=== PATIENT | female | born 1970 | race Caucasian/White ===

== ENCOUNTER 2018-04-28 18:24 | Inpatient (IN) | payer OTHER ==
[~2018-04-28] VITALS: Ht 152.4 cm; Wt 76.5 kg
[~2018-04-28 18:24] MED LIST: ABAC300; ALBU90I INH; ALBU90OI; ALBU90OI INH; AMOCLA875 PO; AZIT250 PO; AZIT500 PO; BENZ100A PO; BUDE200IP INH; BUPR100 PO; CEFD300 PO; CEPH500 PO; CODACE30 PO; CYCL10 PO; Cough Formula118 ML PO; DIPH50 PO; DOXY100 PO; DULERA 200 MCG/13 GM INH; FEXPSEER PO; FLONASE ALLERG9.9 ML INH; FLUSAL5005; FLUT110OIA IH; FLUT44OIA; GABA300 PO; HIZENTRA10 GM/50 M SC; HYDACE5 PO; HYDGUAL120 PO; HYDHOMSY PO; IBUP800; IBUP800 PO; LANS30EC; LEVFLO500 PO; LEVO750 PO; LOPE2C PO; LORA1 PO; MONT10T PO; NAPR500; OXYACE5T PO; Omeprazole20 M1 PO; PAXIL40 MG PO; PENVK500 PO; PRED1 PO; PRED10 PO; PRED20 PO; PRED5 PO; PROM25 PO; RANI150; RXHYDGUAS PO; TIOT18 IH; TRAZ50; TRAZ50 PO; VALS80 PO; Zithromax250 MG PO
[2018-04-28 19:14] LABS: BASOPHILS ABSOLUTE AUTO 0.09 K/mm3 (0.00-0.23); BASOPHILS PERCENT AUTO 0 % (0-2); EOSINOPHILS ABSOLUTE AUTO 0.06 K/mm3 (0.00-0.68); EOSINOPHILS PERCENT AUTO 0 % (0-6); Hematocrit 22.1 % (33.0-51.0); IMMATURE GRAN ABSOLUTE AUTO 0.48 K/mm3 (0.00-0.10); IMMATURE GRAN PERCENT AUTO 1 % (0-1); LYMPHOCYTES ABSOLUTE AUTO 1.71 K/mm3 (0.84-5.20); LYMPHOCYTES PERCENT AUTO 5 % (21-46); MONOCYTES ABSOLUTE AUTO 1.09 K/mm3 (0.16-1.47); MONOCYTES PERCENT AUTO 3 % (4-13); Mean Corpuscular HGB Conc 26.2 g/dL (31.5-36.5); Mean Corpuscular Volume 69 fL (80-100); Mean Platelet Volume 10.6 fL (9.1-12.4); NEUTROPHILS ABSOLUTE AUTO 30.04 K/mm3 (1.96-9.15); NEUTROPHILS PERCENT AUTO 90 % (41-73); NRBC ABSOLUTE 0.03 K/mm3 (0.00-0.02); NRBC Auto 0.1 /100 WBC (0.0-0.2); Platelet Count 278 K/mm3 (150-400); RDW Coefficient Variation 24.1 % (11.7-14.2); RDW Standard Deviation 57.6 fL (35.1-46.3); Red Blood Cell Count 3.22 M/mm3 (3.80-5.20); White Blood Cell Count 33.47 K/mm3 (4.00-11.30)
[2018-04-28 19:20] LABS: Hemoglobin 5.8 g/dL (11.5-16.0)
[2018-04-28 19:21] LABS: Alanine Aminotransfer (ALT/SGP 18 U/L (12-78); Albumin, Blood 3.2 g/dL (3.4-5.0); Alk Phos 119 U/L (50-136); Anion Gap 11 mmol/L (6-16); Aspartate Aminotrans (AST/SGOT 18 U/L (12-37); Bilirubin, Total 0.2 mg/dL (0.1-1.0); Blood Urea Nitrogen 8 mg/dL (8-24); Bun/Creatinine Ratio 10.8 (12.0-20.0); CO2, Blood 22 mmol/L (21-32); Calcium, Blood 8.1 mg/dL (8.5-10.1); Chloride, Blood 106 mmol/L (98-108); Creatinine, Blood 0.74 mg/dL (0.40-1.00); Globulin, Blood 3.3 g/dL (2.2-4.0); Glomerular Filtration Rate >60 (60-); Glucose, Blood 119 mg/dL (70-99); Potassium, Blood 3.7 mmol/L (3.5-5.5); Sodium, Blood 139 mmol/L (136-145); Total Protein, Blood 6.5 g/dL (6.4-8.2)
[2018-04-28] MEDS ORDERED: LOSA50 PO (23:16)
[2018-04-28] MEDS ORDERED: DIPH50 PO (23:20)
[2018-04-28] MEDS ORDERED: ACET325 PO (23:22)
[2018-04-28 23:46] LABS: Source, Urine Catheter
[2018-04-28 23:49] LABS: Bilirubin, Urine Neg (Neg); Blood, Urine Neg (Neg); Glucose Qualitative, Urine Neg (Neg); Ketones, Urine Neg (Neg); Leukocyte Esterase, Urine Neg (Neg); Nitrite, Urine Neg (Neg); Protein, Urine Neg (Neg); Specific Gravity, Urine 1.015 (1.003-1.022); Urobilinogen, Urine NORM (Normal)
[2018-04-28 23:53] LABS: Appearance, Urine Clear (Clear); Color, Urine Yellow (P-Yellow)
[2018-04-29 02:25] LABS: Adenovirus Not Detected (NOT DETECT); Bordetella pertussis Not Detected (NOT DETECT); Chlamydophila pneumoniae Not Detected (NOT DETECT); Coronavirus 229E Not Detected (NOT DETECT); Coronavirus HKU1 Not Detected (NOT DETECT); Coronavirus NL63 Not Detected (NOT DETECT); Coronavirus OC43 Not Detected (NOT DETECT); Human Metapneumovirus Not Detected (NOT DETECT); Human Rhinovirus/Enterovirus Not Detected (NOT DETECT); Influenza A/2009-H1 Not Detected (NOT DETECT); Influenza A/H1 Not Detected (NOT DETECT); Influenza A/H3 Not Detected (NOT DETECT); Influenza B Not Detected (NOT DETECT); Mycoplasma pneumoniae Not Detected (NOT DETECT); Parainfluenza Virus 1 Not Detected (NOT DETECT); Parainfluenza Virus 2 Not Detected (NOT DETECT); Parainfluenza Virus 3 Not Detected (NOT DETECT); Parainfluenza Virus 4 Not Detected (NOT DETECT); Respiratory Syncytial Virus Not Detected (NOT DETECT)
[2018-04-29 05:15] LABS: BASOPHILS ABSOLUTE AUTO 0.05 K/mm3 (0.00-0.23); BASOPHILS PERCENT AUTO 0 % (0-2); EOSINOPHILS ABSOLUTE AUTO 0.06 K/mm3 (0.00-0.68); EOSINOPHILS PERCENT AUTO 0 % (0-6); Hematocrit 19.4 % (33.0-51.0); IMMATURE GRAN ABSOLUTE AUTO 0.24 K/mm3 (0.00-0.10); IMMATURE GRAN PERCENT AUTO 1 % (0-1); LYMPHOCYTES ABSOLUTE AUTO 2.37 K/mm3 (0.84-5.20); LYMPHOCYTES PERCENT AUTO 9 % (21-46); MONOCYTES ABSOLUTE AUTO 1.14 K/mm3 (0.16-1.47); MONOCYTES PERCENT AUTO 4 % (4-13); Mean Corpuscular HGB 18.2 pg (26.0-34.0); Mean Corpuscular HGB Conc 25.8 g/dL (31.5-36.5); Mean Corpuscular Volume 71 fL (80-100); NEUTROPHILS ABSOLUTE AUTO 23.04 K/mm3 (1.96-9.15); NEUTROPHILS PERCENT AUTO 86 % (41-73); NRBC ABSOLUTE 0.03 K/mm3 (0.00-0.02); NRBC Auto 0.1 /100 WBC (0.0-0.2); Platelet Count 262 K/mm3 (150-400); RDW Coefficient Variation 24.6 % (11.7-14.2); RDW Standard Deviation 59.7 fL (35.1-46.3); Red Blood Cell Count 2.75 M/mm3 (3.80-5.20)
[2018-04-29 05:31] LABS: Anion Gap 9 mmol/L (6-16); Blood Urea Nitrogen 9 mg/dL (8-24); Bun/Creatinine Ratio 11.3 (12.0-20.0); CO2, Blood 21 mmol/L (21-32); Calcium, Blood 7.4 mg/dL (8.5-10.1); Chloride, Blood 113 mmol/L (98-108); Glomerular Filtration Rate >60 (60-); Glucose, Blood 105 mg/dL (70-99); Potassium, Blood 3.5 mmol/L (3.5-5.5); Sodium, Blood 143 mmol/L (136-145)
[2018-04-29 18:18] LABS: Influenza A Not Detected (NOT DETECT)
[2018-04-30 07:46] LABS: Hematocrit 19.3 % (33.0-51.0); Mean Corpuscular HGB 18.2 pg (26.0-34.0); Mean Corpuscular HGB Conc 26.4 g/dL (31.5-36.5); Mean Corpuscular Volume 69 fL (80-100); Mean Platelet Volume 10.7 fL (9.1-12.4); NRBC ABSOLUTE 0.09 K/mm3 (0.00-0.02); NRBC Auto 0.5 /100 WBC (0.0-0.2); Platelet Count 369 K/mm3 (150-400); RDW Standard Deviation 59.4 fL (35.1-46.3); White Blood Cell Count 19.88 K/mm3 (4.00-11.30)
[2018-04-30 07:53] LABS: Hemoglobin 5.1 g/dL (11.5-16.0)
[2018-04-30 08:06] LABS: Anion Gap 8 mmol/L (6-16); Blood Urea Nitrogen 6 mg/dL (8-24); Bun/Creatinine Ratio 8.8 (12.0-20.0); CO2, Blood 22 mmol/L (21-32); Calcium, Blood 7.8 mg/dL (8.5-10.1); Chloride, Blood 108 mmol/L (98-108); Creatinine, Blood 0.68 mg/dL (0.40-1.00); Glomerular Filtration Rate >60 (60-); Glucose, Blood 107 mg/dL (70-99); Sodium, Blood 138 mmol/L (136-145)
[2018-05-01 04:14] LABS: Hematocrit 19.7 % (33.0-51.0); Mean Corpuscular HGB 18.1 pg (26.0-34.0); Mean Corpuscular HGB Conc 25.4 g/dL (31.5-36.5); Mean Corpuscular Volume 71 fL (80-100); Mean Platelet Volume 10.9 fL (9.1-12.4); NRBC ABSOLUTE 0.09 K/mm3 (0.00-0.02); NRBC Auto 0.6 /100 WBC (0.0-0.2); Platelet Count 423 K/mm3 (150-400); RDW Coefficient Variation 25.4 % (11.7-14.2); RDW Standard Deviation 61.4 fL (35.1-46.3); Red Blood Cell Count 2.77 M/mm3 (3.80-5.20)
[2018-05-01 22:36] LABS: Stool Occult Blood Guaiac 1 Neg (Neg)
[2018-05-02 03:48] LABS: Hematocrit 21.8 % (33.0-51.0); Mean Corpuscular HGB 18.3 pg (26.0-34.0); Mean Corpuscular HGB Conc 25.7 g/dL (31.5-36.5); Mean Corpuscular Volume 71 fL (80-100); Mean Platelet Volume 9.9 fL (9.1-12.4); NRBC ABSOLUTE 0.16 K/mm3 (0.00-0.02); NRBC Auto 1.2 /100 WBC (0.0-0.2); Platelet Count 575 K/mm3 (150-400); RDW Standard Deviation 60.4 fL (35.1-46.3); Red Blood Cell Count 3.06 M/mm3 (3.80-5.20); White Blood Cell Count 13.25 K/mm3 (4.00-11.30)
[2018-05-02 03:49] LABS: Hemoglobin 5.6 g/dL (11.5-16.0)
[2018-05-03 04:38] LABS: Hematocrit 23.2 % (33.0-51.0); Hemoglobin 6.1 g/dL (11.5-16.0); Mean Corpuscular HGB 19.1 pg (26.0-34.0); Mean Corpuscular HGB Conc 26.3 g/dL (31.5-36.5); Mean Corpuscular Volume 73 fL (80-100); NRBC ABSOLUTE 0.22 K/mm3 (0.00-0.02); NRBC Auto 2.1 /100 WBC (0.0-0.2); Platelet Count 591 K/mm3 (150-400); RDW Coefficient Variation 27.2 % (11.7-14.2); RDW Standard Deviation 60.5 fL (35.1-46.3); White Blood Cell Count 10.68 K/mm3 (4.00-11.30)
[2018-05-03] MEDS ORDERED: GABA300 (14:44)
[2018-05-03] MEDS ORDERED: GUAI600T33 PO (14:45)
[2018-05-03] MEDS ORDERED: ASCO500 PO (14:46)
[2018-05-03] MEDS ORDERED: Ferrous Sulfat325 M2 PO (14:48)
[2018-05-03] MEDS ORDERED: LEVO750 PO (14:48)
== END 2018-05-03 15:45 | disposition home or self-care (01) | DRG 871 ==
LOC: ER 18:24 → PCU 18:25 → ICUW 22:13 → MEDS 05-02 13:55 → ENPENDDIS 05-03 15:00 → MEDS 05-03 15:45
PROVIDERS: Emergency Medicine; Internal Medicine; Nurse Practitioner Acute Care
DX: A41.9 Sepsis, unspecified organism (principal); J18.9 Pneumonia, unspecified organism; J96.01 Acute respiratory failure with hypoxia; J44.0 Chronic obstructive pulmonary disease with (acute) lower respiratory infection; R65.20 Severe sepsis without septic shock; D50.9 Iron deficiency anemia, unspecified; I10 Essential (primary) hypertension
CPT/HCPCS: 36415; 71046; 74150; 80048; 80053; 81003; 82272; 83605; 84145; 85025; 85027; 87040; 87070; 87205; 87449; 87486; 87581; 87633; 87798; 93005; 93010; 94640; 94760; 94761; 96361; 96365; 96375; 97162; 97530; 99285-25; G8978; G8979; G8980; J0696; J0885; J1956; J2405; J2543; J2916; J3010; J3370; J7030; J7050; Q0163

== ENCOUNTER → 2019-02-08 | Outpatient (CLI) | payer OTHER ==
[~2019-02-08] MED LIST changes: +ACET325 PO; +ASCO500 PO; +Ferrous Sulfat325 M2 PO; +GABA300; +GUAI600T33 PO; +LOSA50 PO
[2019-02-08 08:29] LABS: Source, Urine Clean Catch
[2019-02-08 12:18] LABS: Bilirubin, Urine Neg (Neg); Blood, Urine 1+ (Neg); Glucose Qualitative, Urine Neg (Neg); Ketones, Urine Neg (Neg); Leukocyte Esterase, Urine 3+ (Neg); Nitrite, Urine Neg (Neg); Protein, Urine Neg (Neg); Specific Gravity, Urine 1.015 (1.003-1.022); Urobilinogen, Urine NORM (Normal)
[2019-02-08 12:59] LABS: Appearance, Urine Hazy (Clear); Color, Urine Yellow (P-Yellow)
[2019-02-08 13:00] LABS: Squamous Epithelial Cells Many /hpf (Few); White Blood Cells, Urine 25-50 /hpf (0-5)
[2019-02-08 13:01] LABS: Bacteria Mod /hpf
== END ==
LOC: LAB SHORT 08:27 → LAB 08:27
PROVIDERS: Nurse Practitioner Family
DX: N39.0 Urinary tract infection, site not specified (principal)
CPT/HCPCS: 81001

== ENCOUNTER 2019-05-29 13:40 | Emergency (ER) | payer OTHER ==
[~2019-05-29] VITALS: Ht 152.4 cm; Wt 76.2 kg
[2019-05-29 14:21] LABS: BASOPHILS ABSOLUTE AUTO 0.08 K/mm3 (0.00-0.23); BASOPHILS PERCENT AUTO 0 % (0-2); EOSINOPHILS ABSOLUTE AUTO 0.32 K/mm3 (0.00-0.68); EOSINOPHILS PERCENT AUTO 2 % (0-6); Hematocrit 44.8 % (33.0-51.0); Hemoglobin 14.2 g/dL (11.5-16.0); IMMATURE GRAN ABSOLUTE AUTO 0.09 K/mm3 (0.00-0.10); IMMATURE GRAN PERCENT AUTO 1 % (0-1); LYMPHOCYTES ABSOLUTE AUTO 2.66 K/mm3 (0.84-5.20); LYMPHOCYTES PERCENT AUTO 14 % (21-46); MONOCYTES ABSOLUTE AUTO 1.07 K/mm3 (0.16-1.47); MONOCYTES PERCENT AUTO 6 % (4-13); Mean Corpuscular HGB 29.4 pg (26.0-34.0); Mean Corpuscular HGB Conc 31.7 g/dL (31.5-36.5); Mean Corpuscular Volume 93 fL (80-100); Mean Platelet Volume 9.1 fL (9.1-12.4); NEUTROPHILS ABSOLUTE AUTO 15.26 K/mm3 (1.96-9.15); NEUTROPHILS PERCENT AUTO 78 % (41-73); Platelet Count 472 K/mm3 (150-400); RDW Coefficient Variation 13.2 % (11.7-14.2); RDW Standard Deviation 44.9 fL (35.1-46.3); Red Blood Cell Count 4.83 M/mm3 (3.80-5.20); White Blood Cell Count 19.48 K/mm3 (4.00-11.30)
[2019-05-29 14:40] LABS: Alanine Aminotransfer (ALT/SGP 28 U/L (12-78); Albumin, Blood 3.5 g/dL (3.4-5.0); Alk Phos 143 U/L (50-136); Anion Gap 4 mmol/L (6-16); Aspartate Aminotrans (AST/SGOT 19 U/L (12-37); Bilirubin, Total 0.2 mg/dL (0.1-1.0); Blood Urea Nitrogen 9 mg/dL (8-24); Bun/Creatinine Ratio 13.3 (12.0-20.0); CO2, Blood 28 mmol/L (21-32); Calcium, Blood 8.6 mg/dL (8.5-10.1); Chloride, Blood 105 mmol/L (98-108); Creatinine, Blood 0.68 mg/dL (0.40-1.00); Globulin, Blood 3.4 g/dL (2.2-4.0); Glomerular Filtration Rate >60 (60-); Glucose, Blood 98 mg/dL (70-99); Potassium, Blood 4.6 mmol/L (3.5-5.5); Sodium, Blood 137 mmol/L (136-145); Total Protein, Blood 6.9 g/dL (6.4-8.2)
[2019-06-26] MEDS ORDERED: BUPROPION XL150 MG PO
== END 2019-05-29 17:25 | disposition home or self-care (01) ==
LOC: ER 13:40
PROVIDERS: Physician Assistant
DX: G43.909 Migraine, unspecified, not intractable, without status migrainosus (principal); Z87.891 Personal history of nicotine dependence; J44.9 Chronic obstructive pulmonary disease, unspecified; D64.9 Anemia, unspecified; Z88.2 Allergy status to sulfonamides; Z88.8 Allergy status to other drugs, medicaments and biological substances; Z79.899 Other long term (current) drug therapy
CPT/HCPCS: 36415; 70450; 80053; 85025; 96361; 96374; 96375; 99284-25; J0780; J1100; J1200; J1885; J7030

== ENCOUNTER 2019-06-26 23:35 | Inpatient (IN) | payer OTHER ==
[~2019-06-26] VITALS: Ht 152.4 cm; Wt 80.0 kg
[~2019-06-26 23:35] MED LIST changes: +BUPROPION XL150 MG PO
[2019-06-26] MEDS ORDERED: MONT10T PO (23:58)
[2019-06-26] MEDS ORDERED: PARO20 PO (23:58)
[2019-06-26] MEDS ORDERED: GABA300 PO (23:58)
[2019-06-26] MEDS ORDERED: Inderal 20 mg T20 MG PO (23:59)
[2019-06-26] MEDS ORDERED: Pyridium200 MG PO (23:59)
[2019-06-26] MEDS ORDERED: LOSA50 PO (23:59)
[2019-06-26] MEDS ORDERED: BENZ100A PO (23:59)
[2019-06-26] MEDS ORDERED: Ferosul325 MG PO (23:59)
[2019-06-27 00:01] LABS: BASOPHILS ABSOLUTE AUTO 0.09 K/mm3 (0.00-0.23); BASOPHILS PERCENT AUTO 0 % (0-2); EOSINOPHILS PERCENT AUTO 0 % (0-6); Hematocrit 43.4 % (33.0-51.0); Hemoglobin 14.2 g/dL (11.5-16.0); IMMATURE GRAN ABSOLUTE AUTO 0.15 K/mm3 (0.00-0.10); IMMATURE GRAN PERCENT AUTO 1 % (0-1); LYMPHOCYTES ABSOLUTE AUTO 0.94 K/mm3 (0.84-5.20); LYMPHOCYTES PERCENT AUTO 3 % (21-46); MONOCYTES ABSOLUTE AUTO 0.86 K/mm3 (0.16-1.47); MONOCYTES PERCENT AUTO 3 % (4-13); Mean Corpuscular HGB 29.4 pg (26.0-34.0); Mean Corpuscular HGB Conc 32.7 g/dL (31.5-36.5); Mean Corpuscular Volume 90 fL (80-100); Mean Platelet Volume 9.4 fL (9.1-12.4); NEUTROPHILS ABSOLUTE AUTO 25.31 K/mm3 (1.96-9.15); NEUTROPHILS PERCENT AUTO 92 % (41-73); Platelet Count 422 K/mm3 (150-400); RDW Coefficient Variation 13.3 % (11.7-14.2); RDW Standard Deviation 43.6 fL (35.1-46.3); Red Blood Cell Count 4.83 M/mm3 (3.80-5.20); White Blood Cell Count 27.45 K/mm3 (4.00-11.30)
[2019-06-27 00:18] LABS: Alanine Aminotransfer (ALT/SGP 17 U/L (12-78); Albumin, Blood 3.2 g/dL (3.4-5.0); Albumin/Globulin Ratio 0.9 (0.8-1.8); Alk Phos 123 U/L (50-136); Anion Gap 6 mmol/L (6-16); Aspartate Aminotrans (AST/SGOT 23 U/L (12-37); Bilirubin, Total 0.3 mg/dL (0.1-1.0); Blood Urea Nitrogen 7 mg/dL (8-24); Bun/Creatinine Ratio 8.5 (12.0-20.0); CO2, Blood 26 mmol/L (21-32); Calcium, Blood 8.4 mg/dL (8.5-10.1); Chloride, Blood 105 mmol/L (98-108); Creatinine, Blood 0.82 mg/dL (0.40-1.00); Globulin, Blood 3.5 g/dL (2.2-4.0); Glomerular Filtration Rate >60 (60-); Glucose, Blood 114 mg/dL (70-99); Potassium, Blood 3.6 mmol/L (3.5-5.5); Sodium, Blood 137 mmol/L (136-145); Total Protein, Blood 6.7 g/dL (6.4-8.2); Troponin I <0.015 ng/mL (0.000-0.040)
[2019-06-27 00:56] LABS: Influenza A Negative (NEGATIVE)
[2019-06-27 00:57] LABS: Influenza B Negative (NEGATIVE)
[2019-06-27 04:02] LABS: Source, Urine Clean Catch
[2019-06-27 04:04] LABS: Bilirubin, Urine Neg (Neg); Blood, Urine Neg (Neg); Glucose Qualitative, Urine Neg (Neg); Ketones, Urine Neg (Neg); Leukocyte Esterase, Urine Neg (Neg); Nitrite, Urine Neg (Neg); Protein, Urine Neg (Neg); Specific Gravity, Urine 1.015 (1.003-1.022); Urobilinogen, Urine NORM (Normal)
[2019-06-27 04:09] LABS: Appearance, Urine Clear (Clear); Color, Urine Yellow (P-Yellow)
--- NOTE | 2019-06-27 04:56 | NUR ---
Critical lactic acid called to dr but no answer awaiting call back, pt resting quietly, will continue to monitor and treat as appropriate
--- NOTE | 2019-06-27 05:14 | NUR ---
dr ordered bolus remainin fluids then continue with rate of 200, bolus started, will continue to monitor and treat
--- NOTE | 2019-06-27 06:34 | NUR ---
arrived from er via stretcher, states she was able to walk prior to coming to the hospital, good historian, but frequent non productive cough, at bedside, called dr with cv told to bolus remaining ns then to run the next lt of ns at 200, bolus done and 200 ml/h running currently with no s/sx of infection or infiltration, pt is snoring when asleep but a+o when wakened, will continue to monitor and treat as appropriate
[2019-06-27 13:27] LABS: BASOPHILS PERCENT AUTO 0 % (0-2); EOSINOPHILS ABSOLUTE AUTO 0.02 K/mm3 (0.00-0.68); EOSINOPHILS PERCENT AUTO 0 % (0-6); Hematocrit 39.5 % (33.0-51.0); Hemoglobin 12.5 g/dL (11.5-16.0); IMMATURE GRAN ABSOLUTE AUTO 0.26 K/mm3 (0.00-0.10); IMMATURE GRAN PERCENT AUTO 1 % (0-1); LYMPHOCYTES ABSOLUTE AUTO 2.26 K/mm3 (0.84-5.20); LYMPHOCYTES PERCENT AUTO 7 % (21-46); MONOCYTES ABSOLUTE AUTO 0.96 K/mm3 (0.16-1.47); MONOCYTES PERCENT AUTO 3 % (4-13); Mean Corpuscular HGB 29.3 pg (26.0-34.0); Mean Corpuscular HGB Conc 31.6 g/dL (31.5-36.5); Mean Platelet Volume 9.8 fL (9.1-12.4); NEUTROPHILS PERCENT AUTO 89 % (41-73); Platelet Count 330 K/mm3 (150-400); RDW Coefficient Variation 13.8 % (11.7-14.2); RDW Standard Deviation 46.6 fL (35.1-46.3); Red Blood Cell Count 4.26 M/mm3 (3.80-5.20)
[2019-06-27 13:45] LABS: Mean Corpuscular Volume 93 fL (80-100)
[2019-06-27 14:07] LABS: Anion Gap 3 mmol/L (6-16); Blood Urea Nitrogen 7 mg/dL (8-24); Bun/Creatinine Ratio 11.1 (12.0-20.0); CO2, Blood 26 mmol/L (21-32); Calcium, Blood 7.8 mg/dL (8.5-10.1); Chloride, Blood 113 mmol/L (98-108); Creatinine, Blood 0.63 mg/dL (0.40-1.00); Glomerular Filtration Rate >60 (60-); Glucose, Blood 108 mg/dL (70-99); Sodium, Blood 142 mmol/L (136-145)
--- NOTE | 2019-06-27 18:39 | NUR ---
SHIFT SUMMARY. NO ACUTE NEGATIVE CHANGES NOTED THIS SHIFT. PT'S VS HAVE BEEN STABLE. PT HAS BEEN ON 2.5L NC WITH O2 STATS >92%. PT HAS HAD HARSH HACKING NONPRODUCTIVE COUGH, PROVIDER AWARE. PT'S FAMILY AT THE BEDSIDE. PT HAS BEEN IND IN THE ROOM. CALL LIGHT IN REACH, BED IS LOCKED AND LOW WILL CONTINUE TO MONITOR UNTIL REPORT IS GIVEN TO ONCOMING RN.
--- NOTE | 2019-06-28 00:40 | NUR ---
PROVIDER CONTACTED PT REPORTING HEADACHE PAIN OF 10/10 THAT HAS HAD NO RELIEF WITH TYLENOL. PT REQUESTING ALTERNATE MEDICATION. STATES THAT SHE USES LIDOCAINE PATCH AT HOME FOR PAIN TO HEAD/NECK. JANES VELARDE CONTACTED AND ORDERS RECEIVED FOR NORCO 5/325 ONE TIME DOSE AND TO CONTACT PROVIDER LATER IF ALTERNATE ORDERS NEEDED. WILL INPUT AND ADMINISTER.
--- NOTE | 2019-06-28 04:33 | NUR ---
PROVIDER CONTACTED PT CONTINUES TO REPORT HEADACHE PAIN RATING 10/10 ACCOMPANIED WITH NAUSEA. ONE EPISODE OF UNMEASURED EMESIS APPROXIMATELY [address] CARCAMO CONTACTED AND ORDERS TO BE ENTERED BY PROVIDER FOR ZOGAIL AND GUSTABOT. WILL ADMINISTER UPON RECEIPT.
[2019-06-28 04:53] LABS: BASOPHILS ABSOLUTE AUTO 0.06 K/mm3 (0.00-0.23); BASOPHILS PERCENT AUTO 0 % (0-2); EOSINOPHILS ABSOLUTE AUTO 0.12 K/mm3 (0.00-0.68); EOSINOPHILS PERCENT AUTO 1 % (0-6); Hematocrit 40.8 % (33.0-51.0); Hemoglobin 12.3 g/dL (11.5-16.0); IMMATURE GRAN ABSOLUTE AUTO 0.11 K/mm3 (0.00-0.10); IMMATURE GRAN PERCENT AUTO 1 % (0-1); LYMPHOCYTES ABSOLUTE AUTO 1.18 K/mm3 (0.84-5.20); LYMPHOCYTES PERCENT AUTO 6 % (21-46); MONOCYTES ABSOLUTE AUTO 0.58 K/mm3 (0.16-1.47); MONOCYTES PERCENT AUTO 3 % (4-13); Mean Corpuscular HGB 28.5 pg (26.0-34.0); Mean Corpuscular HGB Conc 30.1 g/dL (31.5-36.5); Mean Corpuscular Volume 94 fL (80-100); Mean Platelet Volume 9.8 fL (9.1-12.4); NEUTROPHILS ABSOLUTE AUTO 18.54 K/mm3 (1.96-9.15); NEUTROPHILS PERCENT AUTO 90 % (41-73); Platelet Count 284 K/mm3 (150-400); RDW Coefficient Variation 13.6 % (11.7-14.2); RDW Standard Deviation 47.7 fL (35.1-46.3); Red Blood Cell Count 4.32 M/mm3 (3.80-5.20); White Blood Cell Count 20.59 K/mm3 (4.00-11.30)
[2019-06-28 05:06] LABS: Alanine Aminotransfer (ALT/SGP 16 U/L (12-78); Albumin, Blood 2.7 g/dL (3.4-5.0); Albumin/Globulin Ratio 0.7 (0.8-1.8); Alk Phos 110 U/L (50-136); Anion Gap 6 mmol/L (6-16); Aspartate Aminotrans (AST/SGOT 19 U/L (12-37); Bilirubin, Total 0.2 mg/dL (0.1-1.0); Blood Urea Nitrogen 6 mg/dL (8-24); Bun/Creatinine Ratio 9.8 (12.0-20.0); CO2, Blood 23 mmol/L (21-32); Calcium, Blood 8.2 mg/dL (8.5-10.1); Chloride, Blood 110 mmol/L (98-108); Creatinine, Blood 0.62 mg/dL (0.40-1.00); Globulin, Blood 3.7 g/dL (2.2-4.0); Glomerular Filtration Rate >60 (60-); Glucose, Blood 100 mg/dL (70-99); Potassium, Blood 4.2 mmol/L (3.5-5.5); Sodium, Blood 139 mmol/L (136-145); Total Protein, Blood 6.4 g/dL (6.4-8.2)
--- NOTE | 2019-06-28 07:45 | NUR ---
SHIFT SUMMARY PT HAS REMAINED AOX4 THROUGHOUT SHIFT. VSS. PLEASANT AND COOPERATIVE WITH CARE. PT CONTINUES TO AMBULATE WITH STANDBY ASSIST TO RESTROOM WITHOUT DIFFICULTY. PT APPEARS TO HAVE RESTED THROUGHOUT MUCH OF THE NIGHT, BUT DOES WAKE EASILY FOR CARE. O2 SATS HAVE REMAINED >90% ON 2.5L O2 VIA NASAL CANNULA. DENIES DYSPNEA. PT MEDICATED MULTIPLE TIMES FOR MIGRAINE PAIN THAT SHE REPORTS "DOES NOT DECREASE MUCH" WITH ORDERED MEDICATIONS. PT WITH ONE EPISODE OF UNMEASURED EMESIS THAT ACCOMPANIED MIGRAINE PAIN. REPORTED CONTINUED NAUSEA AFTERWARD THAT DISSIPATED WITH ORDERED MEDICATIONS. PT REPORTS THAT SHE HAS NOT HAD CAFFEINE IN SEVERAL DAYS AND THAT SHE BELIEVES THAT MAY BE A CONTRIBUTING FACTOR. NO OTHER CHANGES NOTED FROM INITIAL ASSESSMENT. WILL CONTINUE TO MONITOR AND REPORT TO ONCOMING SHIFT RN. BED IN LOW POSITION, CALL LIGHT IN REACH.
--- NOTE | 2019-06-28 08:05 | NUR ---
AM NOTE. ASSUMED CARE OF PT APROX 0700, PT IS A&Ox4 AND SBA IN THE ROOM. PT WAS ADMITTED FOR SEPSIS, PT IS ON 2-3 L NC WITH O2 SATS >90%. PT C/O OF 10/10 HEADACHE, R NECK, BACK AND SHOULDER PAIN. PT MEDICATED W/TYLENOL WITH LITTLE RESULTS. PT'S L/S COARSE, TIGHT AND DIM T/O. PT HAS TRACE EDEMA TO HER BLE. PT'S AND DAUGHTER AT THE BEDSIDE. WILL CONTINUE TO MONITOR
--- NOTE | 2019-06-28 17:21 | NUR ---
SHIFT SUMMARY. NO ACUTE NEGATIVE CHANGES NOTED THIS SHIFT. PT'S VS HAVE BEEN STABLE. PT HAS BEEN ON HER BASELINE O2 AT 2L NC WITH O2 SATS >93%. PT HAS BEEN C/O OF HEADACHES T/O SHIFT, PT HAS BEEN MEDICATED PER EMAR, PT STATED THAT SHE DRINKS COFFEE AND OTHER CAFINATED DRINKS ON A DAILY BASIS AT HOME, PT WAS GIVEN COFFEE AND THIS SEEMED TO HELP. PT HAS BEEN SBA TO THE BATHROOM AND HAS BEEN CONT OF BOWEL AND URINE. CALL LIGHT IN REACH, BED IS LOCKED AND LOW WILL CONTINUE TO MONITOR UNTIL REPORT IS GIVEN TO ONCOMING RN.
[2019-06-29 04:11] LABS: BASOPHILS ABSOLUTE AUTO 0.02 K/mm3 (0.00-0.23); BASOPHILS PERCENT AUTO 0 % (0-2); EOSINOPHILS PERCENT AUTO 0 % (0-6); Hematocrit 39.9 % (33.0-51.0); Hemoglobin 12.5 g/dL (11.5-16.0); IMMATURE GRAN ABSOLUTE AUTO 0.15 K/mm3 (0.00-0.10); IMMATURE GRAN PERCENT AUTO 1 % (0-1); LYMPHOCYTES ABSOLUTE AUTO 0.85 K/mm3 (0.84-5.20); LYMPHOCYTES PERCENT AUTO 6 % (21-46); MONOCYTES ABSOLUTE AUTO 0.13 K/mm3 (0.16-1.47); MONOCYTES PERCENT AUTO 1 % (4-13); Mean Corpuscular HGB 28.9 pg (26.0-34.0); Mean Corpuscular HGB Conc 31.3 g/dL (31.5-36.5); Mean Corpuscular Volume 92 fL (80-100); Mean Platelet Volume 9.8 fL (9.1-12.4); NEUTROPHILS ABSOLUTE AUTO 12.38 K/mm3 (1.96-9.15); NEUTROPHILS PERCENT AUTO 92 % (41-73); Platelet Count 375 K/mm3 (150-400); RDW Coefficient Variation 13.5 % (11.7-14.2); RDW Standard Deviation 46.1 fL (35.1-46.3); Red Blood Cell Count 4.33 M/mm3 (3.80-5.20); White Blood Cell Count 13.53 K/mm3 (4.00-11.30)
[2019-06-29 04:31] LABS: Anion Gap 5 mmol/L (6-16); Blood Urea Nitrogen 6 mg/dL (8-24); Bun/Creatinine Ratio 9.6 (12.0-20.0); CO2, Blood 27 mmol/L (21-32); Calcium, Blood 8.7 mg/dL (8.5-10.1); Chloride, Blood 106 mmol/L (98-108); Creatinine, Blood 0.63 mg/dL (0.40-1.00); Glomerular Filtration Rate >60 (60-); Glucose, Blood 139 mg/dL (70-99); Sodium, Blood 138 mmol/L (136-145)
--- NOTE | 2019-06-29 06:36 | NUR ---
villalba successfully treated with medication, quick response minimized discomfort and distress for pt, daughter down in family place, family in room, medicated and treated throughout night, saline locked, 3L via nc, will continue to monitor and treat until bsr provided to day shift and pt.
--- NOTE | 2019-06-29 07:38 | NUR ---
pt laying in bed, wakes easily, a/ox3, pleasant and cooperative with care, follows commands well, denies any complaints of pain, sob or dizziness, lungs are dim t/o, occ wheezing in bases, resp even and unlabored, no cough noted at this time, is on 3 liters 02 via n/c at this time, hrr, tele in place running sr to st per monitor, see strip, trace edema noted to b/l le, ppp+2, cap refill <3sec, vs stable, afebrile, iv site is clear and patent, btx4, hypoactive, voids without diff, skin c/w/d, maew, radhames, call light in reach.
--- NOTE | 2019-06-29 13:30 | NUR ---
PT SITTING UP IN CHAIR FOR LUNCH, DOING WELL, HAD A SHOWER, AND FEELS BETTER. CALL LIGHT IN REACH.
--- NOTE | 2019-06-29 18:36 | NUR ---
PT RESTING IN BED, SHE RECIEVED A ONE TIME DOSE OF LASIX. SHE HAS BEEN CHANGED TO MEDICAL STATUS. NO FURTHER NEEDS OR COMPLAINTS. CALL LIGHT IN REACH.
--- NOTE | 2019-06-30 06:48 | NUR ---
A+O, FAMILY IN ROOM, NONPRODUCTIVE COUGH, 3.5l VIA NC, DENIED PAIN, CALL LIGHT IN REACH, WILL CONTINUE TO MONITOR AND TREAT UNTIL BSR PROVIDED TO PT AND DAY SHIFT NURSE.
--- NOTE | 2019-06-30 08:00 | NUR ---
PT SITTING UP ON SIDE OF BED, SPOUCE IN ROOM. SHE STATES SHE IS DOING OK, SLEPT GOOD LAST NIGHT, NO COMPLAINTS, FEELS LIKE SHE HAS IMPROVED, A/OX3, PLEASANT AND COOPERATIVE WITH CARE, FOLLOWS COMMANDS WELL, LUNGS ARE CLEAR IN UPPER MEEK, DIM IN BASES, CAN AUSCULTATE WHEEZING WITH COUGH, COUGH NONPRODUCTIVE, SHE IS 98% ON 5 LITERS, TURNED HER DOWN TO 4, WILL MONITOR, HRR, TELE IN PLACE RUNNING SR TO ST PER MONITOR, SEE STRIP, NO EDEMA NOTED, PPP+2, CAP REFILL <3SEC, VS STABLE, AFEBRILE, IV SITE IS CLEAR AND PATENT, BTX4, AB FLAT SOFT NONTENDER, VOIDS WITHOUT DIFF, SKIN C/W/D, MAEW, BASHIR, CALL LIGHT IN REACH.
--- NOTE | 2019-06-30 13:30 | NUR ---
PT DOING WELL, SITTING UP ON THE SIDE OF THE BED VISITING. B/P IS HIGH, CALLED DR. LAYTON AND GOT AN EXTRA DOSE OF METOPROLOL THIS AFTERNOON. CALL LIGHT IN REACH.
[2019-06-30] MEDS ORDERED: AZIT500 PO (16:52)
--- NOTE | 2019-06-30 16:52 | NUR ---
DR. LAYTON IS DISCHARGING PT HOME, DICKSON WAS CALLED FOR A O2 TANK TO GET HER HOME. WAS ABLE TO WEAN HER DOWN TO 3 LITERS ON HER 02. DOING WELL. CALL [facility] IN REACH.
[2019-06-30] MEDS ORDERED: CEFU500T30 PO (16:53)
[2019-06-30] MEDS ORDERED: Q-Tussin100 MG/5 M PO (16:54)
[2019-06-30] MEDS ORDERED: METO25ER PO (16:54)
[2019-06-30] MEDS ORDERED: Prednisone20 MG PO (16:59)
--- NOTE | 2019-06-30 17:28 | NUR ---
PT LEFT FOR HOME VIA WHEELCHAIR. IV WAS REMOVED INTACT. ALREADY HAS A F/U APPT. FOR TOMORROW. NEW MEDICATIONS CALLED INTO [facility] IN [place]. HAS ALL HER INSTRUCTIONS OF MEDICATION CHANGES. REMOTE SENSING ANALYST TOOK HER TO CAR VIA WHEELCHAIR.
== END 2019-06-30 17:26 | disposition home or self-care (01) | DRG 871 ==
LOC: ER 23:35 → PCU 06-27 01:57
PROVIDERS: Emergency Medicine; Internal Medicine; ADMIT Hospitalist
DX: A41.9 Sepsis, unspecified organism (principal); J18.1 Lobar pneumonia, unspecified organism; J96.21 Acute and chronic respiratory failure with hypoxia; J96.22 Acute and chronic respiratory failure with hypercapnia; J44.0 Chronic obstructive pulmonary disease with (acute) lower respiratory infection; I10 Essential (primary) hypertension; D64.9 Anemia, unspecified; R65.20 Severe sepsis without septic shock; E66.9 Obesity, unspecified; G43.909 Migraine, unspecified, not intractable, without status migrainosus; G44.89 Other headache syndrome; F32.9 Major depressive disorder, single episode, unspecified; F41.9 Anxiety disorder, unspecified; E63.8 Other specified nutritional deficiencies; F17.210 Nicotine dependence, cigarettes, uncomplicated; Z68.34 Body mass index [BMI] 34.0-34.9, adult; Z99.81 Dependence on supplemental oxygen; Z88.2 Allergy status to sulfonamides; Z79.51 Long term (current) use of inhaled steroids; Z79.899 Other long term (current) drug therapy
CPT/HCPCS: 36415; 71045; 71046; 80048; 80053; 81003; 83605; 84145; 84484; 85025; 87040; 87804; 93005; 93010; 94640; 94667; 94760; 96365; 96367; 99285-25; A9270; A9270-GY; J0456; J0696; J1650; J1940; J2405; J2930; J7030; J7050

== ENCOUNTER 2019-09-18 19:07 | Inpatient (IN) | payer OTHER ==
[~2019-09-18] VITALS: Ht 152.4 cm; Wt 77.7 kg
[~2019-09-18 19:07] MED LIST changes: +CEFU500T30 PO; -FLONASE ALLERG9.9 ML INH; +Ferosul325 MG PO; +Flonase 0.05% N16 GM; +Inderal 20 mg T20 MG PO; +METO25ER PO; +Pexeva40 MG PO; +Prednisone20 MG PO; +Pyridium200 MG PO; +Q-Tussin100 MG/5 M PO
[2019-09-18] MEDS ORDERED: BENZ100A PO (19:25)
[2019-09-18] MEDS ORDERED: ALBU2.5V5 NEB (19:27)
[2019-09-18 20:00] LABS: BASOPHILS ABSOLUTE AUTO 0.05 K/mm3 (0.00-0.23); BASOPHILS PERCENT AUTO 0 % (0-2); EOSINOPHILS ABSOLUTE AUTO 0.06 K/mm3 (0.00-0.68); EOSINOPHILS PERCENT AUTO 0 % (0-6); Hematocrit 42.6 % (33.0-51.0); Hemoglobin 14.1 g/dL (11.5-16.0); IMMATURE GRAN PERCENT AUTO 1 % (0-1); LYMPHOCYTES ABSOLUTE AUTO 3.46 K/mm3 (0.84-5.20); LYMPHOCYTES PERCENT AUTO 17 % (21-46); MONOCYTES ABSOLUTE AUTO 1.34 K/mm3 (0.16-1.47); MONOCYTES PERCENT AUTO 7 % (4-13); Mean Corpuscular HGB 28.7 pg (26.0-34.0); Mean Corpuscular HGB Conc 33.1 g/dL (31.5-36.5); Mean Corpuscular Volume 87 fL (80-100); NEUTROPHILS ABSOLUTE AUTO 15.37 K/mm3 (1.96-9.15); NEUTROPHILS PERCENT AUTO 75 % (41-73); Platelet Count 366 K/mm3 (150-400); RDW Coefficient Variation 13.6 % (11.7-14.2); RDW Standard Deviation 43.8 fL (35.1-46.3); Red Blood Cell Count 4.91 M/mm3 (3.80-5.20); White Blood Cell Count 20.38 K/mm3 (4.00-11.30)
[2019-09-18 21:04] LABS: Anion Gap 6 mmol/L (6-16); Blood Urea Nitrogen 6 mg/dL (8-24); Bun/Creatinine Ratio 9.2 (12.0-20.0); CO2, Blood 27 mmol/L (21-32); Calcium, Blood 8.4 mg/dL (8.5-10.1); Chloride, Blood 101 mmol/L (98-108); Creatinine, Blood 0.66 mg/dL (0.40-1.00); Glomerular Filtration Rate >60 (60-); Glucose, Blood 99 mg/dL (70-99); Potassium, Blood 3.9 mmol/L (3.5-5.5); Sodium, Blood 134 mmol/L (136-145)
[2019-09-19 05:01] LABS: Hematocrit 40.4 % (33.0-51.0); Hemoglobin 13.2 g/dL (11.5-16.0); Mean Corpuscular HGB 28.7 pg (26.0-34.0); Mean Corpuscular HGB Conc 32.7 g/dL (31.5-36.5); Mean Corpuscular Volume 88 fL (80-100); Mean Platelet Volume 9.4 fL (9.1-12.4); Platelet Count 340 K/mm3 (150-400); RDW Coefficient Variation 13.6 % (11.7-14.2); RDW Standard Deviation 43.8 fL (35.1-46.3); White Blood Cell Count 16.31 K/mm3 (4.00-11.30)
[2019-09-19 05:21] LABS: Anion Gap 9 mmol/L (6-16); Blood Urea Nitrogen 9 mg/dL (8-24); Bun/Creatinine Ratio 13.5 (12.0-20.0); CO2, Blood 25 mmol/L (21-32); Calcium, Blood 8.7 mg/dL (8.5-10.1); Chloride, Blood 102 mmol/L (98-108); Creatinine, Blood 0.67 mg/dL (0.40-1.00); Glomerular Filtration Rate >60 (60-); Glucose, Blood 155 mg/dL (70-99); Potassium, Blood 3.6 mmol/L (3.5-5.5); Sodium, Blood 136 mmol/L (136-145)
--- NOTE | 2019-09-19 05:54 | NUR ---
SHIFT SUMMARY PT WAS A NEW ADMIT DURING THE NIGHT, ARRIVING AT 2230. SHE WAS ADMITTED FOR SEPSIS RELATED TO PNEUMONIA. SHE IS A&O X 4, AND A SBA IN THE ROOM. PT DENIED ANY COMPLAINTS OF ACUTE PAIN OR NAUSEA SINCE ADMISSION. PT DID REPORT DYSPNEA WITH EXERTION. SHE IS ON 4L OF O2 VIA NC. HER NORMAL HOME DOSE IS 3L VIA NC. PT DID RUN TACHY DURING THE NIGHT IN THE 100-110S. ALL OTHER VITALS STABLE. PT IS ON CONTINUOUS LR @ 125/HR. NO OTHER ACUTE CHANGES IN PT CONDITION NOTED SINCE ADMISSION. WILL CONTINUE TO MONITOR AND TREAT PER EMAR UNTIL HAND OFF TO DAY SHIFT RN.
--- NOTE | 2019-09-19 16:52 | NUR ---
ALERT. ORIENTED. STANDBY ASSIST WHEN OOB. TELE ON AND RUNNING ST AT 101 AT THIS TIME, BUT EARLIER 80'S. AT THIS TIME HAS MULTIPLE RELATIVES IN ROOM. IV PATENT AND RUNNING LR. MEDICATED FOR HEADACHE W/GOOD RESULTS. NO ACUTE CHANGES. WCTM
--- NOTE | 2019-09-20 00:34 | NUR ---
49 year Female with IGA deficency here since 09/18/19 being tx for sepsis and pneumonia. On IV antibiotics to treat resp infection. PT as home oxygen 3 l nc she uses PRN. Cough harsh hacking, sputum sample sent. Thin light vee. Called PLASTIC PROCESS TECHNICIAN Bernard to discuss home med rec and tachycardia up to 150 with coughing. Her pulse returned to 106 after coughing ceased. PLASTIC PROCESS TECHNICIAN to review home meds and reorder. Baseline PRN tessalon and robitussin for cough. Metoperol for tachycardia. PT is a smoker a few a day. Cessation encouraged. PT self administers IGA via abd weekly to tx IGA deficiency. Family present on room, some rooming in . Hoping to dc home soon. On IV steroids Q 8 hours and oxygen 3 l nc.
[2019-09-20 09:23] LABS: BASOPHILS ABSOLUTE AUTO 0.03 K/mm3 (0.00-0.23); BASOPHILS PERCENT AUTO 0 % (0-2); EOSINOPHILS PERCENT AUTO 0 % (0-6); Hematocrit 40.4 % (33.0-51.0); IMMATURE GRAN ABSOLUTE AUTO 0.21 K/mm3 (0.00-0.10); IMMATURE GRAN PERCENT AUTO 1 % (0-1); LYMPHOCYTES ABSOLUTE AUTO 1.52 K/mm3 (0.84-5.20); LYMPHOCYTES PERCENT AUTO 7 % (21-46); MONOCYTES ABSOLUTE AUTO 0.61 K/mm3 (0.16-1.47); MONOCYTES PERCENT AUTO 3 % (4-13); Mean Corpuscular HGB 28.8 pg (26.0-34.0); Mean Corpuscular HGB Conc 32.2 g/dL (31.5-36.5); Mean Corpuscular Volume 89 fL (80-100); Mean Platelet Volume 9.7 fL (9.1-12.4); NEUTROPHILS PERCENT AUTO 89 % (41-73); Platelet Count 421 K/mm3 (150-400); RDW Coefficient Variation 13.8 % (11.7-14.2); RDW Standard Deviation 45.5 fL (35.1-46.3); Red Blood Cell Count 4.52 M/mm3 (3.80-5.20); White Blood Cell Count 20.77 K/mm3 (4.00-11.30)
[2019-09-20 09:54] LABS: Anion Gap 7 mmol/L (6-16); Blood Urea Nitrogen 13 mg/dL (8-24); Bun/Creatinine Ratio 20.6 (12.0-20.0); CO2, Blood 26 mmol/L (21-32); Chloride, Blood 108 mmol/L (98-108); Creatinine, Blood 0.63 mg/dL (0.40-1.00); Glomerular Filtration Rate >60 (60-); Glucose, Blood 120 mg/dL (70-99); Potassium, Blood 4.2 mmol/L (3.5-5.5); Sodium, Blood 141 mmol/L (136-145)
--- NOTE | 2019-09-20 16:45 | NUR ---
ALERT. ORIENTED. AWARE POSSIBLE D'C TOMORROW MD WANTS TO MAKE SURE CULTURES ARE NEGATIVE. MEDICATED FOR COUGH WITH GOOD RESULTS. UNLABORED RESPIRATIONS ON 3 LPM WHICH IS BASELINE. TELE ON. WCTM.
--- NOTE | 2019-09-20 21:21 | NUR ---
PT had OD in bathroom and revived with narcan around 191. He has been alert denies loc changes. Insists on going outside to smoke. Left room at 2106 in WC. Full assessment done 2099.
--- NOTE | 2019-09-21 05:43 | NUR ---
PT continues at baseline oxygen 3 l prn. Cough well controlled on prn tessalon or robitussin. Continues on zosyn q 6 hours to tx resp infection. PT hoping to dc home today if released because she self administers SQ tx for IGA deficiency. Pleasant and cooperative. Family in and supportive. PT has 5 Children 10 Grandchildren.
[2019-09-21 08:34] LABS: BASOPHILS ABSOLUTE AUTO 0.06 K/mm3 (0.00-0.23); BASOPHILS PERCENT AUTO 0 % (0-2); EOSINOPHILS ABSOLUTE AUTO 0.01 K/mm3 (0.00-0.68); EOSINOPHILS PERCENT AUTO 0 % (0-6); Hematocrit 43.6 % (33.0-51.0); Hemoglobin 13.5 g/dL (11.5-16.0); IMMATURE GRAN ABSOLUTE AUTO 0.41 K/mm3 (0.00-0.10); IMMATURE GRAN PERCENT AUTO 2 % (0-1); LYMPHOCYTES ABSOLUTE AUTO 3.14 K/mm3 (0.84-5.20); LYMPHOCYTES PERCENT AUTO 16 % (21-46); MONOCYTES PERCENT AUTO 7 % (4-13); Mean Corpuscular HGB 28.4 pg (26.0-34.0); Mean Platelet Volume 9.5 fL (9.1-12.4); NEUTROPHILS ABSOLUTE AUTO 14.42 K/mm3 (1.96-9.15); NEUTROPHILS PERCENT AUTO 74 % (41-73); Platelet Count 512 K/mm3 (150-400); RDW Coefficient Variation 13.9 % (11.7-14.2); RDW Standard Deviation 47.4 fL (35.1-46.3); Red Blood Cell Count 4.75 M/mm3 (3.80-5.20); White Blood Cell Count 19.44 K/mm3 (4.00-11.30)
[2019-09-21 08:39] LABS: Mean Corpuscular Volume 92 fL (80-100)
[2019-09-21 08:59] LABS: Anion Gap 5 mmol/L (6-16); Blood Urea Nitrogen 16 mg/dL (8-24); CO2, Blood 28 mmol/L (21-32); Calcium, Blood 8.8 mg/dL (8.5-10.1); Chloride, Blood 110 mmol/L (98-108); Creatinine, Blood 0.89 mg/dL (0.40-1.00); Glomerular Filtration Rate >60 (60-); Glucose, Blood 81 mg/dL (70-99); Potassium, Blood 3.8 mmol/L (3.5-5.5); Sodium, Blood 143 mmol/L (136-145)
[2019-09-21] MEDS ORDERED: LEVO750 PO (14:08)
[2019-09-21] MEDS ORDERED: Prednisone10 MG PO (14:09)
--- NOTE | 2019-09-21 15:19 | NUR ---
SUMMARY PT DISCHARGED TO HOME, PT VERBALIZED UNDERSTANDING OF DISCHARGE ORDERS REGARDING FOLLOW UP AND MEDICATIONS, PT TAKEN OUT SAFELY VIA WHEELCHAIR
== END 2019-09-21 14:28 | disposition home or self-care (01) | DRG 193 ==
LOC: ER 19:07 → MEDS 21:22
PROVIDERS: Emergency Medicine; Family Medicine; ADMIT Internal Medicine
DX: J18.9 Pneumonia, unspecified organism (principal); J96.01 Acute respiratory failure with hypoxia; D80.2 Selective deficiency of immunoglobulin A [IgA]; J44.1 Chronic obstructive pulmonary disease with (acute) exacerbation; J44.0 Chronic obstructive pulmonary disease with (acute) lower respiratory infection; Z99.81 Dependence on supplemental oxygen; F41.8 Other specified anxiety disorders; E66.9 Obesity, unspecified; G43.709 Chronic migraine without aura, not intractable, without status migrainosus; F17.210 Nicotine dependence, cigarettes, uncomplicated; I10 Essential (primary) hypertension; Z68.33 Body mass index [BMI] 33.0-33.9, adult
CPT/HCPCS: 36415; 71045; 71250; 80048; 83605; 85025; 85027; 87040; 87070; 87205; 90686; 94640; 94644; 94760; 96365; 96372-59; 96375; 99285-25; A9270; C9113; J1170; J1650; J2405; J2543; J2930; J7050; J7120; J7512

== ENCOUNTER 2019-12-10 13:23 | Inpatient (IN) | payer OTHER ==
[~2019-12-10] VITALS: Ht 152.4 cm; Wt 56.7 kg
[~2019-12-10 13:23] MED LIST changes: +ALBU2.5V5 NEB; -BUPROPION XL150 MG PO; -Flonase 0.05% N16 GM; -Pexeva40 MG PO
[2019-12-10 14:35] LABS: BASOPHILS ABSOLUTE AUTO 0.05 K/mm3 (0.00-0.23); BASOPHILS PERCENT AUTO 0 % (0-2); EOSINOPHILS ABSOLUTE AUTO 0.08 K/mm3 (0.00-0.68); EOSINOPHILS PERCENT AUTO 0 % (0-6); Hematocrit 40.8 % (33.0-51.0); IMMATURE GRAN PERCENT AUTO 1 % (0-1); LYMPHOCYTES ABSOLUTE AUTO 1.15 K/mm3 (0.84-5.20); LYMPHOCYTES PERCENT AUTO 6 % (21-46); MONOCYTES PERCENT AUTO 4 % (4-13); Mean Corpuscular HGB 27.1 pg (26.0-34.0); Mean Corpuscular HGB Conc 31.9 g/dL (31.5-36.5); Mean Corpuscular Volume 85 fL (80-100); Mean Platelet Volume 9.7 fL (9.1-12.4); NEUTROPHILS ABSOLUTE AUTO 16.45 K/mm3 (1.96-9.15); NEUTROPHILS PERCENT AUTO 89 % (41-73); Platelet Count 397 K/mm3 (150-400); RDW Coefficient Variation 13.5 % (11.7-14.2); RDW Standard Deviation 42.4 fL (35.1-46.3); Red Blood Cell Count 4.79 M/mm3 (3.80-5.20); White Blood Cell Count 18.53 K/mm3 (4.00-11.30)
[2019-12-10 15:20] LABS: Alanine Aminotransfer (ALT/SGP 25 U/L (12-78); Albumin, Blood 3.3 g/dL (3.4-5.0); Albumin/Globulin Ratio 0.9 (0.8-1.8); Alk Phos 129 U/L (50-136); Anion Gap 6 mmol/L (6-16); Aspartate Aminotrans (AST/SGOT 28 U/L (12-37); Bilirubin, Total 0.2 mg/dL (0.1-1.0); Blood Urea Nitrogen 9 mg/dL (8-24); CO2, Blood 24 mmol/L (21-32); Calcium, Blood 8.5 mg/dL (8.5-10.1); Chloride, Blood 101 mmol/L (98-108); Creatinine, Blood 0.75 mg/dL (0.40-1.00); Globulin, Blood 3.7 g/dL (2.2-4.0); Glomerular Filtration Rate >60 (60-); Glucose, Blood 89 mg/dL (70-99); Sodium, Blood 131 mmol/L (136-145)
[2019-12-10] MEDS ORDERED: SPIRIVA RESPIMAT4 GM INH (15:24)
[2019-12-10] MEDS ORDERED: Paxil40 MG PO (15:25)
[2019-12-10] MEDS ORDERED: BUPROPION XL150 MG PO (15:26)
[2019-12-10] MEDS ORDERED: OMEP20ER PO (15:27)
[2019-12-10] MEDS ORDERED: METO25ER PO (15:29)
[2019-12-10] MEDS ORDERED: Prednisone2.5 MG PO (15:30)
[2019-12-10] MEDS ORDERED: FLUT1DIS5 INH (15:31)
[2019-12-10] MEDS ORDERED: GABA300 PO (15:31)
[2019-12-10] MEDS ORDERED: ALBU90OI INH (15:32)
[2019-12-10] MEDS ORDERED: Flonase 0.05% N16 GM (15:32)
[2019-12-10 15:42] LABS: PCO2 Arterial 42.5 mmHg (35-45); pH Blood Arterial 7.37 (7.35-7.45)
[2019-12-10 17:26] LABS: Adenovirus Not Detected (NOT DETECT); Bordetella pertussis Not Detected (NOT DETECT); Chlamydophila pneumoniae Not Detected (NOT DETECT); Coronavirus 229E Detected (NOT DETECT); Coronavirus HKU1 Not Detected (NOT DETECT); Coronavirus NL63 Not Detected (NOT DETECT); Coronavirus OC43 Not Detected (NOT DETECT); Human Metapneumovirus Not Detected (NOT DETECT); Human Rhinovirus/Enterovirus Not Detected (NOT DETECT); Influenza A/2009-H1 Not Detected (NOT DETECT); Influenza A/H1 Not Detected (NOT DETECT); Influenza A/H3 Not Detected (NOT DETECT); Influenza B Not Detected (NOT DETECT); Mycoplasma pneumoniae Not Detected (NOT DETECT); Parainfluenza Virus 1 Not Detected (NOT DETECT); Parainfluenza Virus 2 Not Detected (NOT DETECT); Parainfluenza Virus 3 Not Detected (NOT DETECT); Parainfluenza Virus 4 Not Detected (NOT DETECT); Respiratory Syncytial Virus Not Detected (NOT DETECT)
--- NOTE | 2019-12-10 18:40 | NUR ---
ADMITTED TO RM 363 FROM ER. RESP. PANEL DONE. 2ND SWAB OBTAINED FOR COVID SEND OUT TEST. DOOR CLOSED. ENHANCED DROPLET ISOLATION IN PLACE. SHE IS A&O AND AMBULATORY. SHE DOES NOT USE ANY CANE OR WALKER AT HOME. WHEN ASKED IF SHE HAS HAD ANY FALLS IN THE PAST FEW MONTHS, SHE SAID I DON'T KNOW. SHE SAYS SHE WOKE UP WITH A BRUISE ON HER FACE ONCE A MONTH AGO AND JUST FIGURED SHE FELL IN HER SLEEP AND DIDN'T KNOW IT. SHE HAS A H/A THAT IS GETTING BETTER AND MILD SOB. O2 ON 3L.
--- NOTE | 2019-12-10 21:17 | NUR ---
Primary Care At 1940, this BEDSPREAD SEAMER rounded on 363. I removed a dinner tray from her room and asked if she was comfortable and she had responsed with "Yes". At this time the patient seemed in no distress and was attempting to sleep. During this shift the nurse is primary care.
--- NOTE | 2019-12-11 04:32 | NUR ---
SHIFT SUMMARY: 51 Y/O OBESE FEMALE RESTED COMFORTABLY ALL SHIFT; DENIES PAIN OR NAUSEA; LUNG SOUNDS ARE DIMINISHED THROUGHOUT WHILE WEARING O2 AT 3L/M PER NASAL CANNULA; UP VOID PER SELF; BED LOW POSITION WITH CALL LIGHT AT SIDE; DROPLET ISOLATION MAINTAINED.
[2019-12-11 04:38] LABS: BASOPHILS ABSOLUTE AUTO 0.04 K/mm3 (0.00-0.23); BASOPHILS PERCENT AUTO 0 % (0-2); EOSINOPHILS PERCENT AUTO 0 % (0-6); Hemoglobin 12.7 g/dL (11.5-16.0); IMMATURE GRAN ABSOLUTE AUTO 0.08 K/mm3 (0.00-0.10); IMMATURE GRAN PERCENT AUTO 1 % (0-1); LYMPHOCYTES ABSOLUTE AUTO 0.87 K/mm3 (0.84-5.20); LYMPHOCYTES PERCENT AUTO 5 % (21-46); MONOCYTES ABSOLUTE AUTO 0.12 K/mm3 (0.16-1.47); MONOCYTES PERCENT AUTO 1 % (4-13); Mean Corpuscular HGB 26.9 pg (26.0-34.0); Mean Corpuscular Volume 87 fL (80-100); NEUTROPHILS ABSOLUTE AUTO 15.71 K/mm3 (1.96-9.15); NEUTROPHILS PERCENT AUTO 93 % (41-73); Platelet Count 360 K/mm3 (150-400); RDW Coefficient Variation 13.7 % (11.7-14.2); RDW Standard Deviation 44.3 fL (35.1-46.3); Red Blood Cell Count 4.72 M/mm3 (3.80-5.20); White Blood Cell Count 16.82 K/mm3 (4.00-11.30)
[2019-12-11 05:00] LABS: Alanine Aminotransfer (ALT/SGP 22 U/L (12-78); Albumin, Blood 3.1 g/dL (3.4-5.0); Albumin/Globulin Ratio 0.8 (0.8-1.8); Alk Phos 113 U/L (50-136); Anion Gap 8 mmol/L (6-16); Aspartate Aminotrans (AST/SGOT 21 U/L (12-37); Bilirubin, Total 0.1 mg/dL (0.1-1.0); Blood Urea Nitrogen 11 mg/dL (8-24); Bun/Creatinine Ratio 13.7 (12.0-20.0); CO2, Blood 24 mmol/L (21-32); Calcium, Blood 8.9 mg/dL (8.5-10.1); Chloride, Blood 107 mmol/L (98-108); Glomerular Filtration Rate >60 (60-); Glucose, Blood 125 mg/dL (70-99); Potassium, Blood 4.1 mmol/L (3.5-5.5); Sodium, Blood 139 mmol/L (136-145); Total Protein, Blood 7.1 g/dL (6.4-8.2)
--- NOTE | 2019-12-11 12:40 | NUR ---
PT STATE IMPROVED BREATHING THIS AM. 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 LUNGS DECREASED T/O w CRACKLES LLL. CHRONIC COPD, O2 DEPENDANT @ HOME. SHE IS ON O2 @ 2L, BIOX 95%. SHE IS PLEASANT/COOPERATIVE, STATE PLEURITIC PAIN R/T COUGH, TYLENOL GIVEN FOR RELIEF. SHE TOOK SHOWER TODAY INDEPENDANTLY W/O SOB. DR MARION IN TO SEE HER STATE SHE MAY GO HOME IF FEELING READY, INSTRUCT ON PRECAUTIONS R/T COVID19 WHILE TEST PENDING. PT VERBALIZE UNDERSTANDING, STATE FEELS READY FOR D/C HOME. PLEASANT/APPRECIATIVE AFFECT.
--- NOTE | 2019-12-11 13:01 | NUR ---
ASSUMED CARE OF PATIENT FROM JASVIR HANSON RN AT 1300. PATIENT FOR DISCHARGE PER DR. MATSON, AWAITING ORDERS.
[2019-12-11] MEDS ORDERED: AZIT500 PO (14:45)
[2019-12-11] MEDS ORDERED: CEFD300 PO (14:46)
--- NOTE | 2019-12-11 15:23 | NUR ---
Patient was given doses of iv abx prior to discharge per Dr. Valdez's request. Discharge instructions reviewed with patient including the importance of isolation due to pending covid19 results, follow up with pcp, and picker box operator rx from pharmacy. rx faxed to pharmacy. all personal belongings reconciled and accounted for per patient. Patient escorted to personal vehicle for discharge.
== END 2019-12-11 15:49 | disposition home or self-care (01) | DRG 193 ==
LOC: ER 13:23 → MEDS 17:09
PROVIDERS: Nurse Practitioner; Physician Assistant; ADMIT Internal Medicine
DX: J13 Pneumonia due to Streptococcus pneumoniae (principal); J96.21 Acute and chronic respiratory failure with hypoxia; J44.0 Chronic obstructive pulmonary disease with (acute) lower respiratory infection; J44.1 Chronic obstructive pulmonary disease with (acute) exacerbation; D84.8 Other specified immunodeficiencies; Z99.81 Dependence on supplemental oxygen; I10 Essential (primary) hypertension; E66.9 Obesity, unspecified
CPT/HCPCS: 0099U; 36415; 36600; 80053; 82803; 83605; 85025; 93005; 93010; 94640; 94760; 94762; 96361; 96365; 96375; 99285-25; A9270; J0456; J0696; J1650; J2920; J7030; J7050

== ENCOUNTER → 2020-04-17 | Outpatient (CLI) | payer OTHER ==
[~2020-04-17] MED LIST changes: +BUPROPION XL150 MG PO; +FLUT1DIS5 INH; +Flonase 0.05% N16 GM; +OMEP20ER PO; +Paxil40 MG PO; +Prednisone2.5 MG PO; +SPIRIVA RESPIMAT4 GM INH
[2020-04-17 11:54] LABS: BASOPHILS ABSOLUTE AUTO 0.05 K/mm3 (0.00-0.23); BASOPHILS PERCENT AUTO 1 % (0-2); EOSINOPHILS ABSOLUTE AUTO 0.17 K/mm3 (0.00-0.68); EOSINOPHILS PERCENT AUTO 2 % (0-6); Hematocrit 38.6 % (33.0-51.0); Hemoglobin 12.3 g/dL (11.5-16.0); IMMATURE GRAN ABSOLUTE AUTO 0.03 K/mm3 (0.00-0.10); IMMATURE GRAN PERCENT AUTO 0 % (0-1); LYMPHOCYTES ABSOLUTE AUTO 2.38 K/mm3 (0.84-5.20); LYMPHOCYTES PERCENT AUTO 29 % (21-46); MONOCYTES ABSOLUTE AUTO 0.53 K/mm3 (0.16-1.47); MONOCYTES PERCENT AUTO 7 % (4-13); Mean Corpuscular HGB 27.3 pg (26.0-34.0); Mean Corpuscular HGB Conc 31.9 g/dL (31.5-36.5); Mean Corpuscular Volume 86 fL (80-100); Mean Platelet Volume 9.4 fL (9.1-12.4); NEUTROPHILS ABSOLUTE AUTO 4.95 K/mm3 (1.96-9.15); NEUTROPHILS PERCENT AUTO 61 % (41-73); Platelet Count 367 K/mm3 (150-400); RDW Coefficient Variation 14.6 % (11.7-14.2); RDW Standard Deviation 45.2 fL (35.1-46.3); White Blood Cell Count 8.11 K/mm3 (4.00-11.30)
[2020-04-17 12:04] LABS: Alanine Aminotransfer (ALT/SGP 35 U/L (12-78); Albumin, Blood 3.4 g/dL (3.4-5.0); Alk Phos 153 U/L (40-126); Anion Gap 9 mmol/L (6-16); Aspartate Aminotrans (AST/SGOT 27 U/L (12-37); Bilirubin, Total 0.2 mg/dL (0.1-1.0); Blood Urea Nitrogen 7 mg/dL (8-24); Bun/Creatinine Ratio 8.5 (12.0-20.0); CO2, Blood 29 mmol/L (21-32); Calcium, Blood 8.3 mg/dL (8.5-10.1); Chloride, Blood 102 mmol/L (98-108); Creatinine, Blood 0.82 mg/dL (0.40-1.00); Globulin, Blood 3.4 g/dL (2.2-4.0); Glomerular Filtration Rate >60 (60-); Glucose, Blood 115 mg/dL (70-99); Potassium, Blood 3.6 mmol/L (3.5-5.5); Sodium, Blood 140 mmol/L (136-145); Total Protein, Blood 6.8 g/dL (6.4-8.2)
== END | disposition home or self-care (01) ==
LOC: LAB SHORT 11:50 → LAB EV 11:50
PROVIDERS: Physician Assistant Medical
DX: R60.0 Localized edema (principal)
CPT/HCPCS: 80053; 83880; 85025

== ENCOUNTER 2023-04-20 15:23 | Emergency (ER) | payer OTHER ==
[~2023-04-20] VITALS: Ht 152.4 cm; Wt 78.9 kg
[2023-04-20 15:38] VITALS: BP 99/68
[2023-04-20] MEDS ORDERED: Vibramycin100 MG PO (16:07)
[2023-04-20] MEDS ORDERED: AMOCLA875 PO (16:07)
[2023-04-20] MEDS ORDERED: AMIT50 PO (16:13)
[2023-04-20] MEDS ORDERED: OXYB5 PO (16:14)
== END 2023-04-20 16:10 | disposition home or self-care (01) ==
LOC: ER 15:23
DX: J06.9 Acute upper respiratory infection, unspecified (principal); J44.9 Chronic obstructive pulmonary disease, unspecified; F17.200 Nicotine dependence, unspecified, uncomplicated; Z99.81 Dependence on supplemental oxygen; Z88.2 Allergy status to sulfonamides; Z88.8 Allergy status to other drugs, medicaments and biological substances
CPT/HCPCS: 99283

== ENCOUNTER 2023-05-16 12:11 | Emergency (ER) | payer OTHER ==
[~2023-05-16] VITALS: Ht 152.4 cm; Wt 79.4 kg
[~2023-05-16 12:11] MED LIST changes: +AMIT50 PO; +OXYB5 PO; +Vibramycin100 MG PO
[2023-05-16 12:44] LABS: BASOPHILS ABSOLUTE AUTO 0.15 K/mm3 (0.00-0.23); BASOPHILS PERCENT AUTO 1 % (0-2); EOSINOPHILS ABSOLUTE AUTO 0.43 K/mm3 (0.00-0.68); EOSINOPHILS PERCENT AUTO 2 % (0-6); Hemoglobin 12.8 g/dL (11.5-16.0); IMMATURE GRAN ABSOLUTE AUTO 0.85 K/mm3 (0.00-0.10); IMMATURE GRAN PERCENT AUTO 3 % (0-1); LYMPHOCYTES PERCENT AUTO 10 % (21-46); MONOCYTES ABSOLUTE AUTO 1.49 K/mm3 (0.16-1.47); MONOCYTES PERCENT AUTO 5 % (4-13); Mean Corpuscular HGB 26.8 pg (26.0-34.0); Mean Corpuscular HGB Conc 33.7 g/dL (31.5-36.5); Mean Corpuscular Volume 80 fL (80-100); Mean Platelet Volume 9.3 fL (9.1-12.4); NEUTROPHILS ABSOLUTE AUTO 23.35 K/mm3 (1.96-9.15); NEUTROPHILS PERCENT AUTO 80 % (41-73); NRBC ABSOLUTE 0.04 K/mm3 (0.00-0.02); NRBC Auto 0.1 /100 WBC (0.0-0.2); Platelet Count 499 K/mm3 (150-400); RDW Coefficient Variation 14.6 % (11.7-14.2); RDW Standard Deviation 42.2 fL (35.1-46.3); Red Blood Cell Count 4.77 M/mm3 (3.80-5.20); White Blood Cell Count 29.17 K/mm3 (4.00-11.30)
[2023-05-16 13:02] LABS: Albumin, Blood 2.7 g/dL (3.4-5.0); Albumin/Globulin Ratio 0.7 (0.8-1.8); Bilirubin, Total 0.3 mg/dL (0.1-1.0); Bun/Creatinine Ratio 5.8 (12.0-20.0); Calcium, Blood 9.3 mg/dL (8.5-10.1); Creatinine, Blood 0.69 mg/dL (0.40-1.00); Potassium, Blood 3.2 mmol/L (3.5-5.5); Total Protein, Blood 6.7 g/dL (6.4-8.2)
[2023-05-16 13:12] LABS: Influenza A, PCR NEGATIVE (NEGATIVE); Influenza B, PCR NEGATIVE (NEGATIVE); Resp Syncytial Virus, PCR NEGATIVE (NEGATIVE); SARS-Cov-2 (COVID-19) PCR, MMC NEGATIVE (NEGATIVE)
[2023-05-16 16:50] VITALS: BP 127/67
[2023-05-16] MEDS ORDERED: Prednisone20 MG PO (16:54)
[2023-05-16] MEDS ORDERED: Mucinex600 MG PO (16:54)
[2023-05-16] MEDS ORDERED: Amoxicillin875 MG PO (16:54)
== END 2023-05-16 19:03 | disposition home or self-care (01) ==
LOC: ER 12:11
PROVIDERS: Physician Assistant
DX: J44.1 Chronic obstructive pulmonary disease with (acute) exacerbation (principal); F17.200 Nicotine dependence, unspecified, uncomplicated; Z20.822 Contact with and (suspected) exposure to COVID-19; Z88.2 Allergy status to sulfonamides; Z88.7 Allergy status to serum and vaccine; Z79.899 Other long term (current) drug therapy
CPT/HCPCS: 0241U; 71046; 80053; 83605; 83880; 84484; 85025; 87070; 87205; 93005; 93010; 94640; 94664; 96360; 96361; 99285-25; A9270; J7030; J7512

== ENCOUNTER 2023-10-30 10:15 | Emergency (ER) | payer OTHER ==
[~2023-10-30] VITALS: Ht 152.4 cm; Wt 77.1 kg
[~2023-10-30 10:15] MED LIST changes: +Amoxicillin875 MG PO; +Mucinex600 MG PO
[2023-10-30] MEDS ORDERED: Ketorolac Tromethamine 30mg Vial IV ONE (11:00)
[2023-10-30] MEDS ORDERED: LORazepam 2 MG/ML 1ML Injection IV ONE (11:00)
[2023-10-30 11:25] LABS: BASOPHILS ABSOLUTE AUTO 0.09 K/mm3 (0.00-0.23); BASOPHILS PERCENT AUTO 1 % (0-2); EOSINOPHILS ABSOLUTE AUTO 0.16 K/mm3 (0.00-0.68); EOSINOPHILS PERCENT AUTO 1 % (0-6); Hemoglobin 13.1 g/dL (11.5-16.0); IMMATURE GRAN ABSOLUTE AUTO 0.08 K/mm3 (0.00-0.10); IMMATURE GRAN PERCENT AUTO 0 % (0-1); LYMPHOCYTES ABSOLUTE AUTO 3.45 K/mm3 (0.84-5.20); LYMPHOCYTES PERCENT AUTO 19 % (21-46); MONOCYTES ABSOLUTE AUTO 1.15 K/mm3 (0.16-1.47); MONOCYTES PERCENT AUTO 6 % (4-13); Mean Corpuscular HGB 25.6 pg (26.0-34.0); Mean Corpuscular HGB Conc 31.2 g/dL (31.5-36.5); Mean Corpuscular Volume 82 fL (80-100); Mean Platelet Volume 8.4 fL (9.1-12.4); NEUTROPHILS ABSOLUTE AUTO 12.93 K/mm3 (1.96-9.15); NEUTROPHILS PERCENT AUTO 73 % (41-73); Platelet Count 484 K/mm3 (150-400); RDW Coefficient Variation 14.1 % (11.7-14.2); RDW Standard Deviation 42.2 fL (35.1-46.3); Red Blood Cell Count 5.12 M/mm3 (3.80-5.20); White Blood Cell Count 17.86 K/mm3 (4.00-11.30)
[2023-10-30] MEDS ORDERED: IMITREX50 M2 PO (11:34)
[2023-10-30] MEDS ORDERED: NEURONTIN300 MG PO (11:35)
[2023-10-30 11:36] LABS: Influenza A, PCR NEGATIVE (NEGATIVE); Influenza B, PCR NEGATIVE (NEGATIVE); Resp Syncytial Virus, PCR NEGATIVE (NEGATIVE); SARS-Cov-2 (COVID-19) PCR, MMC NEGATIVE (NEGATIVE)
[2023-10-30] MEDS ORDERED: BACLOFEN10 M4 PO (11:36)
[2023-10-30] MEDS ORDERED: BACL10 PO (11:36)
[2023-10-30 11:44] LABS: Albumin, Blood 3.1 g/dL (3.4-5.0); Albumin/Globulin Ratio 0.8 (0.8-1.8); Bilirubin, Total 0.4 mg/dL (0.1-1.0); Bun/Creatinine Ratio 12.4 (12.0-20.0); Calcium, Blood 9.8 mg/dL (8.5-10.1); Creatinine, Blood 0.57 mg/dL (0.40-1.00); Globulin, Blood 3.8 g/dL (2.2-4.0); Potassium, Blood 4.3 mmol/L (3.5-5.5); Total Protein, Blood 6.9 g/dL (6.4-8.2)
[2023-10-30 13:56] VITALS: BP 121/80
== END 2023-10-30 14:50 | disposition home or self-care (01) ==
LOC: ER 10:15
PROVIDERS: Physician Assistant
DX: J44.0 Chronic obstructive pulmonary disease with (acute) lower respiratory infection (principal); J18.9 Pneumonia, unspecified organism; J44.1 Chronic obstructive pulmonary disease with (acute) exacerbation; Z88.8 Allergy status to other drugs, medicaments and biological substances; Z88.2 Allergy status to sulfonamides; Z79.899 Other long term (current) drug therapy; Z79.52 Long term (current) use of systemic steroids; F17.200 Nicotine dependence, unspecified, uncomplicated
CPT/HCPCS: 0241U; 71046; 80053; 83880; 84484; 85025; 93005; 93010; 96374; 96375; 99285-25; J1885; J2060

== ENCOUNTER → 2024-06-15 | Outpatient (CLI) | payer OTHER ==
[~2024-06-15] MED LIST changes: +BACL10 PO; +BACLOFEN10 M4 PO; +CEPACOL MT; +DELTASONE20 MG PO; +DULERA 100 MCG/13 GM INH; +IMITREX50 M2 PO; +IPRAT-ALBUT 0.5-3 ML INH; +Imitrex25 MG PO; +MICONAZOLE NITR85 GM TOP; +MIRALAX17 GM PO; +NEURONTIN300 MG PO; +NYSTATIN100000 U10 MT; +Neurontin 300300 MG PO; +Prednisone10 MG PO; +SPIRIVA RESPIMAT4 G3 INH; +TRELEGY ELLIPT1 EAC1 INH; +Tessalon200 MG PO
[2024-06-15 17:26] LABS: BASOPHILS ABSOLUTE AUTO 0.09 K/mm3 (0.00-0.23); BASOPHILS PERCENT AUTO 1 % (0-2); EOSINOPHILS ABSOLUTE AUTO 0.37 K/mm3 (0.00-0.68); EOSINOPHILS PERCENT AUTO 2 % (0-6); Hemoglobin 12.2 g/dL (11.5-16.0); IMMATURE GRAN ABSOLUTE AUTO 0.08 K/mm3 (0.00-0.10); IMMATURE GRAN PERCENT AUTO 1 % (0-1); LYMPHOCYTES ABSOLUTE AUTO 2.99 K/mm3 (0.84-5.20); LYMPHOCYTES PERCENT AUTO 19 % (21-46); MONOCYTES ABSOLUTE AUTO 0.83 K/mm3 (0.16-1.47); MONOCYTES PERCENT AUTO 5 % (4-13); Mean Corpuscular HGB 23.2 pg (26.0-34.0); Mean Corpuscular HGB Conc 30.5 g/dL (31.5-36.5); Mean Corpuscular Volume 76 fL (80-100); Mean Platelet Volume 8.9 fL (9.1-12.4); NEUTROPHILS ABSOLUTE AUTO 11.21 K/mm3 (1.96-9.15); NEUTROPHILS PERCENT AUTO 72 % (41-73); Platelet Count 502 K/mm3 (150-400); RDW Coefficient Variation 19.6 % (11.7-14.2); RDW Standard Deviation 53.1 fL (35.1-46.3); Red Blood Cell Count 5.25 M/mm3 (3.80-5.20); White Blood Cell Count 15.57 K/mm3 (4.00-11.30)
== END | disposition home or self-care (01) ==
LOC: LAB SHORT 14:25 → LAB 14:25
PROVIDERS: Internal Medicine Hematology & Oncology
DX: E61.1 Iron deficiency (principal)
CPT/HCPCS: 82728; 83540; 83550; 85025

== ENCOUNTER 2024-07-28 11:22 | Emergency (ER) | payer OTHER ==
[~2024-07-28] VITALS: Ht 152.4 cm; Wt 81.7 kg
[2024-07-28 12:24] LABS: BASOPHILS ABSOLUTE AUTO 0.09 K/mm3 (0.00-0.23); BASOPHILS PERCENT AUTO 1 % (0-2); EOSINOPHILS ABSOLUTE AUTO 0.34 K/mm3 (0.00-0.68); EOSINOPHILS PERCENT AUTO 3 % (0-6); Hematocrit 39.9 % (33.0-51.0); Hemoglobin 12.7 g/dL (11.5-16.0); IMMATURE GRAN ABSOLUTE AUTO 0.12 K/mm3 (0.00-0.10); IMMATURE GRAN PERCENT AUTO 1 % (0-1); LYMPHOCYTES ABSOLUTE AUTO 2.03 K/mm3 (0.84-5.20); LYMPHOCYTES PERCENT AUTO 19 % (21-46); MONOCYTES ABSOLUTE AUTO 0.74 K/mm3 (0.16-1.47); MONOCYTES PERCENT AUTO 7 % (4-13); Mean Corpuscular HGB 24.4 pg (26.0-34.0); Mean Corpuscular HGB Conc 31.8 g/dL (31.5-36.5); Mean Corpuscular Volume 77 fL (80-100); Mean Platelet Volume 8.7 fL (9.1-12.4); NEUTROPHILS ABSOLUTE AUTO 7.46 K/mm3 (1.96-9.15); NEUTROPHILS PERCENT AUTO 69 % (41-73); Platelet Count 577 K/mm3 (150-400); RDW Coefficient Variation 16.8 % (11.7-14.2); RDW Standard Deviation 46.7 fL (35.1-46.3); White Blood Cell Count 10.78 K/mm3 (4.00-11.30)
[2024-07-28 13:01] LABS: Albumin, Blood 2.6 g/dL (3.4-5.0); Albumin/Globulin Ratio 0.7 (0.8-1.8); Bilirubin, Total 0.4 mg/dL (0.1-1.0); Bun/Creatinine Ratio 10.5 (12.0-20.0); Creatinine, Blood 0.57 mg/dL (0.40-1.00); Globulin, Blood 3.9 g/dL (2.2-4.0); Potassium, Blood 3.8 mmol/L (3.5-5.5); Total Protein, Blood 6.5 g/dL (6.4-8.2)
[2024-07-28 15:15] VITALS: BP 156/103
[2024-07-28] MEDS ORDERED: BREZTRI AEROS10.7 GM (15:23)
[2024-07-28] MEDS ORDERED: BACL10 PO (15:24)
[2024-07-28] MEDS ORDERED: Tessalon200 MG PO (15:24)
[2024-07-28] MEDS ORDERED: TOPIRAMATE ER25 M1 PO (15:24)
[2024-07-28] MEDS ORDERED: BUTALB-ACETAMI1 EAC7 PO (15:25)
[2024-07-28] MEDS ORDERED: BENADRYL25 MG PO (15:25)
[2024-07-28] MEDS ORDERED: LOPE2C PO (15:25)
[2024-07-28] MEDS ORDERED: ZYRTEC10 M2 PO (15:25)
[2024-07-28] MEDS ORDERED: PYRIDIUM200 MG PO (15:26)
[2024-07-28 17:47] LABS: Influenza A, PCR NEGATIVE (NEGATIVE); Influenza B, PCR NEGATIVE (NEGATIVE); Resp Syncytial Virus, PCR NEGATIVE (NEGATIVE); SARS-Cov-2 (COVID-19) PCR, MMC NEGATIVE (NEGATIVE)
== END 2024-07-28 18:45 | disposition home or self-care (01) ==
LOC: ER 11:22
PROVIDERS: Physician Assistant; Student in an Organized Health Care Education/Training Program
DX: J44.1 Chronic obstructive pulmonary disease with (acute) exacerbation (principal); F17.200 Nicotine dependence, unspecified, uncomplicated; Z99.81 Dependence on supplemental oxygen; Z79.899 Other long term (current) drug therapy; Z79.51 Long term (current) use of inhaled steroids; Z88.8 Allergy status to other drugs, medicaments and biological substances; Z88.2 Allergy status to sulfonamides
CPT/HCPCS: 0241U; 71260; 80053; 83605; 83880; 84484; 85025; 93005; 93010; 99285-25; Q9967

== ENCOUNTER 2024-08-18 15:38 | Inpatient (IN) | payer OTHER ==
[~2024-08-18] VITALS: Ht 152.4 cm; Wt 64.5 kg
[~2024-08-18 15:38] MED LIST changes: +BENADRYL25 MG PO; +BREZTRI AEROS10.7 GM; +BUTALB-ACETAMI1 EAC7 PO; -Flonase 0.05% N16 GM; -IMITREX50 M2 PO; -IPRAT-ALBUT 0.5-3 ML INH; +IPRAT-ALBUT 0.5-3 ML NEB; +PYRIDIUM200 MG PO; +TOPI25 PO; +ZYRTEC10 M2 PO
[2024-08-18 16:10] LABS: BASOPHILS ABSOLUTE AUTO 0.09 K/mm3 (0.00-0.23); BASOPHILS PERCENT AUTO 0 % (0-2); EOSINOPHILS ABSOLUTE AUTO 0.03 K/mm3 (0.00-0.68); EOSINOPHILS PERCENT AUTO 0 % (0-6); Hematocrit 38.2 % (33.0-51.0); Hemoglobin 12.2 g/dL (11.5-16.0); IMMATURE GRAN ABSOLUTE AUTO 0.26 K/mm3 (0.00-0.10); IMMATURE GRAN PERCENT AUTO 1 % (0-1); LYMPHOCYTES ABSOLUTE AUTO 2.72 K/mm3 (0.84-5.20); LYMPHOCYTES PERCENT AUTO 9 % (21-46); MONOCYTES ABSOLUTE AUTO 1.72 K/mm3 (0.16-1.47); MONOCYTES PERCENT AUTO 6 % (4-13); Mean Corpuscular HGB 24.6 pg (26.0-34.0); Mean Corpuscular HGB Conc 31.9 g/dL (31.5-36.5); Mean Corpuscular Volume 77 fL (80-100); Mean Platelet Volume 8.8 fL (9.1-12.4); NEUTROPHILS ABSOLUTE AUTO 25.12 K/mm3 (1.96-9.15); NEUTROPHILS PERCENT AUTO 84 % (41-73); Platelet Count 457 K/mm3 (150-400); RDW Coefficient Variation 15.9 % (11.7-14.2); RDW Standard Deviation 44.9 fL (35.1-46.3); Red Blood Cell Count 4.96 M/mm3 (3.80-5.20); White Blood Cell Count 29.94 K/mm3 (4.00-11.30)
[2024-08-18] MEDS ORDERED: Ondansetron HCl 2 MG / ML 2ML Vial IV ONE (16:30)
[2024-08-18 16:41] LABS: Albumin, Blood 2.4 g/dL (3.4-5.0); Albumin/Globulin Ratio 0.7 (0.8-1.8); Bilirubin, Total 0.5 mg/dL (0.1-1.0); Bun/Creatinine Ratio 13.6 (12.0-20.0); Calcium, Blood 9.2 mg/dL (8.5-10.1); Creatinine, Blood 0.66 mg/dL (0.40-1.00); Globulin, Blood 3.6 g/dL (2.2-4.0); Potassium, Blood 4.3 mmol/L (3.5-5.5)
[2024-08-18] MEDS ORDERED: NS 1,000 ML IV ONE ×2 (16:42→22:40)
[2024-08-18] MEDS ORDERED: Morphine Sulfate 4 MG/1 ML Injection IV ONE ×2 (17:15→21:40)
[2024-08-18] MEDS ORDERED: NS 1,000 ML IV SCH (17:40)
[2024-08-18 18:08] LABS: Influenza A, PCR NEGATIVE (NEGATIVE); Influenza B, PCR NEGATIVE (NEGATIVE); Resp Syncytial Virus, PCR NEGATIVE (NEGATIVE); SARS-Cov-2 (COVID-19) PCR, MMC NEGATIVE (NEGATIVE)
[2024-08-18] MEDS ORDERED: Piperacillin/Tazobactam Sod 3.375 GM in NS 100 ML IV ONE (18:30)
[2024-08-18 19:21] LABS: Source, Urine Clean Catch
[2024-08-18 19:28] LABS: Appearance, Urine Clear (Clear); Bilirubin, Urine Neg (Neg); Blood, Urine Neg (Neg); Color, Urine Yellow (P-Yellow); Glucose Qualitative, Urine Neg (Neg); Ketones, Urine 2+ (Neg); Leukocyte Esterase, Urine 1+ (Neg); Nitrite, Urine Neg (Neg); Protein, Urine Neg (Neg); Specific Gravity, Urine 1.015 (1.003-1.022); Urobilinogen, Urine NORM (Normal)
[2024-08-18 19:40] LABS: Bacteria Few /hpf; Red Blood Cells, Urine Not Seen /hpf (0-2); Squamous Epithelial Cells Rare /hpf (Few)
[2024-08-18] MEDS ORDERED: Ondansetron HCl 2 MG / ML 2ML Vial IV PRN (22:40)
[2024-08-18] MEDS ORDERED: FentaNYL Citrate 50 MCG/ML 2 ML Injection IV PRN (22:45)
[2024-08-18] MEDS ORDERED: FLU VACC TS2024-25(6MOS UP)/PF 45 MCG/0.5 ML SYRINGE IM ONE (22:45)
[2024-08-18] MEDS ORDERED: Acetaminophen 325 MG TABLET PO PRN (22:45)
[2024-08-19 00:10] LABS: International Normalized Ratio 2.45; Prothrombin Time Results 24.5 Sec (9.7-11.5)
[2024-08-19 00:36] VITALS: BP 110/76
[2024-08-19] MEDS ORDERED: Vancomycin HCL 1,500 MG in NS 250 ML IV ONE (01:15)
[2024-08-19] MEDS ORDERED: Piperacillin/Tazobactam Sod 4.5 GM in NS 100 ML IV SCH (01:28)
[2024-08-19] MEDS ORDERED: Loperamide HCl 2 MG Cap PO PRN (03:35)
[2024-08-19 05:01] VITALS: BP 107/65
[2024-08-19 05:34] LABS: BASOPHILS ABSOLUTE AUTO 0.09 K/mm3 (0.00-0.23); BASOPHILS PERCENT AUTO 0 % (0-2); EOSINOPHILS ABSOLUTE AUTO 0.03 K/mm3 (0.00-0.68); EOSINOPHILS PERCENT AUTO 0 % (0-6); Hematocrit 33.6 % (33.0-51.0); Hemoglobin 10.7 g/dL (11.5-16.0); IMMATURE GRAN ABSOLUTE AUTO 0.24 K/mm3 (0.00-0.10); IMMATURE GRAN PERCENT AUTO 1 % (0-1); LYMPHOCYTES ABSOLUTE AUTO 2.56 K/mm3 (0.84-5.20); LYMPHOCYTES PERCENT AUTO 11 % (21-46); MONOCYTES PERCENT AUTO 8 % (4-13); Mean Corpuscular HGB 24.7 pg (26.0-34.0); Mean Corpuscular HGB Conc 31.8 g/dL (31.5-36.5); Mean Corpuscular Volume 77 fL (80-100); Mean Platelet Volume 8.7 fL (9.1-12.4); NEUTROPHILS ABSOLUTE AUTO 17.91 K/mm3 (1.96-9.15); NEUTROPHILS PERCENT AUTO 80 % (41-73); Platelet Count 414 K/mm3 (150-400); RDW Coefficient Variation 15.8 % (11.7-14.2); RDW Standard Deviation 45.1 fL (35.1-46.3); Red Blood Cell Count 4.34 M/mm3 (3.80-5.20); White Blood Cell Count 22.53 K/mm3 (4.00-11.30)
[2024-08-19 05:48] LABS: International Normalized Ratio 1.23
[2024-08-19 05:57] LABS: Albumin, Blood 2.1 g/dL (3.4-5.0); Albumin/Globulin Ratio 0.7 (0.8-1.8); Bilirubin, Total 0.4 mg/dL (0.1-1.0); Bun/Creatinine Ratio 11.5 (12.0-20.0); Calcium, Blood 8.5 mg/dL (8.5-10.1); Creatinine, Blood 0.7 mg/dL (0.40-1.00); Potassium, Blood 3.5 mmol/L (3.5-5.5); Total Protein, Blood 5.1 g/dL (6.4-8.2)
[2024-08-19] MEDS ORDERED: Ipratropium/Albuterol SulF 2.5-0.5MG/3 ML Amp INH PRN (06:50)
--- NOTE | 2024-08-19 06:54 | NUR ---
NOC SUMMARY- PT ARRIVED TO ROOM IN NO DISTRESS. PT IS VOIDING WELL. PT IS AWARE A STOOL SAMPLE IS NEEDED. PT DENIES N/V. PT DID HAVE SOME R SIDE GROIN PAIN AND WAS TX PER NOV. PT REMAINS ON 1 LPM O2. PT DENIES SOB. PT AMBULATES W/ HER CANE AND SBA. PT REMAINED NPO SINCE MN. CALL LIGHT IN REACH.
[2024-08-19] MEDS ORDERED: Albuterol HFA200 ACT/6.7 GM INH INH PRN (07:10)
[2024-08-19] MEDS ORDERED: [UNRECOGNIZED DRUG - OTHER] INH SCH (07:10)
[2024-08-19] MEDS ORDERED: FORMOTEROL INH SCH (07:10)
[2024-08-19 07:15] VITALS: BP 102/76
[2024-08-19] MEDS ORDERED: Omeprazole 20 MG CapCR PO SCH (07:30)
[2024-08-19] MEDS ORDERED: Mometasone/Formoterol MDI 200/5 mcg 13 GM INH SCH (08:05)
[2024-08-19] MEDS ORDERED: PARoxetine HCl 20 MG Tab PO SCH (09:00)
[2024-08-19] MEDS ORDERED: Gabapentin 300 MG Cap PO SCH (09:00)
[2024-08-19] MEDS ORDERED: Topiramate 25 MG Tab PO SCH (09:00)
[2024-08-19] MEDS ORDERED: oxyBUTYnin chloride 5 MG TAB PO SCH (09:00)
[2024-08-19] MEDS ORDERED: Flonase 0.05% N16 GM (14:47)
[2024-08-19] MEDS ORDERED: IMITREX50 M2 PO (14:57)
[2024-08-19] MEDS ORDERED: Vancomycin HCL 750 MG in NS 250 ML IV SCH (15:00)
[2024-08-19] MEDS ORDERED: Vancomycin HCL 1,000 MG in NS 250 ML IV SCH (15:00)
[2024-08-19 15:18] VITALS: BP 115/66
--- NOTE | 2024-08-19 18:04 | NUR ---
SHIFT SUMMARY: PT A/O X4. PLEASANT AND COOPERATIVE WITH CARE. FAXED FACESHEET THIS AM TO INTERVENTIONAL RADIOLOGY FOR R. HIP ABSCESS. IR CALLED AND STATED ABSCESS WAS TOO SMALL TO DRAIN. DR. OLEARY IN ROOM THIS SHIFT FOR CONSULT WELL. NO SCHEDULED SURGERY AT THIS TIME. MULTIPLE IV ABX INFUSED W/O COMPLICATIONS. SBA c CANE WITH ALL TRANSFERS. MEDICATED PER EMAR 3 TIMES FOR 10/10 R. HIP PAIN. CALL LIGHT IN REACH. BED IN LOWEST POSITION.
[2024-08-19 19:28] VITALS: BP 94/39
[2024-08-19] MEDS ORDERED: NS 250 ML IV PRN (20:05)
[2024-08-19] MEDS ORDERED: Lactobacil 2-S.Thermo-Bifido 1 1 Cap PO SCH (21:00)
[2024-08-19 21:37] VITALS: BP 100/58
[2024-08-20 02:05] VITALS: BP 101/53
[2024-08-20 02:13] LABS: BASOPHILS ABSOLUTE AUTO 0.09 K/mm3 (0.00-0.23); BASOPHILS PERCENT AUTO 0 % (0-2); EOSINOPHILS ABSOLUTE AUTO 0.05 K/mm3 (0.00-0.68); EOSINOPHILS PERCENT AUTO 0 % (0-6); Hematocrit 32.5 % (33.0-51.0); Hemoglobin 10.2 g/dL (11.5-16.0); IMMATURE GRAN ABSOLUTE AUTO 0.27 K/mm3 (0.00-0.10); IMMATURE GRAN PERCENT AUTO 1 % (0-1); LYMPHOCYTES PERCENT AUTO 11 % (21-46); MONOCYTES ABSOLUTE AUTO 1.44 K/mm3 (0.16-1.47); MONOCYTES PERCENT AUTO 7 % (4-13); Mean Corpuscular HGB 25.1 pg (26.0-34.0); Mean Corpuscular HGB Conc 31.4 g/dL (31.5-36.5); Mean Corpuscular Volume 80 fL (80-100); Mean Platelet Volume 8.9 fL (9.1-12.4); NEUTROPHILS ABSOLUTE AUTO 17.61 K/mm3 (1.96-9.15); NEUTROPHILS PERCENT AUTO 81 % (41-73); Platelet Count 417 K/mm3 (150-400); RDW Coefficient Variation 15.8 % (11.7-14.2); RDW Standard Deviation 45.9 fL (35.1-46.3); Red Blood Cell Count 4.07 M/mm3 (3.80-5.20); White Blood Cell Count 21.86 K/mm3 (4.00-11.30)
[2024-08-20 02:21] LABS: International Normalized Ratio 1.25; Prothrombin Time Results 13.2 Sec (9.7-11.5)
[2024-08-20 02:24] LABS: Anion Gap 11 mmol/L (3-11); Blood Urea Nitrogen 6 mg/dL (8-24); Bun/Creatinine Ratio 7.9 (12.0-20.0); CO2, Blood 24 mmol/L (21-32); Calcium, Blood 8.2 mg/dL (8.5-10.1); Chloride, Blood 103 mmol/L (98-108); Creatinine, Blood 0.76 mg/dL (0.40-1.00); Glomerular Filtration Rate 92 (60-); Glucose, Blood 127 mg/dL (70-99); Potassium, Blood 3.6 mmol/L (3.5-5.5); Sodium, Blood 134 mmol/L (136-145); Vancomycin, Trough 14.6 ug/mL (5.0-10.0)
--- NOTE | 2024-08-20 03:48 | NUR ---
SHIFT SUMMARY ADMITTED FOR ILIOPSOAS ABSCESS OF R. HIP. FULL CODE. IV ANTIB RX ARE SCHEDULED. TELEMETRY: TACHY @ 108 BPM. STANDBY ASSIST W/CANE. 1 LPM O2 VIA NC IS BASELINE. IR AND SURGICAL CONSULTS HAVE BEEN ORDERED. REGULAR DIET. A&O X4. CONTINENT. TODAY IS HER BIRTHDAY. SHE DENIES PAIN THIS SHIFT. NO NEW CONCERNS.
[2024-08-20 07:37] VITALS: BP 99/73
--- NOTE | 2024-08-20 10:14 | NUR ---
NOTE PT REPORTED DR. OLEARY STOPPING BY TO SEE HER THIS AM DURING BREAKFAST. PER PT, DR. OLEARY REPORTED SHE SHOULD BE NPO FOR PROCEDURE, BUT SINCE SHE ALREADY ATE THIS AM, SHE COULD CONTINUE AND THEY WOULD FIGURE OUT PLAN. THIS RN DID NOT RECEIVE NURSE NOTIFICATION ABOUT PT TO BE NPO FOR PROCEDURE. NO ORDER IN PLACE FOR PATIENT TO BE NPO. PATIENT HAS BEEN DRINKING ALL NIGHT. PER PT WAS NOT NOTIFIED TO BE NPO WELL BY DOCTORS. CALLED DR. OLEARY FOR A PLAN UPDATE, DR. OLEARY REPORTED PT NEEDS INTERVENTIONAL RADIOLOGY TO PUT IN ABSCESS DRAIN, AND THAT PT SHOULD BE NPO UNTIL DRAIN IS PLACED. PT WILL BE PLACED ON NPO NOW.
[2024-08-20 15:57] VITALS: BP 97/62
[2024-08-20 17:20] VITALS: BP 105/71
--- NOTE | 2024-08-20 18:14 | NUR ---
SHIFT SUMMARY PT A&OX4. PT ADMITTED DUE TO ILIOPSOAS ABSCESS ON R HIP. PT WENT TO IMAGING THIS EVENING FOR A ULTRASOUND. PT IS A SBA WITH CANE. PT ON 1L OF O2 VIA N/C AND IS ON 1L OF O2 AT BASELINE. SATS ARE 99%. PT ON TELE. PT REPORTS PAIN AT R HIP, MEDICATED PER EMAR. NOT ABLE TO GET STOOL SAMPLE DURING SHIFT FOR C-DIFF ROLL OUT, PT ON CONTACT PERCAUTIONS. CALLED DR. COLLINS FOR UPDATE, DR. COLLINS NOTIFIED TO KEEP PT NPO AT MIDNIGHT AND PT WILL GO FOR PROCEDURE TOMORROW.
[2024-08-20 20:10] VITALS: BP 103/80
[2024-08-21 03:41] VITALS: BP 103/62
--- NOTE | 2024-08-21 05:02 | NUR ---
SHIFT SUMMARY ADMITTED FOR ILIOPSOAS ABSCESS OF RT. HIP. FULL CODE. IV ANTIB ARE SCHEDULED. PLAN IS FOR IR TO DRAIN THE ABSCESS TODAY. SURGICAL CONSULT IS DR. OLEARY. TELEMETRY: NSR @ 98 BPM. REGULAR DIET. A&O X4. 1 ASSIST W/CANE - BRP. NO NEW CONCERNS THIS SHIFT.
[2024-08-21 05:06] LABS: BASOPHILS ABSOLUTE AUTO 0.06 K/mm3 (0.00-0.23); BASOPHILS PERCENT AUTO 0 % (0-2); EOSINOPHILS ABSOLUTE AUTO 0.06 K/mm3 (0.00-0.68); EOSINOPHILS PERCENT AUTO 0 % (0-6); Hematocrit 30.3 % (33.0-51.0); Hemoglobin 9.4 g/dL (11.5-16.0); IMMATURE GRAN PERCENT AUTO 1 % (0-1); LYMPHOCYTES ABSOLUTE AUTO 2.04 K/mm3 (0.84-5.20); LYMPHOCYTES PERCENT AUTO 15 % (21-46); MONOCYTES ABSOLUTE AUTO 0.82 K/mm3 (0.16-1.47); MONOCYTES PERCENT AUTO 6 % (4-13); Mean Corpuscular HGB 24.5 pg (26.0-34.0); Mean Corpuscular Volume 79 fL (80-100); Mean Platelet Volume 9.2 fL (9.1-12.4); NEUTROPHILS PERCENT AUTO 78 % (41-73); Platelet Count 418 K/mm3 (150-400); RDW Standard Deviation 45.9 fL (35.1-46.3); Red Blood Cell Count 3.84 M/mm3 (3.80-5.20); White Blood Cell Count 13.68 K/mm3 (4.00-11.30)
[2024-08-21 05:22] LABS: International Normalized Ratio 1.05; Prothrombin Time Results 11.2 Sec (9.7-11.5)
[2024-08-21 05:35] LABS: Bun/Creatinine Ratio 7.5 (12.0-20.0); Calcium, Blood 8.5 mg/dL (8.5-10.1); Creatinine, Blood 0.93 mg/dL (0.40-1.00); Potassium, Blood 3.2 mmol/L (3.5-5.5)
[2024-08-21 07:38] VITALS: BP 110/66
[2024-08-21] MEDS ORDERED: Potassium Chloride 20 MEQ TabCR PO ONE (08:55)
[2024-08-21 12:14] LABS: Campylobacter Sp Not Detected (NOT DETECT)
[2024-08-21 12:15] LABS: Adenovirus F 40/41 Not Detected (NOT DETECT); Astrovirus Not Detected (NOT DETECT); Cryptosporidium Not Detected (NOT DETECT); Cyclospora Cayetanensis Not Detected (NOT DETECT); E. Coli O157 Not Detected (NOT DETECT); Entamoeba Histolytica Not Detected (NOT DETECT); Enteroaggregative E. coli-EAEC Not Detected (NOT DETECT); Enteropathogenic E. coli-EPEC Not Detected (NOT DETECT); Enterotoxigenic E. coli-ETEC Not Detected (NOT DETECT); Giardia Lamblia Detected (NOT DETECT); Norovirus GI/GII Not Detected (NOT DETECT); Plesiomonas Shigelloides Not Detected (NOT DETECT); Rotavirus A Not Detected (NOT DETECT); Salmonella Sp Not Detected (NOT DETECT); Sapovirus Not Detected (NOT DETECT); Shiga Toxin-prod E. coli-STEC Not Detected (NOT DETECT); Shigella/Enteroin E. coli-EIEC Not Detected (NOT DETECT); Vibrio Cholerae Not Detected (NOT DETECT); Vibrio Sp Not Detected (NOT DETECT); Yersinia Enterocolitica Not Detected (NOT DETECT)
[2024-08-21 14:56] VITALS: BP 111/72
[2024-08-21] MEDS ORDERED: Enoxaparin 40 MG/0.4 ML SYR SC SCH (15:00)
--- NOTE | 2024-08-21 18:01 | NUR ---
SHIFT SUMMARY: PT AOX4 VERY PLEASANT MOOD AND AFFECT. WAS NPO AT BEGINING OF SHIFT TOLD THAT WE WERE WAITING FOR A PROCEDURE. AFTER DIGGING AND INVESTIGATING FOUND OUT THE PROCEDURE WAS PERFORMED THE EVENING PRIOR AND NOT DOCUMENTED PROPERLY. PATIENT PUT ON HEART HEALTHY DIET AND HAS BEEN HAVING GOOD PO INTAKE. TOLERATING DIET WELL. COMPLAINTS OF DIARRHEA, SEE GI PANEL. AWAITING ORDERS FOR NEW FOUND INFECTION. PT VERY PLEASANT AND PATIENT. RESTING IN BED, BED IN LOWEST POSITION, CALL LIGHT IN REACH. CONTINUING CARE.
--- NOTE | 2024-08-21 18:06 | NUR ---
THIS DIVISION TOLL WIRE CHIEF HAS REVIEWED AND AGREES WITH ALL NOTES AND ASSESSMENTS BY DURGA SHEPHERD.
[2024-08-21 19:39] VITALS: BP 98/59
[2024-08-21] MEDS ORDERED: MetroNIDAZOLE 500 MG Tab PO SCH (21:00)
[2024-08-22 02:31] LABS: Anion Gap 9 mmol/L (3-11); Blood Urea Nitrogen 6 mg/dL (8-24); CO2, Blood 26 mmol/L (21-32); Calcium, Blood 8.4 mg/dL (8.5-10.1); Chloride, Blood 111 mmol/L (98-108); Creatinine, Blood 0.85 mg/dL (0.40-1.00); Glomerular Filtration Rate 81 (60-); Glucose, Blood 101 mg/dL (70-99); Sodium, Blood 142 mmol/L (136-145); Vancomycin, Trough 24.7 ug/mL (5.0-10.0)
[2024-08-22 04:21] VITALS: BP 107/66
[2024-08-22 05:24] LABS: BASOPHILS ABSOLUTE AUTO 0.07 K/mm3 (0.00-0.23); BASOPHILS PERCENT AUTO 1 % (0-2); EOSINOPHILS ABSOLUTE AUTO 0.14 K/mm3 (0.00-0.68); EOSINOPHILS PERCENT AUTO 2 % (0-6); Hematocrit 30.3 % (33.0-51.0); Hemoglobin 9.1 g/dL (11.5-16.0); IMMATURE GRAN ABSOLUTE AUTO 0.06 K/mm3 (0.00-0.10); IMMATURE GRAN PERCENT AUTO 1 % (0-1); LYMPHOCYTES ABSOLUTE AUTO 2.07 K/mm3 (0.84-5.20); LYMPHOCYTES PERCENT AUTO 24 % (21-46); MONOCYTES ABSOLUTE AUTO 0.48 K/mm3 (0.16-1.47); MONOCYTES PERCENT AUTO 6 % (4-13); Mean Corpuscular HGB 24.5 pg (26.0-34.0); Mean Corpuscular Volume 82 fL (80-100); Mean Platelet Volume 9.2 fL (9.1-12.4); NEUTROPHILS ABSOLUTE AUTO 5.97 K/mm3 (1.96-9.15); NEUTROPHILS PERCENT AUTO 68 % (41-73); Platelet Count 394 K/mm3 (150-400); RDW Standard Deviation 47.8 fL (35.1-46.3); Red Blood Cell Count 3.71 M/mm3 (3.80-5.20); White Blood Cell Count 8.79 K/mm3 (4.00-11.30)
--- NOTE | 2024-08-22 06:39 | NUR ---
SHIFT SUMMARY AT START OF SHIFT, PT SITTING IN HER BED WATCHING TV. PT IS PLEASANT AND COOPERATIVE WITH CARE. MEDICATED FOR 10/10 PAIN IN RIGHT HIP/LEG APPROX 0015. PT LYING IN BED SLEEPING COMFORTABLY. VANCO TROUGH 24.7 CRITICAL LAB 0230. ORDER FROM PHARMACY TO HOLD 0300 VANCO DOSE. PT SLEPT PEACFULLY FOR DURATION OF SHIFT.
[2024-08-22 08:02] VITALS: BP 125/73
[2024-08-22 14:36] LABS: Vancomycin, Random 16.1 ug/mL
[2024-08-22 16:03] VITALS: BP 119/72
--- NOTE | 2024-08-22 18:26 | NUR ---
SHIFT SUMMARY PT A&OX4, VSS, AMB IND, TOLERATING PO, VOIDING, AND PAIN MANAGED PER EMAR. PT C/O DIARRHEA AND NAUSEA/VOMITING X1 THAT WAS MEDICATED PER EMAR. ABSCESS CULTURE PENDING. NO OTHER ACUTE CHANGES. CALL LIGHT WITHIN REACH AND PT ABLE TO MAKE NEEDS KNOWN.
[2024-08-22 20:24] VITALS: BP 121/72
[2024-08-23 02:47] VITALS: BP 105/64
--- NOTE | 2024-08-23 06:38 | NUR ---
SHIFT SUMMARY ASSUMED CARE OF PT AT APPROX 1900. PT A&O4, COOPERATIVE IN CARE AND ABLE TO MAKE NEEDS KNOWN. VSS AND PT REMAINED ON BASELINE 1L NC OVERNIGHT. NO ACUTE EVENTS TO REPORT OVERNIGHT. PT DENIES CP/PRESSURE AND SOB. BED IN LOWEST POSITION AND CALL LIGHT WITHIN REACH.
[2024-08-23 07:23] VITALS: BP 129/79
[2024-08-23] MEDS ORDERED: OxyCODONE HCL 5 MG TAB PO PRN (12:25)
[2024-08-23] MEDS ORDERED: AMOCLA875 PO (14:41)
[2024-08-23] MEDS ORDERED: VISBIOME 112.51 EACH PO (14:41)
[2024-08-23] MEDS ORDERED: OXAYDO5 M1 PO (14:42)
[2024-08-23] MEDS ORDERED: ONDA4ODT MM (14:42)
--- NOTE | 2024-08-23 15:50 | NUR ---
DISCHARGE NOTE PT DISCHARGED HOME AT 1550. PT PROVIDED W/ VERBAL AND WRITTEN INSTRUCTIONS AND REPORTED UNDERSTANDING. PT A&OX4, VSS, AMB IND, TOLERATING PO, VOIDING, AND PAIN MANAGED PER EMAR. BELONGINGS WERE RETURNED AND PT ESCOURTED OUT VIA W/C BY TRANSPORT.
== END 2024-08-23 15:55 | disposition home or self-care (01) | DRG 871 ==
LOC: ER 15:38 → ERHOLD 22:25 → MEDS 22:25 → ENPENDDIS 08-23 13:48 → MEDS 08-23 15:55
PROVIDERS: Emergency Medicine; Family Medicine; Student in an Organized Health Care Education/Training Program; ADMIT Internal Medicine
PROC: 3E03329 Introduction of Other Anti-infective into Peripheral Vein, Percutaneous Approach (ICD-10-PCS; 2024-08-19)
PROC: 0K9N30Z Drainage of Right Hip Muscle with Drainage Device, Percutaneous Approach (ICD-10-PCS; principal; 2024-08-20)
DX: A41.9 Sepsis, unspecified organism (principal); J18.9 Pneumonia, unspecified organism; K68.12 Psoas muscle abscess; D68.9 Coagulation defect, unspecified; E87.1 Hypo-osmolality and hyponatremia; D80.2 Selective deficiency of immunoglobulin A [IgA]; J96.11 Chronic respiratory failure with hypoxia; J44.0 Chronic obstructive pulmonary disease with (acute) lower respiratory infection; Z99.81 Dependence on supplemental oxygen; D64.89 Other specified anemias; F32.A Depression, unspecified; K52.9 Noninfective gastroenteritis and colitis, unspecified; D63.8 Anemia in other chronic diseases classified elsewhere; Z87.01 Personal history of pneumonia (recurrent); Z90.49 Acquired absence of other specified parts of digestive tract; Z85.038 Personal history of other malignant neoplasm of large intestine; Z79.899 Other long term (current) drug therapy; Z88.2 Allergy status to sulfonamides; Z88.8 Allergy status to other drugs, medicaments and biological substances
CPT/HCPCS: 0241U; 10030; 36415; 71045; 74177; 80048; 80053; 80202; 81001; 83605; 83690; 83880; 85025; 85610; 85730; 87040; 87070; 87075; 87076; 87086; 87205; 87507; 94640; 94664; 94760; 96361; 96365; 96375; 96376; 99285-25; A9270; J1650; J2270; J2405; J2543; J3010; J3370; J7030; J7050; Q9967

== ENCOUNTER 2024-09-16 10:47 | Inpatient (IN) | payer OTHER ==
[~2024-09-16] VITALS: Ht 152.4 cm; Wt 65.8 kg
[~2024-09-16 10:47] MED LIST changes: +Flonase 0.05% N16 GM; +IMITREX50 M2 PO; +ONDA4ODT MM; +OXAYDO5 M1 PO; +VISBIOME 112.51 EACH PO
[2024-09-16] MEDS ORDERED: Ondansetron HCl 2 MG / ML 2ML Vial IV ONE (11:05)
[2024-09-16 11:08] LABS: BASOPHILS ABSOLUTE AUTO 0.08 K/mm3 (0.00-0.23); BASOPHILS PERCENT AUTO 1 % (0-2); EOSINOPHILS ABSOLUTE AUTO 0.16 K/mm3 (0.00-0.68); EOSINOPHILS PERCENT AUTO 1 % (0-6); Hematocrit 36.9 % (33.0-51.0); Hemoglobin 11.7 g/dL (11.5-16.0); IMMATURE GRAN ABSOLUTE AUTO 0.11 K/mm3 (0.00-0.10); IMMATURE GRAN PERCENT AUTO 1 % (0-1); LYMPHOCYTES ABSOLUTE AUTO 2.55 K/mm3 (0.84-5.20); LYMPHOCYTES PERCENT AUTO 15 % (21-46); MONOCYTES ABSOLUTE AUTO 0.78 K/mm3 (0.16-1.47); MONOCYTES PERCENT AUTO 5 % (4-13); Mean Corpuscular HGB 24.6 pg (26.0-34.0); Mean Corpuscular HGB Conc 31.7 g/dL (31.5-36.5); Mean Corpuscular Volume 78 fL (80-100); Mean Platelet Volume 8.7 fL (9.1-12.4); NEUTROPHILS ABSOLUTE AUTO 12.85 K/mm3 (1.96-9.15); NEUTROPHILS PERCENT AUTO 78 % (41-73); Platelet Count 505 K/mm3 (150-400); RDW Coefficient Variation 15.2 % (11.7-14.2); RDW Standard Deviation 43.1 fL (35.1-46.3); Red Blood Cell Count 4.76 M/mm3 (3.80-5.20); White Blood Cell Count 16.53 K/mm3 (4.00-11.30)
[2024-09-16 11:34] LABS: Albumin, Blood 2.7 g/dL (3.4-5.0); Albumin/Globulin Ratio 0.8 (0.8-1.8); Bilirubin, Total 0.3 mg/dL (0.1-1.0); Bun/Creatinine Ratio 7.7 (12.0-20.0); Calcium, Blood 9.4 mg/dL (8.5-10.1); Creatinine, Blood 0.65 mg/dL (0.40-1.00); Globulin, Blood 3.4 g/dL (2.2-4.0); Potassium, Blood 3.5 mmol/L (3.5-5.5); Total Protein, Blood 6.1 g/dL (6.4-8.2)
[2024-09-16 12:17] LABS: Source, Urine Voided
[2024-09-16 12:21] LABS: Appearance, Urine Clear (Clear); Bilirubin, Urine Neg (Neg); Blood, Urine Neg (Neg); Color, Urine Yellow (P-Yellow); Glucose Qualitative, Urine Neg (Neg); Ketones, Urine 2+ (Neg); Leukocyte Esterase, Urine Neg (Neg); Nitrite, Urine Neg (Neg); Protein, Urine Neg (Neg); Urobilinogen, Urine NORM (Normal)
[2024-09-16 13:02] LABS: CORONAVIRUS COVID-19 AG Negative (NEGATIVE); INFLUENZA A AG Negative (NEGATIVE); INFLUENZA B AG Negative (NEGATIVE)
[2024-09-16] MEDS ORDERED: Metoclopramide HCl 5MG / ML 2ML Vial IV ONE (18:45)
[2024-09-17 00:27] LABS: Adenovirus F 40/41 Not Detected (NOT DETECT); Astrovirus Not Detected (NOT DETECT); Campylobacter Sp Not Detected (NOT DETECT); Cryptosporidium Not Detected (NOT DETECT); Cyclospora Cayetanensis Not Detected (NOT DETECT); E. Coli O157 Not Detected (NOT DETECT); Entamoeba Histolytica Not Detected (NOT DETECT); Enteroaggregative E. coli-EAEC Not Detected (NOT DETECT); Enteropathogenic E. coli-EPEC Not Detected (NOT DETECT); Enterotoxigenic E. coli-ETEC Not Detected (NOT DETECT); Giardia Lamblia Not Detected (NOT DETECT); Norovirus GI/GII Not Detected (NOT DETECT); Plesiomonas Shigelloides Not Detected (NOT DETECT); Rotavirus A Not Detected (NOT DETECT); Salmonella Sp Not Detected (NOT DETECT); Sapovirus Not Detected (NOT DETECT); Shiga Toxin-prod E. coli-STEC Not Detected (NOT DETECT); Shigella/Enteroin E. coli-EIEC Not Detected (NOT DETECT); Vibrio Cholerae Not Detected (NOT DETECT); Vibrio Sp Not Detected (NOT DETECT); Yersinia Enterocolitica Not Detected (NOT DETECT)
[2024-09-17] MEDS ORDERED: NS 1,000 ML IV SCH ×2 (02:00→11:10)
[2024-09-17] MEDS ORDERED: FLU VACC TS2024-25(6MOS UP)/PF 45 MCG/0.5 ML SYRINGE IM ONE (02:00)
[2024-09-17 03:44] VITALS: BP 115/66
[2024-09-17] MEDS ORDERED: SUMAtriptan succinate 50 MG Tab PO SCH (03:50)
[2024-09-17] MEDS ORDERED: Ondansetron 4 MG SoluTab MM PRN (03:50)
[2024-09-17] MEDS ORDERED: DiphenhydrAMINE HCl 50 MG Cap PO PRN (03:50)
[2024-09-17] MEDS ORDERED: Ipratropium/Albuterol SulF 2.5-0.5MG/3 ML Amp INH PRN (03:55)
[2024-09-17] MEDS ORDERED: OxyCODONE HCL 5 MG TAB PO PRN (03:55)
[2024-09-17] MEDS ORDERED: Loratadine 10 MG Tab PO PRN (04:30)
[2024-09-17] MEDS ORDERED: Albuterol HFA200 ACT/6.7 GM INH INH PRN (04:30)
--- NOTE | 2024-09-17 04:36 | NUR ---
LENNIE IS A NEW ADMIT FROM THE ED. AXO X 4 AND SBA FROM [facility] TO BED. ON 1L O2 NC AND HOME DOSE. DENIES CHEST PAIN, SOB, AND N/V. TELEMETRY PLACED NSR 80'S. REPORTED ABDOMEN DISCOMFORT. PIV INTACT. NS STARTED @ 125 mL/HR. LOOSE BM X ONE ON ADMIT. ORIENTED TO ROOM AND CALL LIGHT SYSTEM. WANTING TO SLEEP AFTER ASSESSMENT. WCTM.
[2024-09-17] MEDS ORDERED: Vancomycin HCl 125 MG Cap PO SCH ×2 (06:00)
[2024-09-17 07:28] VITALS: BP 105/57
[2024-09-17] MEDS ORDERED: Omeprazole 20 MG CapCR PO SCH (07:30)
--- NOTE | 2024-09-17 07:35 | NUR ---
ASSUMED CARE OF PATIENT. AWAKE, LYING ON BACK WITH HOB ELEVATED. PT MENTATION SEEMINGLY ALTERED; DID NOT ANSWER WHEN THIS RN INTRODUCED SELF NOR DID SHE RESPOND WHEN ASKED IF SHE NEEDED ANYTHING.
[2024-09-17] MEDS ORDERED: oxyBUTYnin chloride 5 MG TAB PO SCH (09:00)
[2024-09-17] MEDS ORDERED: Fluticasone 0.05% Nasal Spray SCH (09:00)
[2024-09-17] MEDS ORDERED: PARoxetine HCl 20 MG Tab PO SCH (09:00)
[2024-09-17] MEDS ORDERED: Gabapentin 300 MG Cap PO SCH (09:00)
[2024-09-17] MEDS ORDERED: Lactobacil 2-S.Thermo-Bifido 1 1 Cap PO SCH (09:00)
[2024-09-17] MEDS ORDERED: Enoxaparin 40 MG/0.4 ML SYR SC SCH (09:00)
[2024-09-17] MEDS ORDERED: Baclofen 10 MG Tab PO SCH (09:00)
[2024-09-17] MEDS ORDERED: Ondansetron HCl 2 MG / ML 2ML Vial IV PRN (10:55)
--- NOTE | 2024-09-17 11:02 | NUR ---
SPOKE WITH PATIENT'S MOTHER, EDGAR, WITH WHOM PATIENT LIVES: STATES EDGAR HAS BEEN STRUGGLING WITH RECURRENT PNEUMONIA. SHE REPORTS [employer] LEADS A VERY SEDENTARY LIFESTYLE AND RARELY LEAVE HER BED, OTHER THAN TO USE THE BATHROOM, WHEN SHE IS HOME. REPORTEDLY IN A CYCLE OF "LET'S HERSELF GET REALLY SICK, THEN GOES TO THE HOSPITAL, GETS REALLY SICK, GOES TO THE HOSPITAL, ETC." CONCERNED SHE WON'T BE ABLE TO ALLOW HER TO LIVE THERE AND CARE FOR HER MUCH LONGER.
[2024-09-17] MEDS ORDERED: Mometasone/Formoterol MDI 200/5 mcg 13 GM INH SCH (11:15)
[2024-09-17 15:25] VITALS: BP 108/63
--- NOTE | 2024-09-17 17:51 | NUR ---
END OF SHIFT SUMMARY: A&Ox4. PLEASANT AND COOPERATIVE WITH CARE. CALLS APPROPRIATELY AND IS ABLE TO ADVOCATE NEEDS EFFECTIVELY. CONTINENT OF BOWEL AND BLADDER. SBA c FWW TO BSC. CONTINUES c WATERY STOOL. NOTED TO HAVE DEEP, BARKING, PERSISTENT COUGH. RT PROVIDING NEBULIZER AND INHALER TREATMENTS. MEDICATED PRN ABD PAIN AND NAUSEA. TELE SINUS IN 60s. MAINTAINING SPO2 >88% ON 1LPM/NC; 1-2LPM/NC @ BASELINE. BED IN LOWEST POSITION, CALL LIGHT WITHIN REACH, ALL NEEDS MET. REPORT TO ONCOMING NURSE.
[2024-09-17 20:28] VITALS: BP 119/71
--- NOTE | 2024-09-18 04:06 | NUR ---
SHIFT SUMMARY PATIENT HAD NO ACUTE CHANGES. AXOX 4 AND ONE ASSIST TO BSC. PIV INTACT. NS INFUSING @ 100 mL/HR. DENIES CHEST PAIN, SOB, AND N/V. ON 1L O2 NC. VSS/AFEBRILE. SLEPT ON/OFF WITH DEEP COUGH AT TIMES. RT IN FOR BREATHING TX. TELE MONITOR NSR 82. CALL LIGHT IN REACH. BED IN LOWEST POSITION. WILL CONTINUE TO MONITOR UNTIL DAY SHIFT NURSE ASSUMES CARE.
[2024-09-18 04:53] VITALS: BP 107/67
[2024-09-18 06:24] LABS: BASOPHILS ABSOLUTE AUTO 0.05 K/mm3 (0.00-0.23); BASOPHILS PERCENT AUTO 1 % (0-2); EOSINOPHILS ABSOLUTE AUTO 0.14 K/mm3 (0.00-0.68); EOSINOPHILS PERCENT AUTO 1 % (0-6); Hematocrit 33.2 % (33.0-51.0); Hemoglobin 10.3 g/dL (11.5-16.0); IMMATURE GRAN ABSOLUTE AUTO 0.08 K/mm3 (0.00-0.10); IMMATURE GRAN PERCENT AUTO 1 % (0-1); LYMPHOCYTES ABSOLUTE AUTO 2.59 K/mm3 (0.84-5.20); LYMPHOCYTES PERCENT AUTO 26 % (21-46); MONOCYTES ABSOLUTE AUTO 0.71 K/mm3 (0.16-1.47); MONOCYTES PERCENT AUTO 7 % (4-13); Mean Corpuscular HGB 24.6 pg (26.0-34.0); Mean Corpuscular Volume 79 fL (80-100); Mean Platelet Volume 8.8 fL (9.1-12.4); NEUTROPHILS ABSOLUTE AUTO 6.23 K/mm3 (1.96-9.15); NEUTROPHILS PERCENT AUTO 64 % (41-73); Platelet Count 432 K/mm3 (150-400); RDW Coefficient Variation 15.6 % (11.7-14.2); RDW Standard Deviation 44.8 fL (35.1-46.3); Red Blood Cell Count 4.18 M/mm3 (3.80-5.20)
[2024-09-18 06:44] LABS: Albumin, Blood 2.3 g/dL (3.4-5.0); Albumin/Globulin Ratio 0.8 (0.8-1.8); Bilirubin, Total 0.2 mg/dL (0.1-1.0); Bun/Creatinine Ratio 7.4 (12.0-20.0); C-REACTIVE PROTEIN, EXT RANGE 8.05 mg/dL (0.000-0.300); Calcium, Blood 8.8 mg/dL (8.5-10.1); Creatinine, Blood 0.68 mg/dL (0.40-1.00); Magnesium, Blood 2.1 mg/dL (1.6-2.4); Phosphorus, Blood 4.4 mg/dL (2.5-4.9); Potassium, Blood 3.3 mmol/L (3.5-5.5); Total Protein, Blood 5.3 g/dL (6.4-8.2)
[2024-09-18 07:24] VITALS: BP 105/82
[2024-09-18] MEDS ORDERED: Potassium Chloride 10 Meq Tablet SA PO SCH (11:05)
[2024-09-18 16:56] VITALS: BP 120/67
--- NOTE | 2024-09-18 17:01 | NUR ---
PT PLEASANT TODAY. DR DID D/C IVF AND TELE TODAY. DR OKAYED NO IV ORDER AT THIS TIME. PT LUNGS WERE CLEAR THIS AM AFTER A GOOD COUGH. CONTINUES TO COUGH ON OCCATION TODAY. IMPROVED FROM YESTERDAY. NO NEW CONCERNS NOTED TODAY. VSS. BED IN LOW POSITION, CALL LITE IN REACH, CALLS APPROP
[2024-09-18 19:36] VITALS: BP 116/78
--- NOTE | 2024-09-19 04:27 | NUR ---
SHIFT SUMMARY PATIENT HAD NO ACUTE CHANGES. AXOX 4 AND ONE ASSIST TO BSC. ON 1L O2 NC BASELINE. NO IV ACCESS. DENIES CHEST PAIN, SOB, AND N/V. VSS/AFEBRILE. CALL LIGHT IN REACH. BED IN LOWEST POSITION. WILL CONTINUE TO MONITOR UNTIL DAY SHIFT NURSE ASSUMES CARE.
[2024-09-19 05:15] LABS: BASOPHILS ABSOLUTE AUTO 0.07 K/mm3 (0.00-0.23); BASOPHILS PERCENT AUTO 1 % (0-2); EOSINOPHILS ABSOLUTE AUTO 0.18 K/mm3 (0.00-0.68); EOSINOPHILS PERCENT AUTO 2 % (0-6); Hematocrit 34.7 % (33.0-51.0); Hemoglobin 10.6 g/dL (11.5-16.0); IMMATURE GRAN ABSOLUTE AUTO 0.07 K/mm3 (0.00-0.10); IMMATURE GRAN PERCENT AUTO 1 % (0-1); LYMPHOCYTES PERCENT AUTO 28 % (21-46); MONOCYTES ABSOLUTE AUTO 0.67 K/mm3 (0.16-1.47); MONOCYTES PERCENT AUTO 7 % (4-13); Mean Corpuscular HGB 24.2 pg (26.0-34.0); Mean Corpuscular HGB Conc 30.5 g/dL (31.5-36.5); Mean Corpuscular Volume 79 fL (80-100); Mean Platelet Volume 8.6 fL (9.1-12.4); NEUTROPHILS ABSOLUTE AUTO 5.79 K/mm3 (1.96-9.15); NEUTROPHILS PERCENT AUTO 62 % (41-73); Platelet Count 454 K/mm3 (150-400); RDW Coefficient Variation 15.5 % (11.7-14.2); RDW Standard Deviation 44.9 fL (35.1-46.3); Red Blood Cell Count 4.38 M/mm3 (3.80-5.20); White Blood Cell Count 9.38 K/mm3 (4.00-11.30)
[2024-09-19 05:33] LABS: Albumin, Blood 2.5 g/dL (3.4-5.0); Albumin/Globulin Ratio 0.8 (0.8-1.8); Bilirubin, Total 0.2 mg/dL (0.1-1.0); Bun/Creatinine Ratio 7.5 (12.0-20.0); Calcium, Blood 9.2 mg/dL (8.5-10.1); Creatinine, Blood 0.67 mg/dL (0.40-1.00); Globulin, Blood 3.2 g/dL (2.2-4.0); Potassium, Blood 3.8 mmol/L (3.5-5.5); Total Protein, Blood 5.7 g/dL (6.4-8.2)
[2024-09-19 05:54] VITALS: BP 110/75
[2024-09-19 07:54] VITALS: BP 122/67
[2024-09-19 14:43] VITALS: BP 112/64
--- NOTE | 2024-09-19 18:43 | NUR ---
SHIFT SUMMARY PT CONT LEVEL OF CARE WITH NO ACUTE CHANGES NOTED. PT REMAINS A&OX4 AND IS ASSIST X1 TO BSC. PT CONT TO HAVE SEVERAL LOOSE STOOLS THIS SHIFT. PT HAS VOICED C/O PAIN TO ABD AND L ARM THIS SHIFT AND MEDICATED PER EMAR WITH EFFECTIVENESS. PLAN IS FOR PT TO POSSIBLE DC TOMORROW IF STOOL HAVE SLOWN DOWN AND STARTED TO FORM UP.
[2024-09-19 19:57] VITALS: BP 116/86
[2024-09-20 04:43] VITALS: BP 121/69
[2024-09-20 04:54] LABS: BASOPHILS ABSOLUTE AUTO 0.08 K/mm3 (0.00-0.23); BASOPHILS PERCENT AUTO 1 % (0-2); EOSINOPHILS ABSOLUTE AUTO 0.29 K/mm3 (0.00-0.68); EOSINOPHILS PERCENT AUTO 3 % (0-6); Hematocrit 36.2 % (33.0-51.0); IMMATURE GRAN ABSOLUTE AUTO 0.12 K/mm3 (0.00-0.10); IMMATURE GRAN PERCENT AUTO 1 % (0-1); LYMPHOCYTES ABSOLUTE AUTO 2.85 K/mm3 (0.84-5.20); LYMPHOCYTES PERCENT AUTO 27 % (21-46); MONOCYTES ABSOLUTE AUTO 0.65 K/mm3 (0.16-1.47); MONOCYTES PERCENT AUTO 6 % (4-13); Mean Corpuscular HGB 24.1 pg (26.0-34.0); Mean Corpuscular HGB Conc 30.4 g/dL (31.5-36.5); Mean Corpuscular Volume 79 fL (80-100); Mean Platelet Volume 8.6 fL (9.1-12.4); NEUTROPHILS ABSOLUTE AUTO 6.71 K/mm3 (1.96-9.15); NEUTROPHILS PERCENT AUTO 63 % (41-73); Platelet Count 401 K/mm3 (150-400); RDW Coefficient Variation 15.6 % (11.7-14.2); RDW Standard Deviation 44.6 fL (35.1-46.3); Red Blood Cell Count 4.56 M/mm3 (3.80-5.20)
--- NOTE | 2024-09-20 04:56 | NUR ---
SHIFT SUMMARY 54 YR F ADMITTED ON 09/17/24. FULL CODE. NO ACUTE CHANGES THIS SHIFT. PT HAS ONLY HAD 1 BM THIS SHIFT AND IT WAS FORMED, NOT RUNNY. SHE IS PLEASANT AND COOPERATIVE W/ CARE. MEDICATED TWICE THIS SHIFT FOR PAIN. SHE APPEARS TO HAVE RESTED COMFORTABLY THROUGHOUT THE NIGHT. SHE IS A&O X 4 AND ABLE TO MAKE HER NEEDS KNOWN. WILL CONTINUE TO MONITOR. BED IN LOW POSITION AND CALL LIGHT IN REACH.
[2024-09-20 05:34] LABS: Albumin, Blood 2.7 g/dL (3.4-5.0); Albumin/Globulin Ratio 0.8 (0.8-1.8); Bilirubin, Total 0.2 mg/dL (0.1-1.0); Bun/Creatinine Ratio 8.8 (12.0-20.0); Calcium, Blood 9.7 mg/dL (8.5-10.1); Creatinine, Blood 0.79 mg/dL (0.40-1.00); Globulin, Blood 3.4 g/dL (2.2-4.0); Potassium, Blood 4.6 mmol/L (3.5-5.5); Total Protein, Blood 6.1 g/dL (6.4-8.2)
[2024-09-20 07:21] VITALS: BP 125/74
[2024-09-20] MEDS ORDERED: VANCOCIN HCL125 MG PO (12:29)
--- NOTE | 2024-09-20 12:51 | NUR ---
DISCHARGE NOTE PT DISCHARGED HOME AT 1240. PT PROVIDED W/ VERBAL AND WRITTEN INSTRUCTIONS AND REPORTED UNDERSTANDING. PT A&OX4, VSS, ON 1L O2 NC, TOLERATING PO, VOIDING, AND PAIN MANAGED. HARD SCRIPT GIVEN AND BELONGINGS RETURNED. PT ESCOURTED TO ELEVATOR BY THIS RN.
== END 2024-09-20 12:55 | disposition home or self-care (01) | DRG 872 ==
LOC: ER 10:47 → ERHOLD 09-17 03:05 → MEDS 09-17 03:05
PROVIDERS: Emergency Medicine; Family Medicine; Hospitalist; ADMIT Internal Medicine
DX: A41.9 Sepsis, unspecified organism (principal); A04.72 Enterocolitis due to Clostridium difficile, not specified as recurrent; D80.2 Selective deficiency of immunoglobulin A [IgA]; J96.11 Chronic respiratory failure with hypoxia; J44.1 Chronic obstructive pulmonary disease with (acute) exacerbation; J21.9 Acute bronchiolitis, unspecified; J44.0 Chronic obstructive pulmonary disease with (acute) lower respiratory infection; F32.9 Major depressive disorder, single episode, unspecified; E66.9 Obesity, unspecified; D63.8 Anemia in other chronic diseases classified elsewhere; E87.6 Hypokalemia; F41.1 Generalized anxiety disorder; Z79.899 Other long term (current) drug therapy; Z79.2 Long term (current) use of antibiotics; Z79.51 Long term (current) use of inhaled steroids; Z79.891 Long term (current) use of opiate analgesic; Z88.2 Allergy status to sulfonamides; Z88.8 Allergy status to other drugs, medicaments and biological substances; Z99.81 Dependence on supplemental oxygen; Z87.19 Personal history of other diseases of the digestive system; Z98.890 Other specified postprocedural states; Z87.891 Personal history of nicotine dependence; Z85.038 Personal history of other malignant neoplasm of large intestine; Z68.28 Body mass index [BMI] 28.0-28.9, adult; Z87.01 Personal history of pneumonia (recurrent); Z28.21 Immunization not carried out because of patient refusal
CPT/HCPCS: 36415; 71045; 74177; 80053; 81003; 83690; 83735; 84100; 84145; 85025; 86140; 87324; 87428-QW; 87507; 93005; 93010; 94640; 94664; 94760; 94762; 96374-59; 96375; 99285-25; A9270; J1650; J2405; J2765; J7030; Q9967

== ENCOUNTER 2024-09-27 18:01 | Inpatient (IN) | payer OTHER ==
[~2024-09-27] VITALS: Ht 152.4 cm; Wt 63.1 kg
[~2024-09-27 18:01] MED LIST changes: +VANCOCIN HCL125 MG PO
[2024-09-27 18:43] LABS: CORONAVIRUS COVID-19 AG Negative (NEGATIVE); INFLUENZA A AG Negative (NEGATIVE); INFLUENZA B AG Negative (NEGATIVE)
[2024-09-27 18:49] LABS: Hematocrit 29.7 % (33.0-51.0); Mean Corpuscular HGB 25.1 pg (26.0-34.0); Mean Corpuscular HGB Conc 33.7 g/dL (31.5-36.5); Mean Corpuscular Volume 75 fL (80-100); Mean Platelet Volume 9.4 fL (9.1-12.4); Platelet Count 521 K/mm3 (150-400); RDW Coefficient Variation 14.9 % (11.7-14.2); RDW Standard Deviation 40.5 fL (35.1-46.3); Red Blood Cell Count 3.98 M/mm3 (3.80-5.20); White Blood Cell Count 46.71 K/mm3 (4.00-11.30)
[2024-09-27 19:08] LABS: BAND PERCENT MAN 4 % (0-8); BASOPHILS PERCENT MAN 0 % (0-2); EOSINOPHILS PERCENT MAN 0 % (0-6); TOTAL CELLS COUNTED 100
[2024-09-27 19:09] LABS: LYMPHOCYTES ABSOLUTE MAN 2.33 K/mm3 (0.84-5.20); LYMPHOCYTES PERCENT MAN 5 % (21-46); MONOCYTES ABSOLUTE MAN 1.86 K/mm3 (0.16-1.47); MONOCYTES PERCENT MAN 4 % (4-13); SEG NEUTROPHILS PERCENT MAN 87 % (41-73)
[2024-09-27 19:33] LABS: Albumin, Blood 2.1 g/dL (3.4-5.0); Albumin/Globulin Ratio 0.5 (0.8-1.8); Bilirubin, Total 0.4 mg/dL (0.1-1.0); Bun/Creatinine Ratio 37.4 (12.0-20.0); Calcium, Blood 9.5 mg/dL (8.5-10.1); Creatinine, Blood 0.78 mg/dL (0.40-1.00); Globulin, Blood 4.4 g/dL (2.2-4.0); Potassium, Blood 3.5 mmol/L (3.5-5.5); Total Protein, Blood 6.5 g/dL (6.4-8.2)
[2024-09-27] MEDS ORDERED: Vancomycin HCl 125 MG Cap PO ONE (20:00)
[2024-09-27] MEDS ORDERED: Ondansetron HCl 2 MG / ML 2ML Vial IV ONE (20:00)
[2024-09-27] MEDS ORDERED: Morphine Sulfate 4 MG/1 ML Injection IV ONE (20:00)
[2024-09-27] MEDS ORDERED: NS 1,000 ML IV SCH ×2 (20:00→21:35)
[2024-09-27] MEDS ORDERED: Cefepime HCl 2,000 MG in NS 100 ML IV ONE (20:30)
[2024-09-27] MEDS ORDERED: Vancomycin HCL 1,500 MG in NS 250 ML IV ONE (20:40)
[2024-09-27] MEDS ORDERED: Albuterol 2.5 MG/3 ML VIAL INH PRN (21:35)
[2024-09-27] MEDS ORDERED: FLU VACC TS2024-25(6MOS UP)/PF 45 MCG/0.5 ML SYRINGE IM ONE (21:35)
[2024-09-27 21:38] LABS: Source, Urine Clean Catch
[2024-09-27] MEDS ORDERED: OxyCODONE HCL 5 MG TAB PO PRN (21:40)
[2024-09-27] MEDS ORDERED: Ondansetron HCl 2 MG / ML 2ML Vial IV PRN (21:40)
[2024-09-27 21:44] LABS: Appearance, Urine Clear (Clear); Bilirubin, Urine Neg (Neg); Blood, Urine 1+ (Neg); Glucose Qualitative, Urine Neg (Neg); Ketones, Urine Neg (Neg); Leukocyte Esterase, Urine 2+ (Neg); Nitrite, Urine Neg (Neg); Protein, Urine 1+ (Neg); Urobilinogen, Urine NORM (Normal)
[2024-09-27] MEDS ORDERED: NS 1,000 ML IV ONE (22:00)
[2024-09-27 22:09] LABS: Color, Urine Pale Yellow (P-Yellow)
[2024-09-27 22:10] LABS: Bacteria Mod /hpf; Red Blood Cells, Urine 0-2 /hpf (0-2); Squamous Epithelial Cells Few /hpf (Few)
[2024-09-27] MEDS ORDERED: Azithromycin 500 MG in NS 250 ML IV SCH (22:37)
[2024-09-27] MEDS ORDERED: CefTRIAXone Sodium 1,000 MG in NS 100 ML IV SCH (22:38)
[2024-09-27 23:08] LABS: Bicarbonate Venous 22.3 mmol/L (24.0-30.0); PCO2 Venous 45.7 mmHg (38-42); pH Blood Venous 7.33 (7.34-7.37)
[2024-09-27 23:30] VITALS: BP 98/64
--- NOTE | 2024-09-27 23:52 | NUR ---
ADMIT NOTE HANDOFF RECEIVED FROM MANUFACTURING MILLWRIGHT JOE. PT ARRIVED TO FLOOR. PERSONAL POSSESSIONS WITH PATIENT. PATIENT ORIENTED TO UNIT. CALL BUTTON WITHIN REACH. SON AT BEDSIDE. IV ANTIB RX AND FLUIDS INFUSING
[2024-09-28] MEDS ORDERED: Vancomycin HCl 125 MG Cap PO SCH
--- NOTE | 2024-09-28 04:21 | NUR ---
SHIFT SUMMARY ADMITTED THIS SHIFT FOR RLL PNEUMONIA/SEPSIS. UTI+ WELL. FULL CODE. IV FLUID INFUSING. ANTIB ARE SCHEDULED. ISOLATION PRECAUTIONS FOR C. DIFF+. MRSA NASAL SWABS SENT TO LAB. 1 ASSIST W/BRP DUE TO LINES AND TUBES. ON 2 LPM O2 AT BASELINE. SHE IS A&O X4. HER SON IS AT BEDSIDE. REGULAR DIET.
[2024-09-28 04:43] VITALS: BP 93/57
[2024-09-28 04:48] LABS: BASOPHILS ABSOLUTE AUTO 0.07 K/mm3 (0.00-0.23); BASOPHILS PERCENT AUTO 0 % (0-2); EOSINOPHILS ABSOLUTE AUTO 0.02 K/mm3 (0.00-0.68); EOSINOPHILS PERCENT AUTO 0 % (0-6); Hematocrit 26.7 % (33.0-51.0); IMMATURE GRAN ABSOLUTE AUTO 0.82 K/mm3 (0.00-0.10); IMMATURE GRAN PERCENT AUTO 3 % (0-1); LYMPHOCYTES ABSOLUTE AUTO 1.41 K/mm3 (0.84-5.20); LYMPHOCYTES PERCENT AUTO 5 % (21-46); MONOCYTES ABSOLUTE AUTO 0.77 K/mm3 (0.16-1.47); MONOCYTES PERCENT AUTO 3 % (4-13); Mean Corpuscular HGB 24.9 pg (26.0-34.0); Mean Corpuscular HGB Conc 33.7 g/dL (31.5-36.5); Mean Corpuscular Volume 74 fL (80-100); NEUTROPHILS ABSOLUTE AUTO 28.26 K/mm3 (1.96-9.15); NEUTROPHILS PERCENT AUTO 90 % (41-73); Platelet Count 410 K/mm3 (150-400); RDW Coefficient Variation 15.2 % (11.7-14.2); RDW Standard Deviation 40.5 fL (35.1-46.3); Red Blood Cell Count 3.62 M/mm3 (3.80-5.20); White Blood Cell Count 31.35 K/mm3 (4.00-11.30)
[2024-09-28 05:03] LABS: Magnesium, Blood 2.1 mg/dL (1.6-2.4)
[2024-09-28 05:04] LABS: Albumin, Blood 1.8 g/dL (3.4-5.0); Albumin/Globulin Ratio 0.5 (0.8-1.8); Bilirubin, Total 0.3 mg/dL (0.1-1.0); Bun/Creatinine Ratio 28.1 (12.0-20.0); Calcium, Blood 8.7 mg/dL (8.5-10.1); Creatinine, Blood 0.64 mg/dL (0.40-1.00); Globulin, Blood 3.7 g/dL (2.2-4.0); Potassium, Blood 3.5 mmol/L (3.5-5.5); Total Protein, Blood 5.5 g/dL (6.4-8.2)
[2024-09-28 07:10] VITALS: BP 90/60
[2024-09-28] MEDS ORDERED: Heparin Sodium 5000 Units/ML 1ML MDV SC SCH (09:00)
[2024-09-28] MEDS ORDERED: oxyBUTYnin chloride 5 MG TAB PO SCH (09:00)
[2024-09-28] MEDS ORDERED: PARoxetine HCl 20 MG Tab PO SCH (09:00)
[2024-09-28] MEDS ORDERED: Gabapentin 300 MG Cap PO SCH (09:00)
[2024-09-28 16:16] LABS: Acinetobacter baumannii DNA Not Detected copy/mL (NOT DETECT); Enterobacter cloacae DNA Not Detected copy/mL (NOT DETECT); Escherichia coli DNA Not Detected copy/mL (NOT DETECT); Haemophilus influenzae DNA Not Detected copy/mL (NOT DETECT); Klebsiella aerogenes DNA Not Detected copy/mL (NOT DETECT)
[2024-09-28 16:17] LABS: Klebsiella oxytoca DNA Not Detected copy/mL (NOT DETECT); Klebsiella pneumoniae DNA Not Detected copy/mL (NOT DETECT); Moraxella catarrhalis DNA Not Detected copy/mL (NOT DETECT); Proteus sp DNA Not Detected copy/mL (NOT DETECT); Pseudomonas aeruginosa DNA Detected Bin >=10^7 copy/mL (NOT DETECT); Serratia marcescens DNA Not Detected copy/mL (NOT DETECT); Staphylococcus aureus DNA Not Detected copy/mL (NOT DETECT); Streptococcus agalactiae DNA Not Detected copy/mL (NOT DETECT); Streptococcus pneumoniae DNA Detected Bin >=10^7 copy/mL (NOT DETECT); Streptococcus pyogenes DNA Not Detected copy/mL (NOT DETECT)
[2024-09-28 16:18] LABS: Adenovirus DNA Not Detected (NOT DETECT); Chlamydia pneumonia Not Detected (NOT DETECT); Human Coronavirus RNA Not Detected (NOT DETECT); Human Metapneumovirus RNA Not Detected (NOT DETECT); Influenza virus A RNA Not Detected (NOT DETECT); Influenza virus B RNA Not Detected (NOT DETECT); Legionella pneumophila Not Detected (NOT DETECT); Mycoplasma pneumoniae Not Detected (NOT DETECT); Parainfluenza virus RNA Not Detected (NOT DETECT); Respiratory syncytial Vir RNA Not Detected (NOT DETECT); Rhinovirus+Enterovirus RNA Detected (NOT DETECT)
[2024-09-28] MEDS ORDERED: Vancomycin HCL 1,500 MG in NS 250 ML IV SCH (17:00)
[2024-09-28 19:37] VITALS: BP 102/63
--- NOTE | 2024-09-28 19:42 | NUR ---
SHIFT SUMMARY PATIENT ALERT AND ABLE TO MAKE NEEDS KNOWN. PATIENT ABLE TO AMBULATE IN ROOM WITH STAND BY ASSIST. PATIENT ABLE TO BE CONTINENT OF BOWEL. CONTINUES ON ORAL VANCO AND NOW ON IV VANCO FOR PNEUMONIA. CLARIFIED WITH PHARMACY ABOUT ORAL AND IV. SPUTUM SENT. PATIENT TENDS TO TAKE O2 OFF WHEN AMBULATING. PROVIDED EDUCATION ON THE IMPORTANCE OF WEARING O2 WITH ACTIVITY.
[2024-09-28] MEDS ORDERED: Lactobacil 2-S.Thermo-Bifido 1 1 Cap PO SCH (21:00)
[2024-09-29 02:07] VITALS: BP 106/70
--- NOTE | 2024-09-29 03:02 | NUR ---
KETTLE CLEANER SUMMARY VSS. ALERT AND ORIENTED. IVF AND ANTIBIOTICS INFUSING PER MD HOOD. PO VANCO FOR C-DIFF WELL. REMAINS ON CONTACT PRECAUTIONS FOR C-DIFF, BUT WAS INCREASED TO DRPOLET PRECAUTIONS WHEN POSITIVE RESULTS IN OTHER LABS NOTED. UP AD KULWANT WITH ASSIST. CONTINENT. HAS BEEN RESTING QUIETLY WITH OCCASIONAL INTERRUPTIONS. O2 AT 2L/MIN PER NC. ABLE TO REPOSITION SELF IN BED WITHOUT ASSIST. CALL LIGHT IN REACH, RAILS UP 2 AND BED IN LOW POSITION FOR SAFETY. WILL CONTINUE TO MONITOR
[2024-09-29 05:33] LABS: BASOPHILS ABSOLUTE AUTO 0.06 K/mm3 (0.00-0.23); BASOPHILS PERCENT AUTO 1 % (0-2); EOSINOPHILS ABSOLUTE AUTO 0.08 K/mm3 (0.00-0.68); EOSINOPHILS PERCENT AUTO 1 % (0-6); Hematocrit 28.3 % (33.0-51.0); Hemoglobin 8.8 g/dL (11.5-16.0); IMMATURE GRAN ABSOLUTE AUTO 0.11 K/mm3 (0.00-0.10); IMMATURE GRAN PERCENT AUTO 1 % (0-1); LYMPHOCYTES ABSOLUTE AUTO 1.58 K/mm3 (0.84-5.20); LYMPHOCYTES PERCENT AUTO 14 % (21-46); MONOCYTES PERCENT AUTO 4 % (4-13); Mean Corpuscular HGB 24.3 pg (26.0-34.0); Mean Corpuscular HGB Conc 31.1 g/dL (31.5-36.5); Mean Corpuscular Volume 78 fL (80-100); Mean Platelet Volume 9.1 fL (9.1-12.4); NEUTROPHILS ABSOLUTE AUTO 9.13 K/mm3 (1.96-9.15); NEUTROPHILS PERCENT AUTO 80 % (41-73); Platelet Count 442 K/mm3 (150-400); RDW Coefficient Variation 15.6 % (11.7-14.2); RDW Standard Deviation 44.8 fL (35.1-46.3); Red Blood Cell Count 3.62 M/mm3 (3.80-5.20); White Blood Cell Count 11.36 K/mm3 (4.00-11.30)
[2024-09-29] MEDS ORDERED: Vancomycin HCL 1,000 MG in NS 250 ML IV SCH (06:00)
[2024-09-29 06:03] LABS: Calcium, Blood 8.3 mg/dL (8.5-10.1); Creatinine, Blood 0.6 mg/dL (0.40-1.00); Potassium, Blood 3.3 mmol/L (3.5-5.5)
[2024-09-29 08:08] VITALS: BP 115/66
[2024-09-29] MEDS ORDERED: Potassium Chloride 20 MEQ TabCR PO ONE (10:00)
[2024-09-29] MEDS ORDERED: Piperacillin/Tazobactam Sod 3.375 GM in NS 100 ML IV SCH (11:00)
[2024-09-29 16:26] VITALS: BP 136/75
--- NOTE | 2024-09-29 17:52 | NUR ---
Shift summary A&O x4. Patient up indepently with cane to use bathroom. Complaints of abdominal pain. Received 2 doses of PRN Oxycodone. Patient reports more diarrhea today. Receiving oral Vanco to treat C-DIFF. Patient pleasant and cooeprative with care. Uses call light appropriately.
[2024-09-29] MEDS ORDERED: NS 250 ML IV PRN (20:30)
[2024-09-29 22:32] VITALS: BP 120/66
[2024-09-30] VITALS (12 sets, daily range): BP systolic 109–143; BP diastolic 65–124
--- NOTE | 2024-09-30 03:29 | NUR ---
SHIFT SUMMARY NO ACUTE EVENTS DURING THIS SHIFT. ABX'S ADMINISTERED ORDERED. PRN OXYCODONE ADMINISTERED FOR C/O 6/10 LLQ AND RLQ PAIN. O2 @2LITERS VIA NASAL CANNULA, SAT'S >95%. NO BM DURING THIS SHIFT PER PT REPORT. PT AMBULATES TO THE RESTROOM INDEPENDENTLY USING CANE (HER BASELINE). PT IS A/O X4, ABLE TO MAKE HER NEEDS KNOWN AND COOPERATIVE WITH CARE. BED AT THE LOWEST POSITION, CALL LIGHT W/I REACH.
[2024-09-30 04:57] LABS: BASOPHILS ABSOLUTE AUTO 0.07 K/mm3 (0.00-0.23); BASOPHILS PERCENT AUTO 1 % (0-2); EOSINOPHILS ABSOLUTE AUTO 0.12 K/mm3 (0.00-0.68); EOSINOPHILS PERCENT AUTO 1 % (0-6); Hematocrit 29.5 % (33.0-51.0); IMMATURE GRAN PERCENT AUTO 1 % (0-1); LYMPHOCYTES ABSOLUTE AUTO 1.49 K/mm3 (0.84-5.20); LYMPHOCYTES PERCENT AUTO 18 % (21-46); MONOCYTES ABSOLUTE AUTO 0.59 K/mm3 (0.16-1.47); MONOCYTES PERCENT AUTO 7 % (4-13); Mean Corpuscular HGB 23.9 pg (26.0-34.0); Mean Corpuscular HGB Conc 30.5 g/dL (31.5-36.5); Mean Corpuscular Volume 78 fL (80-100); Mean Platelet Volume 8.8 fL (9.1-12.4); NEUTROPHILS PERCENT AUTO 72 % (41-73); Platelet Count 435 K/mm3 (150-400); RDW Coefficient Variation 15.4 % (11.7-14.2); RDW Standard Deviation 43.8 fL (35.1-46.3); Red Blood Cell Count 3.77 M/mm3 (3.80-5.20); White Blood Cell Count 8.47 K/mm3 (4.00-11.30)
[2024-09-30 05:28] LABS: Bun/Creatinine Ratio 5.5 (12.0-20.0); Calcium, Blood 8.9 mg/dL (8.5-10.1); Creatinine, Blood 0.73 mg/dL (0.40-1.00); Potassium, Blood 3.4 mmol/L (3.5-5.5)
[2024-09-30] MEDS ORDERED: Potassium Chloride 20 MEQ TabCR PO ONE (09:40)
[2024-09-30] MEDS ORDERED: IMMUN GLOB G(IGG)/PRO/IGA 0-50 100 ML IV SCH (12:55)
[2024-09-30] MEDS ORDERED: DiphenhydrAMINE HCl 50 MG/ML 1ML Vial IV PRN ×2 (12:55→16:25)
[2024-09-30] MEDS ORDERED: Morphine Sulfate 4 MG/1 ML Injection IV ONE (16:00)
[2024-09-30] MEDS ORDERED: Morphine Sulfate 4 MG/1 ML Injection IV PRN (16:00)
[2024-09-30] MEDS ORDERED: Famotidine 10 MG/ML 2ML Vial IV ONE (16:00)
[2024-09-30] MEDS ORDERED: MethylPREDNISolone Sod Succ 125 MG Vial IV ONE (16:00)
--- NOTE | 2024-09-30 17:02 | NUR ---
RAPID RESPONSE PT HAD IVIG INFUSING, AFTER 1 HR, PT CALLED RN COMPLAINING OF CHEST PAIN 10/10, AND SOB. VITALS STABLE WITH RR 20-24, AND HR 110-120. MD NOTIFIED ORDERS PLACED FOR EKG, TROP, AND MORPHINE. PT YELLING OUT IN PAIN AND GRABBING CHEST. RN CALLED RAPID RESPONSE. ONCE PT STABLE, SHE WAS TRANSFERRED TO PCU.
--- NOTE | 2024-09-30 17:48 | NUR ---
TX SUMMARY THE PT ARRIVED TO PCU 15 POST RAPID RESPONSE. PT CAME VIA W/C AND ON 2LNC. SHE TRANSERED TO THE BED 1P ASSIST W/ FWW. PT DENIES INCREASED SOB FROM HER BASELINE, AND DENIES ANY ANGINA OR CHEST PRESSURE. ON TELE SHE IS ST 100'S-110'S, BP STABLE. SHE IS ON 2L/NC W/ SP02 >93%. PT TO PCU 15 FOR CLOSER MONITORING POST ALLERGIC REACTION. SEE NOTES FOR UDPATES.
[2024-09-30] MEDS ORDERED: Famotidine 10 MG/ML 2ML Vial IV SCH (21:00)
--- NOTE | 2024-09-30 23:28 | NUR ---
ASSUMPTION OF CARE ASSUMED PT'S CARE AT 1900,PT SITTING UP IN BED.ON 2L OXYGEN VIA NC,OXYGEN SATURATION 96%.REPORT COMPLETED AT BEDSIDE,PLAN OF CARE REVIEWED WITH PT.PT DENIES PAIN,DENIES CHEST PAIN,REPORTS OCCASIONAL NONPRODUCTIVE COUGH.MYLENE SET UP FOR PT'S USE.CALL LIGHT AND PT'S ITEMS WITHIN REACH.WILL CONTINUE TO MONITOR.
[2024-10-01 00:06] VITALS: BP 119/77
[2024-10-01 04:19] LABS: Hematocrit 27.9 % (33.0-51.0); Hemoglobin 8.7 g/dL (11.5-16.0); Mean Corpuscular HGB Conc 31.2 g/dL (31.5-36.5); Mean Corpuscular Volume 77 fL (80-100); Mean Platelet Volume 9.1 fL (9.1-12.4); Platelet Count 399 K/mm3 (150-400); RDW Coefficient Variation 15.1 % (11.7-14.2); RDW Standard Deviation 42.1 fL (35.1-46.3); Red Blood Cell Count 3.63 M/mm3 (3.80-5.20); White Blood Cell Count 6.46 K/mm3 (4.00-11.30)
[2024-10-01 04:37] LABS: Bun/Creatinine Ratio 11.2 (12.0-20.0); Calcium, Blood 8.8 mg/dL (8.5-10.1); Creatinine, Blood 0.45 mg/dL (0.40-1.00); Potassium, Blood 4.1 mmol/L (3.5-5.5)
[2024-10-01 04:55] LABS: BAND PERCENT MAN 3 % (0-8); BASOPHILS PERCENT MAN 0 % (0-2); EOSINOPHILS PERCENT MAN 0 % (0-6); LYMPHOCYTES ABSOLUTE MAN 1.16 K/mm3 (0.84-5.20); LYMPHOCYTES PERCENT MAN 18 % (21-46); METAMYELOCYTE ABSOLUTE MAN 0.06 K/mm3 (0.00-0.00); METAMYELOCYTE PERCENT MAN 1 % (0-0); MONOCYTES ABSOLUTE MAN 0.06 K/mm3 (0.16-1.47); MONOCYTES PERCENT MAN 1 % (4-13); MYELOCYTE ABSOLUTE MAN 0.19 K/mm3 (0.00-0.00); MYELOCYTE PERCENT MAN 3 % (0-0); NEUTROPHILS ABSOLUTE MAN 4.97 K/mm3 (1.96-9.15); SEG NEUTROPHILS PERCENT MAN 74 % (41-73); TOTAL CELLS COUNTED 100
--- NOTE | 2024-10-01 06:31 | NUR ---
SHIFT SUMMARY PT WAS AWAKE MOST OF THE NIGHT,FELL ASLEEP AFTER 0230.PT CALLS APPROPRIATELY TO GO TO THE BATHROOM.PT AMBULATES WITH CANE AND IS A SBA.NO CHEST PAIN REPORTED OVERNIGHT,STILL COUGHING BUT NO PHLEGM.PT DENIES PAIN,DENIES NEEDS THIS MORNING.WILL REPORT TO INCOMING NURSE.CALL LIGHT AND PT'S ITEMS WITHIN REACH.
[2024-10-01 08:33] VITALS: BP 126/73
[2024-10-01] MEDS ORDERED: VANCOCIN HCL125 MG PO (13:23)
[2024-10-01] MEDS ORDERED: LACT PO (13:24)
[2024-10-01] MEDS ORDERED: CIPR500 PO (13:25)
[2024-10-01] MEDS ORDERED: DOXYCYCLINE HYC50 M1 PO (13:27)
--- NOTE | 2024-10-01 13:37 | NUR ---
DISCHARGE NOTE: PT ESCORTED TO MAIN ENTERANCE TO MEET CAB RIDE HOME BY BRITT. PT STATED UNDERSTANDING OF DISCHARGE INSTRUCTIONS. RIDE SET UP TO TAKE HER TO PHARMACY ON HER WAY HOME. SHE IS WEARING HER PERSONAL O2 AT TIME OF DISCHARGE. ZULEIMA POWERGLIDE REMOVED BEFORE PT LEFT. ALL QUESTIONS ANSWERED AT TIME OF DISCHARGE
== END 2024-10-01 13:44 | disposition home or self-care (01) | DRG 871 ==
LOC: ER 18:01 → MEDS 18:02 → ERHOLD 18:02 → MEDS 23:19 → PCU 09-30 16:17
PROVIDERS: Family Medicine; Nurse Practitioner Acute Care; Student in an Organized Health Care Education/Training Program; ADMIT Student in an Organized Health Care Education/Training Program
PROC: 3E03329 Introduction of Other Anti-infective into Peripheral Vein, Percutaneous Approach (ICD-10-PCS; principal; 2024-09-27)
PROC: 30233S1 Transfusion of Nonautologous Globulin into Peripheral Vein, Percutaneous Approach (ICD-10-PCS; 2024-09-30)
DX: A40.9 Streptococcal sepsis, unspecified (principal); J15.4 Pneumonia due to other streptococci; D80.2 Selective deficiency of immunoglobulin A [IgA]; A04.72 Enterocolitis due to Clostridium difficile, not specified as recurrent; E87.1 Hypo-osmolality and hyponatremia; D80.3 Selective deficiency of immunoglobulin G [IgG] subclasses; J96.11 Chronic respiratory failure with hypoxia; Z28.21 Immunization not carried out because of patient refusal; J44.9 Chronic obstructive pulmonary disease, unspecified; Z99.81 Dependence on supplemental oxygen; F41.9 Anxiety disorder, unspecified; F32.A Depression, unspecified; B97.89 Other viral agents as the cause of diseases classified elsewhere; J06.9 Acute upper respiratory infection, unspecified; F17.210 Nicotine dependence, cigarettes, uncomplicated; D50.9 Iron deficiency anemia, unspecified; K21.9 Gastro-esophageal reflux disease without esophagitis; G62.9 Polyneuropathy, unspecified; Z85.038 Personal history of other malignant neoplasm of large intestine; Z79.899 Other long term (current) drug therapy; Z88.2 Allergy status to sulfonamides; Z79.51 Long term (current) use of inhaled steroids
CPT/HCPCS: 0528U; 36415; 71045; 74177; 80048; 80053; 81001; 82803; 83605; 83690; 83735; 84145; 84484; 85025; 87040; 87070; 87077; 87086; 87186; 87205; 87428-QW; 87449; 93005; 93010; 93306; 94640; 94664; 94760; 94762; 96361; 96374-59; 96375; 99285-25; A9270; C1751; J0456; J0696; J1200; J1459; J1644; J2270; J2405; J2543; J2919; J3370; J7030; J7050; Q9967

== ENCOUNTER 2024-12-30 11:36 | Day surgery (SDC) | payer OTHER ==
[~2024-12-30] VITALS: Ht 152.4 cm; Wt 56.5 kg
[~2024-12-30 11:36] MED LIST changes: +CIPR500 PO; +DOXYCYCLINE HYC50 M1 PO; +LACT PO; +Lactated Ringer's 1,000 ML IV ONE
[2024-12-30] MEDS ORDERED: BACL10 PO (12:39)
[2024-12-30] MEDS ORDERED: IMITREX50 M2 PO (12:40)
[2024-12-30] MEDS ORDERED: TOPI15C (12:41)
[2024-12-30] MEDS ORDERED: Lactated Ringer's 1,000 ML IV ONE (13:35)
[2024-12-30] MEDS ORDERED: propofoL 50 ML IV ONE ×3 (13:47→15:05)
[2024-12-30] MEDS ORDERED: Benzocaine Oral Spray 0.5ML UD ONE (13:47)
[2024-12-30 15:50] VITALS: BP 116/70
== END 2024-12-30 15:44 | disposition home or self-care (01) ==
LOC: ORSCSDS 11:36
PROVIDERS: Internal Medicine Gastroenterology
PROC: 0DBM8ZX Excision of Descending Colon, Via Natural or Artificial Opening Endoscopic, Diagnostic (ICD-10-PCS; principal; 2024-12-30 14:00)
PROC: 0DB58ZX Excision of Esophagus, Via Natural or Artificial Opening Endoscopic, Diagnostic (ICD-10-PCS; principal; 2024-12-30 14:00)
PROC: 0DBK8ZX Excision of Ascending Colon, Via Natural or Artificial Opening Endoscopic, Diagnostic (ICD-10-PCS; principal; 2024-12-30 14:00)
PROC: 0DB98ZX Excision of Duodenum, Via Natural or Artificial Opening Endoscopic, Diagnostic (ICD-10-PCS; principal; 2024-12-30 14:00)
PROC: 0DBL8ZX Excision of Transverse Colon, Via Natural or Artificial Opening Endoscopic, Diagnostic (ICD-10-PCS; principal; 2024-12-30 14:00)
PROC: 0DB78ZX Excision of Stomach, Pylorus, Via Natural or Artificial Opening Endoscopic, Diagnostic (ICD-10-PCS; principal; 2024-12-30 14:00)
DX: K21.9 Gastro-esophageal reflux disease without esophagitis (principal); Z12.11 Encounter for screening for malignant neoplasm of colon; Z86.0100 Personal history of colon polyps, unspecified; Z85.038 Personal history of other malignant neoplasm of large intestine; R23.4 Changes in skin texture; D12.3 Benign neoplasm of transverse colon; D12.2 Benign neoplasm of ascending colon; D12.4 Benign neoplasm of descending colon; B37.81 Candidal esophagitis; K44.9 Diaphragmatic hernia without obstruction or gangrene; K57.30 Diverticulosis of large intestine without perforation or abscess without bleeding; K64.4 Residual hemorrhoidal skin tags; I10 Essential (primary) hypertension; J44.89 Other specified chronic obstructive pulmonary disease; G47.33 Obstructive sleep apnea (adult) (pediatric); F17.210 Nicotine dependence, cigarettes, uncomplicated; F32.A Depression, unspecified; Z79.899 Other long term (current) drug therapy
CPT/HCPCS: 88305; 88342; A9270; J2704; J7120

== ENCOUNTER 2025-01-06 15:10 | Inpatient (IN) | payer OTHER ==
[2025-01-06] VITALS (24 sets, daily range): BP systolic 44–156; BP diastolic 14–121
[~2025-01-06] VITALS: Ht 157.5 cm; Wt 62.7 kg
[~2025-01-06 15:10] MED LIST changes: -Lactated Ringer's 1,000 ML IV ONE
[2025-01-06 16:09] LABS: PCO2 Arterial 32.6 mmHg (35-45); PO2 Arterial 75.7 mmHg (80-100)
[2025-01-06 16:11] LABS: pH Blood Arterial 7.29 (7.35-7.45)
[2025-01-06 16:16] LABS: Calcium, Ionized (POC) 1.08 mmol/L (1.10-1.46); Chloride (POC) 99 mmol/L (98-108); Creatinine (POC) 3.5 mg/dL (0.6-1.0); Glucose (ISTAT POC) 86 mg/dL (70-99); Hemoglobin (POC) 14.6 g/dL (12.0-16.0); Potassium (POC) 3.6 mmol/L (3.5-5.5); Sodium (POC) 132 mmol/L (135-148); Total CO2 (POC) 17 mmol/L (21-32)
[2025-01-06 16:19] LABS: Hematocrit 40.2 % (33.0-51.0); Hemoglobin 12.7 g/dL (11.5-16.0); Mean Corpuscular HGB 26.3 pg (26.0-34.0); Mean Corpuscular HGB Conc 31.6 g/dL (31.5-36.5); Mean Corpuscular Volume 83 fL (80-100); Mean Platelet Volume 9.1 fL (9.1-12.4); Platelet Count 546 K/mm3 (150-400); RDW Coefficient Variation 15.9 % (11.7-14.2); Red Blood Cell Count 4.82 M/mm3 (3.80-5.20)
[2025-01-06 16:27] LABS: White Blood Cell Count 54.54 K/mm3 (4.00-11.30)
[2025-01-06 16:39] LABS: BAND PERCENT MAN 27 % (0-8); BASOPHILS ABSOLUTE MAN 0.54 K/mm3 (0.00-0.23); BASOPHILS PERCENT MAN 1 % (0-2); EOSINOPHILS PERCENT MAN 0 % (0-6); LYMPHOCYTES ABSOLUTE MAN 1.63 K/mm3 (0.84-5.20); LYMPHOCYTES PERCENT MAN 3 % (21-46); METAMYELOCYTE ABSOLUTE MAN 7.09 K/mm3 (0.00-0.00); METAMYELOCYTE PERCENT MAN 13 % (0-0); MONOCYTES ABSOLUTE MAN 0.54 K/mm3 (0.16-1.47); MONOCYTES PERCENT MAN 1 % (4-13); MYELOCYTE ABSOLUTE MAN 0.54 K/mm3 (0.00-0.00); MYELOCYTE PERCENT MAN 1 % (0-0); NEUTROPHILS ABSOLUTE MAN 44.17 K/mm3 (1.96-9.15); SEG NEUTROPHILS PERCENT MAN 54 % (41-73); TOTAL CELLS COUNTED 100
[2025-01-06 16:50] LABS: Albumin, Blood 2.8 g/dL (3.4-5.0); Albumin/Globulin Ratio 0.9 (0.8-1.8); Bilirubin, Total 0.5 mg/dL (0.1-1.0); Bun/Creatinine Ratio 8.7 (12.0-20.0); Calcium, Blood 8.7 mg/dL (8.5-10.1); Globulin, Blood 3.2 g/dL (2.2-4.0); Potassium, Blood 3.5 mmol/L (3.5-5.5)
[2025-01-06] MEDS ORDERED: EPINEPhrine HCl 0.1 MG/ML 10ML SYR IV ONE (17:08)
[2025-01-06] MEDS ORDERED: Cefepime HCl 2,000 MG in NS 100 ML IV ONE (17:10)
[2025-01-06] MEDS ORDERED: NS 1,000 ML IV SCH ×3 (17:10→20:00)
[2025-01-06 17:20] LABS: Influenza A, PCR NEGATIVE (NEGATIVE); Influenza B, PCR NEGATIVE (NEGATIVE); Resp Syncytial Virus, PCR NEGATIVE (NEGATIVE); SARS-Cov-2 (COVID-19) PCR, MMC NEGATIVE (NEGATIVE)
[2025-01-06] MEDS ORDERED: Vasopressin 20 UNITS in NS 100 ML IV SCH (17:55)
[2025-01-06] MEDS ORDERED: Ketamine HCl 100 MG / ML 5ML Vial ONE (18:24)
[2025-01-06] MEDS ORDERED: Ketamine HCl 100 MG / ML 5ML Vial IV ONE ×2 (18:25→18:40)
[2025-01-06] MEDS ORDERED: Albuterol 2.5 MG/3 ML VIAL ONE (19:14)
[2025-01-06] MEDS ORDERED: Albuterol 2.5 MG/3 ML VIAL INH ONE (19:30)
[2025-01-06] MEDS ORDERED: NS 1,000 ML IV ONE ×2 (19:49→19:55)
[2025-01-06] MEDS ORDERED: Ondansetron HCl 2 MG / ML 2ML Vial IV PRN (19:50)
[2025-01-06] MEDS ORDERED: Hydrocortisone Sod Succinate 100 MG Vial IV ONE (19:55)
[2025-01-06] MEDS ORDERED: Cetylpyridinium Chloride 1 EA MISC MT SCH (20:00)
[2025-01-06] MEDS ORDERED: Enoxaparin 30 MG/0.3 ML SYR SC SCH (20:11)
[2025-01-06] MEDS ORDERED: Vancomycin HCL 1,000 MG in NS 250 ML IV ONE (20:15)
[2025-01-06 20:35] LABS: Source, Urine Foley catheter
[2025-01-06 20:39] LABS: Bilirubin, Urine Neg (Neg); Blood, Urine 5+ (Neg); Glucose Qualitative, Urine Neg (Neg); Ketones, Urine Neg (Neg); Leukocyte Esterase, Urine 1+ (Neg); Nitrite, Urine Neg (Neg); Protein, Urine 3+ (Neg); Urobilinogen, Urine NORM (Normal)
[2025-01-06] MEDS ORDERED: Rocuronium Bromide 10 MG/ML 5ML Injection IV ONE (20:42)
[2025-01-06 20:45] LABS: Appearance, Urine Hazy (Clear); Color, Urine Yellow (P-Yellow); Squamous Epithelial Cells Few /hpf (Few)
[2025-01-06 20:46] LABS: Amorphous Mod (0-Heavy); Bacteria Mod /hpf; Mucus Light (0-Heavy)
[2025-01-06 21:00] LABS: U Amphetamine Screen Not Detected; U Barbituate Screen Not Detected; U Benzodiazapine Screen Not Detected; U Buprenorphine Screen Not Detected; U Cannabinoids Screen Not Detected; U Cocaine Screen Not Detected; U Methadone Screen Not Detected; U Methamphetamine Screen Not Detected; U Opiates Screen Not Detected; U Oxycodone Screen Not Detected; U Phencyclidine Screen Not Detected
[2025-01-06 21:14] LABS: PCO2 Arterial 42.1 mmHg (35-45); PO2 Arterial 84.2 mmHg (80-100); pH Blood Arterial 7.12 (7.35-7.45)
[2025-01-06] MEDS ORDERED: Sodium Bicarb 8.4% Inj 150 MEQ in Dextrose 5% 1,000 ML IV SCH (21:45)
[2025-01-06] MEDS ORDERED: Sodium Bicarb 8.4% 1 MEQ/ML 50 ML Vial IV ONE (21:45)
--- NOTE | 2025-01-06 22:44 | NUR ---
COMMUNICATION WITH FAMILY KIRSTIN HAS SPOKE TO THE PATIENT'S MOTHER. I HAVE SPOKED TO THE . BOTH HAVE TALKED WITH THE PATIENT'S ADULT DAUGHTERS. HER CALLED AGAIN AND SAID THAT THEY WANTED TO KEEP THE PATIENT A FULL CODE AT THIS TIME. AND MOTHER SEEM TO UNDERSTAND HOW CRITICAL THE PATIENT IS. I ADVISED I WOULD CALL THEM IF ANYTHING CHANGES.
[2025-01-07] VITALS (99 sets, daily range): BP systolic 56–156; BP diastolic 20–126
[2025-01-07] MEDS ORDERED: Hydrogen Peroxide 1.5 % Solution MT SCH
[2025-01-07] MEDS ORDERED: Sodium Bicarb 8.4% 1 MEQ/ML 50 ML Vial IV ONE (00:50)
[2025-01-07] MEDS ORDERED: FentaNYL Citrate 50 MCG/ML 2 ML Injection IV PRN (01:00)
[2025-01-07] MEDS ORDERED: Sodium Bicarb 8.4% 50 mEq Syringe IV ONE (01:00)
[2025-01-07 04:44] LABS: PCO2 Arterial 41.1 mmHg (35-45)
[2025-01-07 04:45] LABS: PO2 Arterial 45.4 mmHg (80-100)
[2025-01-07] MEDS ORDERED: NS 500 ML IV ONE (04:55)
[2025-01-07 05:39] LABS: Hemoglobin 10.7 g/dL (11.5-16.0); Mean Corpuscular HGB Conc 32.4 g/dL (31.5-36.5); Mean Corpuscular Volume 80 fL (80-100); Mean Platelet Volume 9.3 fL (9.1-12.4); NRBC ABSOLUTE 0.02 K/mm3 (0.00-0.02); Platelet Count 419 K/mm3 (150-400); RDW Coefficient Variation 15.9 % (11.7-14.2); RDW Standard Deviation 46.5 fL (35.1-46.3); Red Blood Cell Count 4.11 M/mm3 (3.80-5.20); White Blood Cell Count 44.95 K/mm3 (4.00-11.30)
[2025-01-07] MEDS ORDERED: Cefepime HCl 1,000 MG in NS 100 ML IV SCH (06:00)
[2025-01-07 06:01] LABS: BAND PERCENT MAN 31 % (0-8); BASOPHILS PERCENT MAN 0 % (0-2); EOSINOPHILS PERCENT MAN 0 % (0-6); LYMPHOCYTES ABSOLUTE MAN 2.69 K/mm3 (0.84-5.20); LYMPHOCYTES PERCENT MAN 6 % (21-46); METAMYELOCYTE ABSOLUTE MAN 0.44 K/mm3 (0.00-0.00); METAMYELOCYTE PERCENT MAN 1 % (0-0); MONOCYTES ABSOLUTE MAN 1.79 K/mm3 (0.16-1.47); MONOCYTES PERCENT MAN 4 % (4-13); SEG NEUTROPHILS PERCENT MAN 58 % (41-73); TOTAL CELLS COUNTED 100
[2025-01-07 06:08] LABS: Albumin, Blood 1.9 g/dL (3.4-5.0); Albumin/Globulin Ratio 0.8 (0.8-1.8); Bilirubin, Total 0.5 mg/dL (0.1-1.0); Bun/Creatinine Ratio 14.3 (12.0-20.0); Calcium, Blood 6.6 mg/dL (8.5-10.1); Creatinine, Blood 2.31 mg/dL (0.40-1.00); Globulin, Blood 2.5 g/dL (2.2-4.0); Total Protein, Blood 4.4 g/dL (6.4-8.2)
--- NOTE | 2025-01-07 06:32 | NUR ---
SHIFT SUMMARY: PT ARRIVED FROM ED INTUBATED AND ON LEVO, EPI, AND VASOPRESSIN GTTS. SHE WAS NOT ON ANY SEDATION AND HAS NOT BEEN THROUGHOUT SHIFT. SHE HAS NOT EXHIBITED PURPOSEFUL MOVEMENT NOR RESPONSE TO ANY PHSYICAL STIMULI. PT HAS NOT HAD CORNEAL REFLEX, BUT DOES COUGH. LISA HERNANDEZ BREATHING NOTED THIS MORNING. HAS HAD HYPOTENSION ISSUES THROUGHOUT SHIFT AND IS CURRENTLY ON ALL 3 PRESSORS. PT HAS BEEN IN A SINUS RHYTHM WITH A RATE THAT HAS INCREASED FROM 120S TO 150S THIS AM. PROVIDER IS AWARE, INTERVENTIONS HAVE NOT SEEMED TO HAVE MUCH AFFECT ON HER HR. FAMILY HAS BEEN UPDATED ON HER CONDITION THIS MORNING.
[2025-01-07] MEDS ORDERED: Potassium Chloride 40 MEQ in NS 250 ML IV ONE (06:55)
--- NOTE | 2025-01-07 07:00 | NUR ---
ASSUME CARE: I have assumed care of this patient.
[2025-01-07] MEDS ORDERED: Hydrocortisone Sod Succinate 100 MG Vial IV SCH (08:00)
[2025-01-07] MEDS ORDERED: Phenylephrine HCl in 0.9% NaCl 250 ML IV SCH (08:15)
[2025-01-07] MEDS ORDERED: Albuterol 2.5 MG/3 ML VIAL INH PRN (09:45)
[2025-01-07] MEDS ORDERED: Ipratropium/Albuterol SulF 2.5-0.5MG/3 ML Amp INH SCH (09:45)
[2025-01-07] MEDS ORDERED: Lactated Ringer's 1,000 ML IV SCH ×2 (09:45→13:30)
[2025-01-07 12:44] LABS: PCO2 Arterial 29.5 mmHg (35-45); PO2 Arterial 49 mmHg (80-100); pH Blood Arterial 7.56 (7.35-7.45)
[2025-01-07 13:17] LABS: Hematocrit 35.8 % (33.0-51.0); Hemoglobin 11.4 g/dL (11.5-16.0); Mean Corpuscular HGB 26.5 pg (26.0-34.0); Mean Corpuscular HGB Conc 31.8 g/dL (31.5-36.5); Mean Corpuscular Volume 83 fL (80-100); Mean Platelet Volume 9.6 fL (9.1-12.4); NRBC ABSOLUTE 0.03 K/mm3 (0.00-0.02); NRBC Auto 0.1 /100 WBC (0.0-0.2); Platelet Count 339 K/mm3 (150-400); RDW Standard Deviation 48.8 fL (35.1-46.3); Red Blood Cell Count 4.31 M/mm3 (3.80-5.20); White Blood Cell Count 38.49 K/mm3 (4.00-11.30)
[2025-01-07 13:36] LABS: Magnesium, Blood 1.6 mg/dL (1.6-2.4)
[2025-01-07 13:37] LABS: Albumin, Blood 1.9 g/dL (3.4-5.0); Albumin/Globulin Ratio 0.7 (0.8-1.8); Bilirubin, Total 1.1 mg/dL (0.1-1.0); Bun/Creatinine Ratio 15.2 (12.0-20.0); Calcium, Blood 6.4 mg/dL (8.5-10.1); Creatinine, Blood 1.98 mg/dL (0.40-1.00); Globulin, Blood 2.9 g/dL (2.2-4.0); Phosphorus, Blood 2.6 mg/dL (2.5-4.9); Potassium, Blood 4.1 mmol/L (3.5-5.5); Total Protein, Blood 4.8 g/dL (6.4-8.2)
[2025-01-07 14:17] LABS: BAND PERCENT MAN 22 % (0-8); BASOPHILS PERCENT MAN 0 % (0-2); EOSINOPHILS PERCENT MAN 0 % (0-6); LYMPHOCYTES ABSOLUTE MAN 0.76 K/mm3 (0.84-5.20); LYMPHOCYTES PERCENT MAN 2 % (21-46); MONOCYTES ABSOLUTE MAN 0.76 K/mm3 (0.16-1.47); MONOCYTES PERCENT MAN 2 % (4-13); NEUTROPHILS ABSOLUTE MAN 36.95 K/mm3 (1.96-9.15); SEG NEUTROPHILS PERCENT MAN 74 % (41-73); TOTAL CELLS COUNTED 100
[2025-01-07] MEDS ORDERED: Calcium Chloride 10% 1,000 MG in NS 50 ML IV SCH (15:30)
[2025-01-07 18:07] LABS: Base Excess Venous 4.4 mmol/L; Bicarbonate Venous 28.5 mmol/L (24.0-30.0); PCO2 Venous 32.1 mmHg (38-42)
[2025-01-07 18:08] LABS: pH Blood Venous 7.53 (7.34-7.37)
[2025-01-07 18:31] LABS: Bun/Creatinine Ratio 18.6 (12.0-20.0); Calcium, Blood 7.7 mg/dL (8.5-10.1); Creatinine, Blood 1.88 mg/dL (0.40-1.00); Potassium, Blood 3.5 mmol/L (3.5-5.5)
--- NOTE | 2025-01-07 18:51 | NUR ---
PROVIDER PHONE CALL: Hospitalist called and notified of fever; tylenol requested. See new order.
[2025-01-07] MEDS ORDERED: Acetaminophen 650 MG Supp PR PRN (18:55)
--- NOTE | 2025-01-07 18:55 | NUR ---
PALLIATIVE CARE NOTE: THIS MORNING ADVANCE DIRECTIVE FOUND ON FILE. PT HAS NAMED HER MOTHER ANABELL MAS MIDDLE SCHOOL COACH. 2ND IS JESSICA RUCKER A FRIEND. PT IS JEHOVA WITNESS AND DOES NOT WANT BLOOD PRODUCTS. AD PLACED ON PATIENT CHART. DR. BARTHOLOMEW AND PRIMARY RN UPDATED WITH AD CHOICES. PT IS SEDATED AND ON VENTILATOR AT THIS TIME. UNABLE TO DISCUSS ANY GOALS OF CARE WITH PATIENT AT THIS TIME.
--- NOTE | 2025-01-07 18:59 | NUR ---
SHIFT SUMMARY: Pt continues on ventilator without sedation. Vent settings AC/VC 26/400/10/50%. Epinephrine titrated off and neosynephrine started. Liter bolus of LR administered. ECHO and head CT obtained today. Family at bedside throughout the day. Advanced directive obtained from palliative care. Electrolytes replaced per NOV. Pt with gag reflex at end of shift.
--- NOTE | 2025-01-07 20:44 | NUR ---
COMMUNICATION PTS CALLED, I UPDATED HIM ON HER CURRENT CONDITION
[2025-01-07] MEDS ORDERED: Vancomycin HCL 750 MG in NS 250 ML IV SCH (21:00)
[2025-01-07] MEDS ORDERED: Lactobacil 2-S.Thermo-Bifido 1 1 Cap PO SCH (21:00)
[2025-01-07] MEDS ORDERED: Vancomycin HCL 500 MG in NS 250 ML IV SCH (21:00)
[2025-01-08] VITALS (71 sets, daily range): BP systolic 103–155; BP diastolic 64–139
[2025-01-08 03:53] LABS: Hematocrit 28.5 % (33.0-51.0); Hemoglobin 9.5 g/dL (11.5-16.0); Mean Corpuscular HGB 26.1 pg (26.0-34.0); Mean Corpuscular HGB Conc 33.3 g/dL (31.5-36.5); Mean Platelet Volume 9.1 fL (9.1-12.4); Platelet Count 198 K/mm3 (150-400); RDW Standard Deviation 46.3 fL (35.1-46.3); Red Blood Cell Count 3.64 M/mm3 (3.80-5.20); White Blood Cell Count 26.51 K/mm3 (4.00-11.30)
[2025-01-08 03:57] LABS: Mean Corpuscular Volume 78 fL (80-100)
[2025-01-08 04:11] LABS: Magnesium, Blood 1.2 mg/dL (1.6-2.4)
[2025-01-08 04:12] LABS: Bun/Creatinine Ratio 22.8 (12.0-20.0); Calcium, Blood 7.3 mg/dL (8.5-10.1); Creatinine, Blood 1.67 mg/dL (0.40-1.00); Phosphorus, Blood 2.2 mg/dL (2.5-4.9); Potassium, Blood 3.4 mmol/L (3.5-5.5)
[2025-01-08 04:31] LABS: BAND PERCENT MAN 9 % (0-8); BASOPHILS PERCENT MAN 0 % (0-2); EOSINOPHILS PERCENT MAN 0 % (0-6); LYMPHOCYTES ABSOLUTE MAN 1.06 K/mm3 (0.84-5.20); LYMPHOCYTES PERCENT MAN 4 % (21-46); MONOCYTES ABSOLUTE MAN 0.26 K/mm3 (0.16-1.47); MONOCYTES PERCENT MAN 1 % (4-13); NEUTROPHILS ABSOLUTE MAN 25.18 K/mm3 (1.96-9.15); SEG NEUTROPHILS PERCENT MAN 86 % (41-73); TOTAL CELLS COUNTED 100
[2025-01-08 04:33] LABS: PCO2 Arterial 29.3 mmHg (35-45); PO2 Arterial 75.4 mmHg (80-100); pH Blood Arterial 7.58 (7.35-7.45)
[2025-01-08] MEDS ORDERED: MAGNESIUM SULFATE IV SCH (04:55)
--- NOTE | 2025-01-08 05:25 | NUR ---
SHIFT SUMMARY: PT HAS CONTINUED TO INCREASE HER MOVEMENTS AND REFLEXIVE RESPONSE. NO PURPOSEFUL MOVEMENT YET THOUGH. SHE HAS TOLERATED THE VENT BETTER AND RESPIRATIONS HAVE BEEN MORE REGULAR. BLOOD PRESSURE IMPROVED AND PT IS DOWN TO ONE PRESSOR. HR CAME DOWN TO THE 110S FOR A SHORT TIME BUT HAS RETURNED TO 140S-150S. SHE HAS BEEN FEBRILE. URINE OUTPUT HAS IMPROVED WITH GOOD OUTPUT THIS SHIFT. SHE HAS NOT REQUIRED SEDATION BUT HAS BEEN MEDICATED FOR PAIN.
[2025-01-08] MEDS ORDERED: Potassium Phosphate Dibasic 15 MM in Dextrose 5% 250 ML IV ONE (05:30)
[2025-01-08] MEDS ORDERED: Magnesium Sulf 2 GM/Water 50ML 50 ML IV ONE (05:30)
--- NOTE | 2025-01-08 08:42 | NUR ---
THIS RN ASSUMED CARE OF PT AT 0700. PT IS INTUABTED, NO SEDATION IS ON, PT IS NOT HAVING ANY PURPOSEFUL MOVEMENT, PT IS RESPONDING TO PAINFUL IN UPPER AND LOWER EXTREMITIES, PUPILS ARE REACTIVE. PT HEART RATE IN THE 140s, SINUS TACH, BLOOD PRESSURE STABLE AT 106/73 LEVO AT 7MCG, UNABLE TO ASSESS FOR CHEST PAIN DUE TO PT BEING INTUBATED. PT IS ON VENTILATOR 26/400/10/50%, SOUNDS RHONCHI/CLEAR/DIMINISHED. PT HAS CENTRAL LINE IN RIGHT SUBCLAVIAN THAT IS CLEAN/DRY/INTACT. PT HAS WARD DRAINING TO GRAVITY. TUBE FEEDS ARE RUNNING AT GOAL. NO NEW INTERVENTIONS AT THIS TIME. PLAN OF CARE CONTINUED.
[2025-01-08] MEDS ORDERED: Calcium Chloride 10% 2,000 MG in NS 100 ML IV ONE (10:15)
[2025-01-08 11:02] LABS: Vancomycin, Random 16.3 ug/mL
[2025-01-08] MEDS ORDERED: CefTRIAXone Sodium 2,000 MG in NS 100 ML IV SCH (11:30)
[2025-01-08] MEDS ORDERED: Vancomycin HCL 500 MG in NS 250 ML IV SCH (12:00)
--- NOTE | 2025-01-08 14:09 | NUR ---
PALLIATIVE CARE NOTE: PT CONTINUES TO BE ON VENTILATOR. PRIMARY RN REPORTS PT IS OFF SEDATION AND HAS NO MEANINGFUL RESPONSIVENESS. PER DR. BARTHOLOMEW PT IS NOT NEEDING PRESSORS AT THIS TIME AND IS IMPROVING HEMODYNAMICALLY. ATTEMPTED TO CONTACT MOTHER WHO IS DECISION MAKER ACCORDING TO ADVANCE DIRECTIVE. LEFT ANABELL A MESSAGE REQUESTING RETURN CALL AT [phone]. ALTERNATE # [phone] ON ADVANCE DIRECTIVE DOES NOT BELONG TO ANABELL
[2025-01-08] MEDS ORDERED: Cefepime HCl 1,000 MG in NS 100 ML IV SCH (16:00)
--- NOTE | 2025-01-08 17:59 | NUR ---
PT SUMMARY PT IS STILL INTUBATED, SEDATION HAS BEEN OFF ALL DAY TODAY AND YESTERDAY. WAS AT BEDSIDE, PT HEART RATE WAS IN THE 130s, SWITCHED PRESSORS FROM LEVO TO DAVID, DAVID WAS TITRATED OFF QUICKLY, STARTED IT AT 40MCG AND HAD IT OFF BY 1300, PT HEART RATE DROPPED DOWN TO THE 100s. CHANGED ANTIBIOTICS TO ROCHEPHIN. PT OXYGEN DEMAND HAS GONE DOWN, NOW ON 26/400/5/40%. PT ALSO HAD A BOWEL MOVEMENT THAT WAS BROWN AND FORMED. NO OTHER INTERVENTIONS AT THIS TIME. PLAN OF CARE CONTINUED.
--- NOTE | 2025-01-08 19:27 | NUR ---
ASSUMPTION OF CARE REPORT RECIEVED FROM DAY SHIFT NURSE. UPON INITIAL ASSESSMENT OF PT, THIS NURSE FINDS PT NOT FOLLOWING COMMANDS AT THIS TIME, AND ONLY MOVING LOWER EXTREMETIES AND HEAD. PT DOES MOVE HEAD WHEN THIS NURSE ATTEMPTS TO WIPE BUILDUP FROM PTS EYES, BUT OTHERWISE DOES NOT HAVE PURPOSEFUL MOVEMENT. WILL CONTINUE TO MONITOR AND ASSESS THROUGHOUT SHIFT.
[2025-01-09] VITALS (37 sets, daily range): BP systolic 95–148; BP diastolic 61–127
[2025-01-09 03:44] LABS: BASOPHILS ABSOLUTE AUTO 0.06 K/mm3 (0.00-0.23); BASOPHILS PERCENT AUTO 0 % (0-2); Hematocrit 26.2 % (33.0-51.0); Hemoglobin 8.7 g/dL (11.5-16.0); LYMPHOCYTES ABSOLUTE AUTO 0.34 K/mm3 (0.84-5.20); LYMPHOCYTES PERCENT AUTO 2 % (21-46); MONOCYTES ABSOLUTE AUTO 0.52 K/mm3 (0.16-1.47); MONOCYTES PERCENT AUTO 3 % (4-13); Mean Corpuscular HGB 26.6 pg (26.0-34.0); Mean Corpuscular HGB Conc 33.2 g/dL (31.5-36.5); Mean Corpuscular Volume 80 fL (80-100); Mean Platelet Volume 9.8 fL (9.1-12.4); NRBC ABSOLUTE 0.02 K/mm3 (0.00-0.02); NRBC Auto 0.1 /100 WBC (0.0-0.2); Platelet Count 96 K/mm3 (150-400); RDW Coefficient Variation 16.1 % (11.7-14.2); RDW Standard Deviation 46.7 fL (35.1-46.3); Red Blood Cell Count 3.27 M/mm3 (3.80-5.20); White Blood Cell Count 18.33 K/mm3 (4.00-11.30)
[2025-01-09 03:51] LABS: Base Excess Venous 6.3 mmol/L; Bicarbonate Venous 29.7 mmol/L (24.0-30.0); PCO2 Venous 39.4 mmHg (38-42); pH Blood Venous 7.49 (7.34-7.37)
[2025-01-09 03:53] LABS: EOSINOPHILS PERCENT AUTO 0 % (0-6); IMMATURE GRAN ABSOLUTE AUTO 0.14 K/mm3 (0.00-0.10); IMMATURE GRAN PERCENT AUTO 1 % (0-1); NEUTROPHILS ABSOLUTE AUTO 17.27 K/mm3 (1.96-9.15); NEUTROPHILS PERCENT AUTO 94 % (41-73)
[2025-01-09 04:04] LABS: Bun/Creatinine Ratio 25.5 (12.0-20.0); Calcium, Blood 7.5 mg/dL (8.5-10.1); Creatinine, Blood 1.41 mg/dL (0.40-1.00); Phosphorus, Blood 2.5 mg/dL (2.5-4.9); Potassium, Blood 2.8 mmol/L (3.5-5.5)
[2025-01-09 05:09] LABS: BAND PERCENT MAN 1 % (0-8); BASOPHILS PERCENT MAN 0 % (0-2); EOSINOPHILS PERCENT MAN 0 % (0-6); METAMYELOCYTE ABSOLUTE MAN 0.18 K/mm3 (0.00-0.00); METAMYELOCYTE PERCENT MAN 1 % (0-0); MONOCYTES ABSOLUTE MAN 0.36 K/mm3 (0.16-1.47); MONOCYTES PERCENT MAN 2 % (4-13); NEUTROPHILS ABSOLUTE MAN 17.78 K/mm3 (1.96-9.15); SEG NEUTROPHILS PERCENT MAN 96 % (41-73); TOTAL CELLS COUNTED 100
[2025-01-09] MEDS ORDERED: Potassium Chl 20MEQ/Water100ML 100 ML IV SCH (05:15)
--- NOTE | 2025-01-09 06:25 | NUR ---
SHIFT SUMMARY PT HAS TOLERATED SHIFT WELL WITH NO SIGNIFICANT CHANGES IN STATUS. PT REMAINED REFLEXIVE THROUGH NIGHT AND SEEMED TO WAKE UP THIS AM ABLE TO SQUEEZE THE BEDSIDE WITH HER HANDS A BED CLEAN WAS BEING ACCOMPLISHED. PT DOES HAVE DIFFICULTY TOLERATING ETT AND IS FREQUENTLY COUGHING WITH RESPERATIONS. PT SEEMS TO FOLLOW SOME COMMANDS FOR THIS NURSE WITH A FLICKER OF MUSCLE WHEN ASKED TO SQUEEZE HANDS OR WIGGLE TOES. WILL CONTINUE TO MONITOR AND PROGRESS WILL BE REPORTED TO DAY SHIFT TEAM.
--- NOTE | 2025-01-09 07:28 | NUR ---
THIS RN ASSUMED CARE OF PT AT 0700. PT IS INTUBATED, SEDATION HAS BEEN OFF SINCE THURSDAY, PT IS MORE RESPONSIVE TODAY THAN YESTERDAY BUT NOT HAVING PURPOSEFUL MOVEMENT. DR. DOVE WAS AT BEDSIDE THIS MORNING. PT HEART RATE SINUS TACH 100-115s, BLOOD PRESSURE STABLE AT 108/71 MAP OF 83, PRESSORS HAVE BEEN OFF SINCE YESTERDAY, UNABLE TO ASSESS FOR CHEST PAIN DUE TO INTUBATION. PT IS ON VENTILATOR 26/400/5/35%, SATTING >95%. PT HAS A CENTRAL LINE CLEAN/DRY/INTACT, PT HAS WARD DRAINING TO GRAVITY. NO OTHER INTERVENTIONS AT THIS TIME. PLAN OF CARE CONTINUED.
[2025-01-09] MEDS ORDERED: Thiamine HCl 100 MG Tab PT SCH (09:00)
[2025-01-09] MEDS ORDERED: Multivitamins-Minerals Liquid 15 ML Oral Syringe PT SCH (09:00)
[2025-01-09] MEDS ORDERED: Enoxaparin 40 MG/0.4 ML SYR SC SCH (09:00)
[2025-01-09] MEDS ORDERED: Calcium Chloride 10% 2,000 MG in NS 100 ML IV ONE (09:10)
[2025-01-09] MEDS ORDERED: propofoL 100 ML IV SCH (09:25)
[2025-01-09] MEDS ORDERED: Vancomycin HCL 1,000 MG in NS 250 ML IV SCH (13:00)
--- NOTE | 2025-01-09 18:00 | NUR ---
PT SUMMARY PT IS STILL INTUBATED, SEDATION HAS STILL BEEN OFF. PT HEART RATE IN THE 100s, BLOOD PRESSURES STABLE AT 112/76. PT VENTILATOR SETTINGS HAVE BEEN UNCHANGED, SATTING >95%. NO NEW CHANGED THROUGHOUT THE DAY, PT IS BECOMING MORE AWAKE BUT NOT PURPOSEFUL. HAS SEEN PT BEDSIDE, NO NEW CHANGED, THINKS PT NEEDS MORE TIME. PLAN OF CARE CONTINUED.
[2025-01-10] VITALS (70 sets, daily range): BP systolic 90–131; BP diastolic 61–95
[2025-01-10 03:36] LABS: Hematocrit 27.8 % (33.0-51.0); Mean Corpuscular HGB Conc 32.4 g/dL (31.5-36.5); Mean Corpuscular Volume 80 fL (80-100); Mean Platelet Volume 10.1 fL (9.1-12.4); Platelet Count 88 K/mm3 (150-400); RDW Coefficient Variation 16.3 % (11.7-14.2); RDW Standard Deviation 47.5 fL (35.1-46.3); Red Blood Cell Count 3.46 M/mm3 (3.80-5.20); White Blood Cell Count 10.45 K/mm3 (4.00-11.30)
[2025-01-10 03:50] LABS: Bun/Creatinine Ratio 35.7 (12.0-20.0); Calcium, Blood 8.7 mg/dL (8.5-10.1); Creatinine, Blood 1.26 mg/dL (0.40-1.00); Magnesium, Blood 2.1 mg/dL (1.6-2.4); Phosphorus, Blood 2.3 mg/dL (2.5-4.9); Potassium, Blood 3.3 mmol/L (3.5-5.5)
[2025-01-10] MEDS ORDERED: Potassium Phosphate Dibasic 15 MM in Dextrose 5% 250 ML IV ONE (04:00)
[2025-01-10 04:08] LABS: BAND PERCENT MAN 1 % (0-8); BASOPHILS PERCENT MAN 0 % (0-2); EOSINOPHILS PERCENT MAN 0 % (0-6); LYMPHOCYTES ABSOLUTE MAN 0.31 K/mm3 (0.84-5.20); LYMPHOCYTES PERCENT MAN 3 % (21-46); MONOCYTES ABSOLUTE MAN 0.62 K/mm3 (0.16-1.47); MONOCYTES PERCENT MAN 6 % (4-13); SEG NEUTROPHILS PERCENT MAN 90 % (41-73); TOTAL CELLS COUNTED 100
--- NOTE | 2025-01-10 06:13 | NUR ---
SHIFT SUMMARY PT HAS TOLERATED SHIFT WELL WITH NO SIGNIFICANT CHANGES IN STATUS. PT IS PURPOSEFUL WITH SOME MOVEMENTS. PT IS NOT ABLE TO SQUEEZE HANDS BUT IS ABLE TO WIGGLE TOES ON COMMAND AND ASSISTED WITH MOVEMENT WHEN BED BATH WAS ACCOMPLISHED. PT DOES NOT TOLERATE ETT TUBE WELL WITHOUT SEDATION, PROPOFOL WAS STARTED AROUND 0200 AND PT HAS TOLERATED IT WELL. WILL CONTINUE TO MONITOR UNTIL REPORT PASSED TO DAY SHIFT TEAM.
--- NOTE | 2025-01-10 09:22 | NUR ---
ASSUMED PT CARE AT 0700 PATIENT IS ON LIGHT SEDATION AND ABLE TO MAEW, PATIENT HAS TUBE FEEDING TO OG AND HAS ETT IN PLACE 7.5 WITH VENT SETTINGS 26/400/5/35%. VS STABLE CURRENTLY AFEBRILE AND MAP OF BP GREATER THAN 65. PATIENT HAS A WARD IN PLACE WITH YELLOW URINE OUT. CENTRAL LIINE SUBCLAVIAN TO RIGHT UPPER CHEST. PT NOT IN RESTRAINTS CURRENTLY AND IS ABLE TO LEFT BOTH ARMS UP TO CHEST LEVEL. PPPX4 EXTREM. EDEMA TO BILAT HANDS AND FEET 3+. WILL CONTINUE CARE DIRECTED.
[2025-01-10] MEDS ORDERED: dexmedeTOMIDine 100 ML IV SCH (09:50)
[2025-01-10] MEDS ORDERED: Banana Flakes/Tos 1 EA Powder Pack PT SCH (14:00)
[2025-01-10] MEDS ORDERED: Lidocaine 2% Viscous Soln 20 ML,Nystatin 100,000 Unit/ml Susp 20 ML,Mag Hydrox/Al Hydro... MT SCH (18:00)
--- NOTE | 2025-01-10 18:26 | NUR ---
WOUND NOTE: DR KIM WAS CALLED AND UPDATED ON PATIENTS CONDITION THIS EVENING. 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 PICTURES WERE TAKEN AND IS NOTIFIED AND UPDATED.
--- NOTE | 2025-01-10 18:29 | NUR ---
END OF SHIFT NOTE PATIENT HAS HAD AN EVENTFUL DAY. PT STARTED THE DAY RESTLESS ON THE VENTILATOR WITH ONLY 5MCG OF PROPOFOL GOING. SHE WAS AND IS HAVE LOOSE STOOLS. SHE GOT A RECTAL TUBE PLACED THIS MORNING. SHE HAS MOISTURE INJURY TO HER BOTTOM AND CREAM HAS BEEN APPLIED TO PROTECT THE SKIN. SHE ALSO HAS BEEN KEPT OFF HER BOTTOM MUCH POSSIBLE TODAY. COSME WAS EXTUBATED COME NOON. SHE WAS ABLE TO FOLLOW COMMANDS AND HAVE A GOOD COUGH. SHE IS STILL VERY DROWSY RASS -1 OR +3. SHE HAS BECOME INTERMITTENTLY AGGRESSIVE PULLING AT LINES AND GOWN AND SO PRECEDEX WAS STARTED ON HER GOING TO HER CENTRAL LINE TO RIGHT SUBCLAVIAN. PATIENT IS CURRENTLY NPO AND A SWALLOW EVAL IS SCHEDULED FOR TOMORROW. HER VITAL SIGNS REMAIN STABLE WITH TACHYCARDIA 110-120. AFEBRILE ALL DAY WELL. MOTHER WAS UPDATED THIS AM BY CHARGE NURSE JACEY. WILL GIVE REPORT TO NEXT SHIFT TO RESUME CARE.
[2025-01-11] VITALS (43 sets, daily range): BP systolic 91–158; BP diastolic 59–108
[2025-01-11 04:15] LABS: BASOPHILS ABSOLUTE AUTO 0.04 K/mm3 (0.00-0.23); BASOPHILS PERCENT AUTO 0 % (0-2); EOSINOPHILS ABSOLUTE AUTO 0.03 K/mm3 (0.00-0.68); EOSINOPHILS PERCENT AUTO 0 % (0-6); Hematocrit 27.9 % (33.0-51.0); Hemoglobin 8.8 g/dL (11.5-16.0); IMMATURE GRAN PERCENT AUTO 2 % (0-1); LYMPHOCYTES ABSOLUTE AUTO 0.35 K/mm3 (0.84-5.20); LYMPHOCYTES PERCENT AUTO 4 % (21-46); MONOCYTES ABSOLUTE AUTO 0.68 K/mm3 (0.16-1.47); MONOCYTES PERCENT AUTO 7 % (4-13); Mean Corpuscular HGB Conc 31.5 g/dL (31.5-36.5); Mean Corpuscular Volume 82 fL (80-100); Mean Platelet Volume 10.4 fL (9.1-12.4); NEUTROPHILS ABSOLUTE AUTO 8.72 K/mm3 (1.96-9.15); NEUTROPHILS PERCENT AUTO 87 % (41-73); Platelet Count 120 K/mm3 (150-400); RDW Coefficient Variation 16.5 % (11.7-14.2); RDW Standard Deviation 50.1 fL (35.1-46.3); Red Blood Cell Count 3.39 M/mm3 (3.80-5.20); White Blood Cell Count 10.02 K/mm3 (4.00-11.30)
[2025-01-11 04:28] LABS: Albumin, Blood 1.8 g/dL (3.4-5.0); Anion Gap 10 mmol/L (3-11); Blood Urea Nitrogen 43 mg/dL (8-24); Bun/Creatinine Ratio 32.8 (12.0-20.0); CO2, Blood 27 mmol/L (21-32); Calcium, Blood 7.8 mg/dL (8.5-10.1); Chloride, Blood 109 mmol/L (98-108); Creatinine, Blood 1.31 mg/dL (0.40-1.00); Glomerular Filtration Rate 48 (60-); Glucose, Blood 105 mg/dL (70-99); Phosphorus, Blood 3.8 mg/dL (2.5-4.9); Potassium, Blood 3.2 mmol/L (3.5-5.5); Sodium, Blood 143 mmol/L (136-145)
[2025-01-11] MEDS ORDERED: Potassium Chloride 40 MEQ in NS 250 ML IV ONE (05:30)
--- NOTE | 2025-01-11 06:03 | NUR ---
SHIFT SUMMARY: PT REMAINS LETHARGIC. ONLY DISPLAYING LOCALIZING MOVEMENT, NOTHING PURPOSEFUL OR ON COMMAND. NOT COMMUNICATING. PRECEDEX TURNED OFF SEVERAL HOURS AGO. NO INCREASE IN AGITATION OR RESPONSE. ABCS INTACT AND WNL. SINUS TACH ON MONITOR. BP STABLE. RECTAL TUBE AND WARD CATH PATENT AND DRAINING TO GRAVITY.
--- NOTE | 2025-01-11 07:14 | NUR ---
SHIFT EVENT: AT 0640 THE PATIENT STARTED BECOMING MORE RESTLESS AND APPEARED TO BE ATTEMPTING TO CLEAR HER THROAT. PATIENT QUICKLY GOT WORSE. INCREASED RR, WITH INCREASED O2 DEMANDS. RT BEDSIDE STARTED A BREATHING TREATMENT AND THE NURSING STAFF SUPPORTED THE PATIENT TO HELP ALLEVIATE RESPIRATORY DECLINE. PRECEDEX RESTARTED DUE TO THE INCREASED AGITATION. THE PATIENT IS NOT REDIRECTABLE AND NOT FOLLOWING COMMANDS. APPEARS TO BE COMPLETELY FOCUSED ON MAINTAINING A TRI-POD POSITION. O2 INCREASED FROM 2 LPM TO 4 LPM THEN MOVED TO AN OXY MASK AFTER THE BREATHING TREATMENT COMPLETED. PATIENT SPO2 IMPROVED FROM 70S-80S TO 90S. MD IS BEDSIDE AND DAY SHIFT NURSE WAS GIVEN HANDOFF.
[2025-01-11] MEDS ORDERED: Furosemide 10 MG/ML 4ML Vial IV ONE (07:30)
--- NOTE | 2025-01-11 09:22 | NUR ---
THIS RN ASSUMED CARE OF PT AT 0700. PT IS FOLLOWING SOME COMMANDS BUT NOT PURPOSFUL MOVEMENT, LEFT PUPIL WAS NOT REACTIVE, AND WERE AT BEDSIDE AND NEW ORDERS HAVE BEEN PLACED. PT HEART RATE IN THE 100s, BLOOD PRESSURE STABLE AT 89/63 MAP OF 71, UNABLE TO ASSESS FOR CHEST PAIN DUE TO PT LOC. PT WAS IN RESPIRATORY DISTRESS, SOUNDED COURSE, NEW ORDERS HAVE BEEN PLACED. HEAD CT WAS OBTAINED. PT HAS WARD CATHETER DRAINING TO GRAVITY. PT HAS RIGHT SUBCLAVIAN CENTRAL LINE THAT IS CLEAN/DRY/INTACT. NO OTHER INTERVENTIONS AT THIS MOMENT, HAS COME IN AND SEEN PT. PLAN OF CARE CONTINUED.
--- NOTE | 2025-01-11 18:15 | NUR ---
PT SUMMARY PT THIS AM WAS HAVING RESPIRTORY DISTREAA, NOT DOING WELL, WAS AT BEDSIDE AND SAW PT WAS NET POSITIVE 10L AND NEW ORDER FOR LASIX WAS ORDERED AND PT GOT BETTER THROUGHOUT THE DAY. PT IS RESPONDING TO COMMANDS BUT STILL HAVING TROUBLE MAKING NEEDS KNOWN BY SPEAKING. PT WAS ON BIPAP INTERMITENTLY BUT IS NOW ON 3L NC. NO OTHER INTERVENTIONS AT THIS TIME. HEAD CT CAME BACK NEGATIVE. PLAN OF CARE CONTINUED.
[2025-01-11] MEDS ORDERED: NS 100 ML IV ONE (20:26)
[2025-01-11] MEDS ORDERED: ZINC OXIDE/PETROLATUM, YELLOW 1 APPLIC/71 GM PASTE TOP PRN (20:40)
[2025-01-12] VITALS (33 sets, daily range): BP systolic 133–181; BP diastolic 73–118
[2025-01-12 04:00] LABS: BASOPHILS ABSOLUTE AUTO 0.02 K/mm3 (0.00-0.23); BASOPHILS PERCENT AUTO 0 % (0-2); EOSINOPHILS PERCENT AUTO 0 % (0-6); Hematocrit 28.6 % (33.0-51.0); IMMATURE GRAN ABSOLUTE AUTO 0.35 K/mm3 (0.00-0.10); IMMATURE GRAN PERCENT AUTO 4 % (0-1); LYMPHOCYTES ABSOLUTE AUTO 0.27 K/mm3 (0.84-5.20); LYMPHOCYTES PERCENT AUTO 3 % (21-46); MONOCYTES ABSOLUTE AUTO 0.44 K/mm3 (0.16-1.47); MONOCYTES PERCENT AUTO 5 % (4-13); Mean Corpuscular HGB 26.5 pg (26.0-34.0); Mean Corpuscular HGB Conc 31.5 g/dL (31.5-36.5); Mean Corpuscular Volume 84 fL (80-100); Mean Platelet Volume 10.4 fL (9.1-12.4); NEUTROPHILS PERCENT AUTO 88 % (41-73); Platelet Count 178 K/mm3 (150-400); RDW Coefficient Variation 16.6 % (11.7-14.2); RDW Standard Deviation 50.9 fL (35.1-46.3); Red Blood Cell Count 3.39 M/mm3 (3.80-5.20); White Blood Cell Count 8.58 K/mm3 (4.00-11.30)
[2025-01-12 04:20] LABS: Anion Gap 8 mmol/L (3-11); Blood Urea Nitrogen 39 mg/dL (8-24); Bun/Creatinine Ratio 30.7 (12.0-20.0); CO2, Blood 29 mmol/L (21-32); Calcium, Blood 7.7 mg/dL (8.5-10.1); Chloride, Blood 111 mmol/L (98-108); Creatinine, Blood 1.27 mg/dL (0.40-1.00); Glomerular Filtration Rate 50 (60-); Glucose, Blood 98 mg/dL (70-99); Phosphorus, Blood 3.1 mg/dL (2.5-4.9); Potassium, Blood 3.1 mmol/L (3.5-5.5); Sodium, Blood 145 mmol/L (136-145)
[2025-01-12] MEDS ORDERED: Potassium Chloride 40 MEQ in NS 250 ML IV ONE ×2 (05:00→10:00)
--- NOTE | 2025-01-12 06:26 | NUR ---
SHIFT SUMMARY: PATIENT IS ALERT TO SELF ONLY. CAN FOLLOW COMMANDS. MUMBLES. PUPILS ARE PERRL, UNABLE TO TEST FOR ACCOMMADTION. INTACT GAG AND COUGH, UNABLE TO ASSESS SWALLOW PATIENT HAS AMS AND IS A HIGH ASPIRATION RISK. ABLE TO MOVE ALL EXTREMITIES, WITH POSITIVE MOTOR, PULSE AND SENSATION. PAIN IS CONTROLLED WITH PRN MEDICATIONS. ON 2 LPM VIA NASAL CANNULA. COARSE TO CLEAR UPPER LUNG SOUNDS WITH DIMINISHED LOWER LUNG SOUNDS. STILL STRUGGLES TO COUGH AND CLEAR, REQUIRES A LOT OF ENCOURAGEMENT AND POSITION ASSISTANCE. MONITOR SHOWS ST, TRENDING 90-115 BPM. BP WNL. 2/2 PULSES WITH +2/+3 GENERALIZED EDEMA. CAP REFILL IS LESS THAN 3 SECONDS WITH SIGNS ON CLUBBING IN NAILBEDS. AFEBRILE. ABDOMEN IS SOFT, ROUNDED TO MILDLY DISTENDED, WITH TENDERNESS IN THE RLQ. ACTIVE BT. SMEAR BM X2. WARD IN PLACE WITH ADEQUATE UOP. PLANS TO DIURESS ON DAYSHIFT. SKIN IS PALE AND BLANCHABLE WITH RONY-RECTAL MASD WHICH TRAVELS UP GLUTEAL CLEFT. CENTRAL LINE IS PATENT. PATIENT IS SLEEPING COMFORTABLY. NO COMPLICATIONS OR EVENTS TO REPORT.
[2025-01-12] MEDS ORDERED: NS 250 ML IV PRN (08:10)
[2025-01-12] MEDS ORDERED: Furosemide 10 MG/ML 4ML Vial IV SCH (09:00)
--- NOTE | 2025-01-12 12:15 | NUR ---
REASSESSMENT PT GOT UP TO THE CHAIR THIS MORNING WITH THE LIFT AND GOT VERY PANICKED, RR AND HR INCREASED, SPO2 DROPPED TO 80%. PLACED ON BIPAP AND PT WORE THAT FOR ABOUT 3 HOURS. PT WAS BACK ON 2L/NC, WORKED WITH PHYSICAL THERAPY, THEN HAD DOBHOFF PLACED FOR NUTRITION AND SHE REQUESTED BIPAP AGAIN FOR WORK OF BREATHING. PT IS ALERT, WILL ANSWER YES/NO QUESTIONS WITH HEAD NOD OR SHAKE. SPEECH IS VERY DIFFICULT TO UNDERSTAND. FOLLOWS COMMANDS, BUT SOMETIMES WITH A DELAY. LUNGS HAVE CRACKLES IN THE BASES, PRODUCTIVE COUGH. LARGE AMT OF THICK, ALANIZ/GREEN/BROWN SPUTUM SUCTIONED FROM THE BACK OF HER MOUTH. SINUS TACH, MAP 128. SPEECH THERAPY CAME BY, BUT PT DOESN'T FOLLOW COMMANDS CONSISTENLY ENOUGH TO FEEL SAFE FOR EVAL TODAY.
[2025-01-12] MEDS ORDERED: Piperacillin/Tazobactam Sod 3.375 GM in NS 100 ML IV SCH (16:00)
--- NOTE | 2025-01-12 17:03 | NUR ---
SHIFT SUMMARY PT SPENT THE MORNING AND MOST OF THE AFTERNOON UP IN THE CHAIR. SHE WORE THE BIPAP WHEN SHE GOT LIFTED BACK TO BED AND SHE TOLERATED IT MUCH BETTER. ONCE IN BED, 2 PERIPHERAL IVS PLACED AND THEN CENTRAL LINE REMOVED. TUBE FEED STARTED PER DERMATOLOGY SPECIALIST'S INSTRUCTIONS. PT'S MENTATION REMAINS UNCHANGED FROM THIS MORNING. STILL JUST NODDING YES OR NO. LUNGS STILL HAVE CRACKLES IN THE BASES, ON 2L/NC CURRENTLY. WORE BIPAP FOR 2-3 HOUR A COUPLE TIMES TODAY. SINUS TACH, MAP ABOVE 65. WARD DRAINING YELLOW URINE. PT'S DAUGHTERS VISITED AND WERE UPDATED.
[2025-01-12] MEDS ORDERED: Midazolam HCl 1MG / ML 2ML Vial ONE ×2 (17:20→17:32)
[2025-01-12] MEDS ORDERED: Midazolam HCl 1MG / ML 2ML Vial IV ONE ×2 (17:25→17:40)
[2025-01-12] MEDS ORDERED: Furosemide 10 MG/ML 4ML Vial IV ONE (17:35)
[2025-01-12] MEDS ORDERED: Metoprolol Tartrate 1 MG/ML 5 ML VIAL IV ONE (17:35)
[2025-01-12] MEDS ORDERED: Furosemide 10 MG/ML 4ML Vial ONE (17:37)
--- NOTE | 2025-01-12 17:43 | NUR ---
RESP DISTRESS WENT INTO PT'S ROOM AND ASKED IF SHE WANTED TO GO BACK ON BIPAP. HER HR HAD GONE UP TO 140S AND RR 30S. ASKED PT IF SHE WAS HAVING TROUBLE BREATHING. PT NODDED YES. PLACED ON BIPAP AND PT STARTED GETTING VERY ANXIOUS. HR UP TO 160, RR 50, SPO2 DOWN TO 85%. GAVE PT SOME FENTANYL TO HELP HER RELAX, BUT PT REMAINED AGITATED, HR AND RR STILL HIGH. CALLED DR. SNOW AND RECEIVED ORDER FOR VERSED. PT MORE RELAXED AFTER IT, BUT HR STILL 160 AND RR 50. CALLED RT TO BEDSIDE. CALLED DR. SNOW BACK. RECEIVED ORDER FOR ADDITIONAL VERSED AND LASIX, GIVEN. HR NOW 150S, RR HIGH 30S. RT GETTING ABG.
[2025-01-12 17:57] LABS: PCO2 Arterial 46.1 mmHg (35-45); PO2 Arterial 89.5 mmHg (80-100); pH Blood Arterial 7.43 (7.35-7.45)
--- NOTE | 2025-01-12 17:58 | NUR ---
SHIFT SUMMARY PT SPENT THE AFTERNOON NAPPING BECAUSE HE SAYS HE SLEPT VERY LITTLE LAST NIGHT. HE IS NOW SITTING UP AT THE EOB EATING DINNER. HE REMAINS ALERT AND ORIENTED, CLEAR LUNGS, RA, SR, SBP 160S. DENIES ANY CONCERNS AT THIS TIME.
[2025-01-12] MEDS ORDERED: Labetalol HCL 5 MG/ML 4ML Injection (Single Dose) IV ONE (19:20)
--- NOTE | 2025-01-12 23:57 | NUR ---
MD NOTIFICATION: SPOKE WITH DR. SNOW ON THE PHONE AT 5954 DUE TO THE FINDING OF UNEQUAL PUPILS IN THE PATIENT. THE RIGHT EYE IS 3MM AND THE LEFT IS 4/5MM. PATIENT IS NOT FOLLOWING COMMANDS AND IS LABILE. PER DR. SNOW THE PATIENT HAS BEEN LIKE THIS FOR THE PAST 2 DAYS AND THERE ARE NO NEW ORDERS.
[2025-01-13] VITALS (73 sets, daily range): BP systolic 70–139; BP diastolic 50–91
[2025-01-13] MEDS ORDERED: Acetaminophen 500 MG Tab PT PRN (00:25)
[2025-01-13] MEDS ORDERED: Metoprolol Tartrate 1 MG/ML 5 ML VIAL IV ONE (01:55)
--- NOTE | 2025-01-13 01:56 | NUR ---
PROVIDER NOTIFICATION: SPOKE WITH DR. CABRERA ON THE PHONE. THE PATIENTS HR HAS CLIMBED BACK UP TO THE 130'S. ORDERED 5 MG LOPRESSOR FOR A ONE TIME DOSE.
--- NOTE | 2025-01-13 03:51 | NUR ---
PROVIDER NOTIFICATION: SPOKE WITH DR. CABRERA ABOUT ADDING IBUPROFEN FOR THE PATIENT DUE TO THE FEVER NOT REPSONDING TO THE DOSE OF TYLENOL GIVEN EARLIER IN THE SHIFT. PER "GIVE 200 MG OF IBUPROFEN Q8 LONG KIDNEYS ARE OKAY". VERIFIED RENAL PANEL WITH CHARGE NURSE AND DID NOT PROCEED WITH THE ORDER DUE TO LAB VALUES.
[2025-01-13 04:56] LABS: Hematocrit 34.9 % (33.0-51.0); Hemoglobin 10.8 g/dL (11.5-16.0); Mean Corpuscular HGB 26.2 pg (26.0-34.0); Mean Corpuscular HGB Conc 30.9 g/dL (31.5-36.5); Mean Corpuscular Volume 85 fL (80-100); Mean Platelet Volume 10.9 fL (9.1-12.4); NRBC ABSOLUTE 0.03 K/mm3 (0.00-0.02); NRBC Auto 0.3 /100 WBC (0.0-0.2); Platelet Count 268 K/mm3 (150-400); RDW Coefficient Variation 16.7 % (11.7-14.2); RDW Standard Deviation 51.3 fL (35.1-46.3); Red Blood Cell Count 4.13 M/mm3 (3.80-5.20); White Blood Cell Count 11.38 K/mm3 (4.00-11.30)
[2025-01-13 05:13] LABS: Albumin, Blood 2.1 g/dL (3.4-5.0); Anion Gap 10 mmol/L (3-11); Blood Urea Nitrogen 45 mg/dL (8-24); Bun/Creatinine Ratio 26.9 (12.0-20.0); CO2, Blood 32 mmol/L (21-32); Calcium, Blood 7.9 mg/dL (8.5-10.1); Chloride, Blood 113 mmol/L (98-108); Creatinine, Blood 1.67 mg/dL (0.40-1.00); Glomerular Filtration Rate 36 (60-); Glucose, Blood 133 mg/dL (70-99); Phosphorus, Blood 2.1 mg/dL (2.5-4.9); Potassium, Blood 3.5 mmol/L (3.5-5.5); Sodium, Blood 151 mmol/L (136-145)
[2025-01-13 05:29] LABS: BAND PERCENT MAN 3 % (0-8); BASOPHILS PERCENT MAN 0 % (0-2); EOSINOPHILS PERCENT MAN 0 % (0-6); LYMPHOCYTES ABSOLUTE MAN 0.68 K/mm3 (0.84-5.20); LYMPHOCYTES PERCENT MAN 6 % (21-46); METAMYELOCYTE ABSOLUTE MAN 0.34 K/mm3 (0.00-0.00); METAMYELOCYTE PERCENT MAN 3 % (0-0); MONOCYTES ABSOLUTE MAN 0.22 K/mm3 (0.16-1.47); MONOCYTES PERCENT MAN 2 % (4-13); NEUTROPHILS ABSOLUTE MAN 10.12 K/mm3 (1.96-9.15); SEG NEUTROPHILS PERCENT MAN 86 % (41-73); TOTAL CELLS COUNTED 100
--- NOTE | 2025-01-13 05:34 | NUR ---
PROVIDER NOTIFICATION: LABWORK SPOKE WITH DR. CABRERA ON THE PHONE ABOUT THE LABWORK. PHOS IS 2.1 AND SODIUM IS 151. PER DR, INCREASE THE FREE WATER ON TUBE FEEDS TO 40ML Q4 HOURS AND REPEAT THE CHEMISTRY AT 1100 5/2.
--- NOTE | 2025-01-13 06:48 | NUR ---
SHIFT SUMMARY: PATIENT MENTAL STATUS CHANGED THROUGH THE SHIFT. STARTED OFF BEING ABLE TO NOD HER HEAD APPROPRIATE WHEN ASKED HER NAME AND WOULD FOLLOW COMMANDS FOR BLE BUT NOT BUE. PUPILS WERE EVEN AND BRISK. GRADUALLY BECAME MORE LABILE AND LETHARGIC, WENT FROM OPENING EYES SPONTANEOUSLY TO ONLY TO VERBAL. BY MIDNIGHT, NOTED PUPIL CHANGE AND UPDATED DR. SNOW, SEE NOTE. BY 0400 THE PUPILS WERE EVEN AND BRISK, EYES SPONTANEOUS BUT NOT FOLLOWING COMMANDS. STAYED ON THE BIPAP THROUGH THE NIGHT, NO CRACKLES NOTED BUT THERE WERE COARSE EXPIRATORY UPPER AND DIMINISHED LOWER. WEAK PRODUCTIVE COUGH. MONITOR SHOWS ST, RATE HOLDING BETWEEN 110-130. GAVE METOPROLOL AND LABETALOL, WITH ONLY SHORT TERM EFFECTS. 2/2 PULSES. TMAX 100.7 TEMPORAL. TYLENOL GIVEN X2. ABD IS MILDLY DISTENDED, HYPOACTIVE BT AND NO BM ON SHIFT. TF IS RUNNING AT GOAL. INCREASED FREE WATER FROM 30ML Q4 TO 40ML Q[address] CABRERA. AWRD IN PLACE WITH ADEQUATE UOP, PATENT AND TO GRAVITY. SKIN IS BLANCHABLE AND INTACT ASIDE FROM RONY-RECTAL WHICH HAS MASH AND DENUDING ALONG GLUTEAL CLEFT. MIDLINE AND PIV ARE PATENT AND INTACT. PATIENT WENT FOR A CT PE LAST NIGHT PER DR. SNOW.
--- NOTE | 2025-01-13 08:14 | NUR ---
[place] of Care: Care assumed at 0700hr. Patient minimally responsive. Attempts to open eyes and look at staff with verbal stimuli, otherwise not following any commands. Withdraws all extremities to painful stimuli. Pupils equal at 4-5mm and reactive to light. NOC hospitalist aware of patients condition per NOC RN. Patient on BiPAP at 14/7/40% with respiratory rate 50-52. SpO2 96-98%. Per NOC RN patient unable to tolerate breaks from BiPAP due very low air movement/work of breathing. HR shows sinus tach in the 130's, BP stable/wnl. Peripheral IV's x2 patent and intact. Rankin cath patent and intact, draining clear yellow urine. Call placed to Dr. Garland this morning to express concern for patient's condition/LOC, and possible need to intubate. Dr. Garland at bedside at this time for assessment, expressed likely intubation this morning. TF per Dobhoff at goal this morning, no s/s of GI intolerance. TF placed on hold at approx 0800hr per likely upcoming intubation.
--- NOTE | 2025-01-13 08:50 | NUR ---
INTUBATION 0850: Preparing for intubation. Dr Garland at bedside. RR 51 with tidal volumes 275-400 mL with BiPAP 14/7 and 40% FiO2. 0905: Dr Garland, primary RN RT Corinna Villaseñor and Sarah at bedside 0908: 4 mg versed given. 0908: 20 mg etomidate given. 0909: Successful intubation. #7.5 ETT, 25 cm at gums. SpO2 99%. ETCO2 41. Bilat breath sounds ausculated. No air over epigastrum.
[2025-01-13] MEDS ORDERED: Furosemide 10 MG/ML 4ML Vial IV SCH (09:00)
[2025-01-13] MEDS ORDERED: Protein Supplement 30 ML UD PT SCH (09:00)
[2025-01-13] MEDS ORDERED: Lactated Ringer's 1,000 ML IV ONE ×2 (09:06→09:10)
[2025-01-13] MEDS ORDERED: propofoL 100 ML IV ONE (09:06)
[2025-01-13] MEDS ORDERED: propofoL 100 ML IV SCH (09:10)
[2025-01-13 09:54] LABS: Base Excess Venous 9.2 mmol/L; Bicarbonate Venous 31.7 mmol/L (24.0-30.0); PCO2 Venous 42.9 mmHg (38-42); pH Blood Venous 7.49 (7.34-7.37)
[2025-01-13 10:27] LABS: Bun/Creatinine Ratio 28.3 (12.0-20.0); Calcium, Blood 7.7 mg/dL (8.5-10.1); Creatinine, Blood 1.8 mg/dL (0.40-1.00); Potassium, Blood 3.3 mmol/L (3.5-5.5)
[2025-01-13] MEDS ORDERED: Potassium Phosphate Dibasic 15 MM in Dextrose 5% 250 ML IV STA (11:58)
[2025-01-13] MEDS ORDERED: Hydrogen Peroxide 1.5 % Solution MT SCH (12:00)
[2025-01-13] MEDS ORDERED: Midazolam HCl 1MG / ML 2ML Vial ONE (12:10)
[2025-01-13] MEDS ORDERED: Midazolam HCl 1MG / ML 2ML Vial IV ONE ×2 (12:10→14:05)
[2025-01-13] MEDS ORDERED: FentaNYL Citrate 50 MCG/ML 2 ML Injection IV ONE (12:15)
[2025-01-13] MEDS ORDERED: Rocuronium Bromide 10 MG/ML 5ML Injection IV ONE (14:05)
[2025-01-13] MEDS ORDERED: Etomidate 2MG / ML 10ML Vial IV ONE (14:05)
[2025-01-13] MEDS ORDERED: Albumin (Human) 12.5gm/250ml 250 ML IV ONE ×2 (16:40→18:40)
[2025-01-13] MEDS ORDERED: Albumin Human 50 ML IV ONE (17:00)
--- NOTE | 2025-01-13 17:29 | NUR ---
Shift Summary: See previous note r/t intubation this morning at approx 0900hr. Patient had x1 episode of asynchrony and increased respirations at approx 1200hr. PRN fentanyl given and propofol gtt increased from 15 to 30mcg/kg/min. Patient has since tolerated vent without difficulty, spO2-96-97%, Vent to AC 20/400/5/40%. HR remains sinus tach in 125-130, Dr. Garland aware, treated with 1L LR and 250ml of 5% Albumin. BP remains stable with MAP's 65-70. PICC line placed to NATASHA per difficult and need for long-term access. Rankin cath remains patent and intact, draining clear yellow urine. Rectal tube placed late this afternoon per large amount of liquid brown stool. Will continue to monitor until report to NOC shift RN.
[2025-01-13] MEDS ORDERED: Phenylephrine HCl in 0.9% NaCl 250 ML IV SCH (18:40)
[2025-01-13] MEDS ORDERED: Cetylpyridinium Chloride 1 EA MISC MT SCH (20:00)
[2025-01-14] VITALS (93 sets, daily range): BP systolic 87–157; BP diastolic 51–89
[2025-01-14 04:44] LABS: Anion Gap 11 mmol/L (3-11); Blood Urea Nitrogen 61 mg/dL (8-24); Bun/Creatinine Ratio 26.4 (12.0-20.0); CO2, Blood 28 mmol/L (21-32); Calcium, Blood 7.1 mg/dL (8.5-10.1); Chloride, Blood 114 mmol/L (98-108); Creatinine, Blood 2.31 mg/dL (0.40-1.00); Glomerular Filtration Rate 24 (60-); Glucose, Blood 96 mg/dL (70-99); Magnesium, Blood 2.2 mg/dL (1.6-2.4); Phosphorus, Blood 3.6 mg/dL (2.5-4.9); Sodium, Blood 150 mmol/L (136-145)
[2025-01-14] MEDS ORDERED: Potassium Chloride 40 MEQ in NS 250 ML IV ONE (06:30)
[2025-01-14] MEDS ORDERED: CALCIUM GLUC IN NACL, ISO-OSM 50 ML IV ONE (06:30)
--- NOTE | 2025-01-14 06:30 | NUR ---
SHIFT SUMMARY REMAINS INTUBATED- AC/VC 20/400/5/35%. RR 20s. SEDATED WITH PROPOFOL AT 30MCG/KG/MIN. OPENS EYES TO STIMULI AND OCCASIONALLY SPONTANEOUSLY. TRACKS WITH EYES. WITHDRAWS EXTREMITIES TO NOXIOUS STIMULI. MOVES BILATERAL UPPER EXTREMITIES WEAKLY AND SPONTANEOUSLY, RIGHT BETTER THAN LEFT. MEDICATED WITH FENTANYL 50MCG IV X 1 DOSE FOR CPOT 3. MONITOR SHOWS NSR-ST, RATE 90s-120s DURING NOC. HR NOW 104. PHENYLEPHRINE TITRATED 20-80MCG/MIN TO MAINTAIN MAP >65. NOW INFUSING AT 70MCG/MIN. TMAX 99.8F. DOBHOFF WITH VITAL HIGH PROTEIN AT GOAL RATE OF 40MLS/HR. 200ML H20 FLUSH Q4H. RECTAL TUBE IN PLACE WITH LIQUID BROWN STOOL. SKIN AROUND RECTAL AREA IS RED, EXCORIATED. WARD PATENT AND DRAINING TO GRAVITY, 355MLS TOTAL. NATASHA PICC AND ZULEIMA POWERGLIDE PATENT, LILIYA C/D/I. PLAN OF CARE ONGOING. WILL REPORT TO ONCOMING RN WHEN AVAILABLE.
[2025-01-14] MEDS ORDERED: Protein Supplement 30 ML UD PT SCH (09:00)
[2025-01-14] MEDS ORDERED: Potassium Chloride 20 MEQ/15 ML UDC PO ONE (09:50)
[2025-01-14] MEDS ORDERED: Potassium Chloride 20 MEQ/15 ML UDC PT ONE (11:25)
--- NOTE | 2025-01-14 17:51 | NUR ---
SHIFT SUMMARY NO ACUTE CHANGES THIS SHIFT. PT HAS REMAINED INTUBATED AND ON PRESSURE SUPPORT 14/5, FIO2 30% THROUGHOUT THE DAY. PT WITH LARGE AMOUNT OF THICK, ALANIZ SECRETIONS WITH ETT SUCTION. PROPOFOL ON STANDBY SINCE THIS AM. PT HAS REMAINED AWAKE AND ALERT, BUT UNABLE TO FOLLOW COMMANDS. PT WITH SPONTANEOUS MOVEMENT IN ALL EXTREMITIES AND ATTEMPTS TO REACH FOR ETT. SBW RESTRAINTS IN PLACE. PICC TO NATASHA C/D/I. NS INFUSING TKO. NEOSYNEPHRINE TITRATED OFF THIS SHIFT. VITAL SIGNS HAVE REMAINED STABLE. PG TO ZULEIMA SALINE LOCKED. DOBHOFF REMAINS IN PLACE WITH TF INFUSING AT GOAL RATE. PT WITH CONTNUOUS LIQUID BROWN BMS'S THIS SHIFT. RECTAL TUBE UNSUCCESSFUL. PT WITH LARGE AREA OF PERIANAL REDDNESS DUE TO CONTINUOUS INCONTINENCE OF BM'S. NO FAMILY AT BEDSIDE THIS SHIFT. WILL CONTINUE TO MONITOR AND REPORT OFF TO ONCOMING RN.
--- NOTE | 2025-01-14 19:00 | NUR ---
ASSUMED CARE ASSUMED CARE OF PATIENT. AWAKE AND ALERT. MAKES EYE CONTACT AND TRACKS WITH EYES. FOLLOWS SIMPLE COMMANDS TO SQUEEZE HANDS, WIGGLE TOES. MOVES ALL EXTREMITIES EQUALLY AND WEAKLY. BILATERAL WRIST RESTRAINTS IN PLACE TO PREVENT SELF-EXTUBATION. REMAINS INTUBATED- PS 10, PEEP 5, FIO2 30%. RR MID-20s. BP WNL. MONITOR SHOWS ST, RATE 105-115. AFEBRILE. DOBHOFF IN PLACE- 65CM. VITAL HIGH PROTEIN INFUSING AT GOAL RATE OF 40MLS/HR. 200ML H2O FLUSH Q4H PER ORDER. WARD PATENT AND DRAINING TO GRAVITY- YELLOW URINE. PICC LINE PATENT TO LUKASZ EVANGELISTAG C/D/I. POWERGLIDE INTACT TO ZULEIMA- TONJAG C/D/I.
[2025-01-14] MEDS ORDERED: Nystatin 100,000 Unit/GM CREAM 15 GM TOP SCH (23:10)
[2025-01-15] VITALS (51 sets, daily range): BP systolic 83–142; BP diastolic 51–103
[2025-01-15 02:41] LABS: Adenovirus F 40/41 Not Detected (NOT DETECT); Astrovirus Not Detected (NOT DETECT); Campylobacter Sp Not Detected (NOT DETECT); Cryptosporidium Not Detected (NOT DETECT); Cyclospora Cayetanensis Not Detected (NOT DETECT); E. Coli O157 Not Detected (NOT DETECT); Entamoeba Histolytica Not Detected (NOT DETECT); Enteroaggregative E. coli-EAEC Not Detected (NOT DETECT); Enteropathogenic E. coli-EPEC Not Detected (NOT DETECT); Enterotoxigenic E. coli-ETEC Not Detected (NOT DETECT); Giardia Lamblia Not Detected (NOT DETECT); Norovirus GI/GII Not Detected (NOT DETECT); Plesiomonas Shigelloides Not Detected (NOT DETECT); Rotavirus A Not Detected (NOT DETECT); Salmonella Sp Not Detected (NOT DETECT); Sapovirus Not Detected (NOT DETECT); Shiga Toxin-prod E. coli-STEC Not Detected (NOT DETECT); Shigella/Enteroin E. coli-EIEC Not Detected (NOT DETECT); Vibrio Cholerae Not Detected (NOT DETECT); Vibrio Sp Not Detected (NOT DETECT); Yersinia Enterocolitica Not Detected (NOT DETECT)
[2025-01-15] MEDS ORDERED: Vancomycin HCL 250 MG/5 ML 5ML Oral Syringe PO SCH (02:50)
[2025-01-15] MEDS ORDERED: Vancomycin HCL 250 MG/5 ML 5ML Oral Syringe PT SCH (03:16)
[2025-01-15 03:55] LABS: Base Excess Venous 3.4 mmol/L; Bicarbonate Venous 27.2 mmol/L (24.0-30.0); PCO2 Venous 35.8 mmHg (38-42); pH Blood Venous 7.48 (7.34-7.37)
[2025-01-15 04:05] LABS: BASOPHILS ABSOLUTE AUTO 0.02 K/mm3 (0.00-0.23); BASOPHILS PERCENT AUTO 0 % (0-2); EOSINOPHILS ABSOLUTE AUTO 0.27 K/mm3 (0.00-0.68); EOSINOPHILS PERCENT AUTO 2 % (0-6); Hematocrit 25.9 % (33.0-51.0); Hemoglobin 7.8 g/dL (11.5-16.0); IMMATURE GRAN ABSOLUTE AUTO 0.31 K/mm3 (0.00-0.10); IMMATURE GRAN PERCENT AUTO 3 % (0-1); LYMPHOCYTES ABSOLUTE AUTO 1.13 K/mm3 (0.84-5.20); LYMPHOCYTES PERCENT AUTO 10 % (21-46); MONOCYTES ABSOLUTE AUTO 0.31 K/mm3 (0.16-1.47); MONOCYTES PERCENT AUTO 3 % (4-13); Mean Corpuscular HGB 25.6 pg (26.0-34.0); Mean Corpuscular HGB Conc 30.1 g/dL (31.5-36.5); Mean Corpuscular Volume 85 fL (80-100); Mean Platelet Volume 11.3 fL (9.1-12.4); NEUTROPHILS PERCENT AUTO 82 % (41-73); Platelet Count 168 K/mm3 (150-400); RDW Coefficient Variation 16.9 % (11.7-14.2); RDW Standard Deviation 52.7 fL (35.1-46.3); Red Blood Cell Count 3.05 M/mm3 (3.80-5.20); White Blood Cell Count 11.24 K/mm3 (4.00-11.30)
[2025-01-15 04:24] LABS: Albumin, Blood 1.9 g/dL (3.4-5.0); Anion Gap 12 mmol/L (3-11); Blood Urea Nitrogen 70 mg/dL (8-24); Bun/Creatinine Ratio 28.3 (12.0-20.0); CO2, Blood 25 mmol/L (21-32); Calcium, Blood 7.3 mg/dL (8.5-10.1); Chloride, Blood 116 mmol/L (98-108); Creatinine, Blood 2.47 mg/dL (0.40-1.00); Glomerular Filtration Rate 22 (60-); Glucose, Blood 117 mg/dL (70-99); Phosphorus, Blood 3.4 mg/dL (2.5-4.9); Potassium, Blood 3.7 mmol/L (3.5-5.5); Sodium, Blood 149 mmol/L (136-145)
--- NOTE | 2025-01-15 06:05 | NUR ---
SHIFT SUMMARY REMAINS INTUBATED. SWITCHED FROM PS VENTILATION TO AC/VC 18/400/5/30% AT 2300. PROPOFOL 20MCG/KG/MIN STARTED AT MIDNIGHT D/T INCREASED RESTLESSNESS. NOW INFUSING AT 10MCG/KG/MIN. BILATERAL SOFT WRIST RESTRAINTS IN PLACE TO PREVENT SELF-EXTUBATION. ROUSES TO STIMULI. FOLLOWS SIMPLE COMMANDS. MOVES ALL EXTREMITIES SPONTANEOUSLY. INSURANCE ADJUSTOR ARE EQUAL BILATERALLY. MARILIN, 4MM. MEDICATED WITH FENTANYL 50MCG IV X 2 DOSES FOR CPOT 5. MONITOR SHOWS ST, RATE 100-110s. BP WITH MAP >65. AFEBRILE. DOBHOFF WITH VITAL HIGH PROTEIN AT GOAL RATE OF 40MLS/HR. 200ML H20 FLUSH Q4H PER ORDER. INCONTINENT OF LOOSE STOOL. STOOL SPECIMEN SENT TO LAB- POSITIVE FOR C.DIFF. WARD PATENT AND DRAINING TO GRAVITY. PERIANAL/RONY AREA IS REDDENED AND TENDER. SCDs TO BLE. NATASHA PICC PATENT, DRSG C/D/I. ZULEIMA POWERGLIDE PATENT, DRSG C/D/I. PLAN OF CARE ONGOING. WILL REPORT TO ONCOMING RN WHEN AVAILABLE.
[2025-01-15] MEDS ORDERED: Enoxaparin 30 MG/0.3 ML SYR SC SCH (09:00)
[2025-01-15] MEDS ORDERED: Furosemide 10 MG / ML 2ML Vial IV ONE (10:05)
[2025-01-15] MEDS ORDERED: Albumin Human 50 ML IV ONE (10:10)
[2025-01-15] MEDS ORDERED: Acetaminophen 160MG / 5ML 10.15 UDC PT PRN (11:55)
[2025-01-15 12:13] LABS: Hematocrit 25.4 % (33.0-51.0); Hemoglobin 7.8 g/dL (11.5-16.0)
[2025-01-15 12:17] LABS: Source, Urine Foley catheter
[2025-01-15 12:20] LABS: Appearance, Urine Hazy (Clear); Bilirubin, Urine Neg (Neg); Blood, Urine 3+ (Neg); Glucose Qualitative, Urine Neg (Neg); Ketones, Urine Neg (Neg); Leukocyte Esterase, Urine 3+ (Neg); Nitrite, Urine Neg (Neg); Protein, Urine 2+ (Neg); Specific Gravity, Urine 1.005 (1.003-1.022); Urobilinogen, Urine NORM (Normal)
[2025-01-15 12:21] LABS: Color, Urine Pale Yellow (P-Yellow)
[2025-01-15 12:30] LABS: Amorphous Light (0-Heavy); Bacteria Mod /hpf; Granular Casts 0-2 /lpf (0); Yeast/Fungi Urine Many /hpf
[2025-01-15 12:31] LABS: Red Blood Cells, Urine 0-2 /hpf (0-2); Renal Epithelial Rare /hpf (0-Rare); Squamous Epithelial Cells Rare /hpf (Few); Transitional Epithelial Cells Few /hpf (0-Rare)
--- NOTE | 2025-01-15 12:50 | NUR ---
REASSESSMENT PT REMAINS ON THE VENTILATOR, BUT ON SPONTANEOUS MODE. SHE IS ALERT, OFF OF SEDATION, CALM. SHE SOMETIMES FOLLOWS DIRECTIONS VERY PROMPTLY, SOMETIMES HAS A DELAY, AND OTHER TIMES WON'T FOLLOW DIRECTIONS AT ALL, EVEN WITH LOTS OF ENCOURAGMENT. SHE HAS MOVED ALL FOUR EXTREMITIES TO COMMAND TODAY. LUNGS GO BETWEEN COARSE AND CLEAR DEPENDING ON WHEN SHE WAS LAST SUCTIONED. COPIOUS AMOUNT OF THICK, OFF WHITE SECRETIONS SUCTIONED FROM ETT THIS AFTERNOON. LARGE AMT OF THICK OFF WHITE SECRETIONS SUCTIONED FROM THE BACK OF HER THROAT THIS MORNING. SINUS TACH IN THE 130S CURRENTLY, HAS BEEN 120S THROUGHOUT THE MORNING. TEMP 101.4F, DR. SUERO NOTIFIED, BC AND UA REPEATED, TYLENOL GIVEN. 2 VERY LOOSE STOOLS THIS MORNING. BARRIER CREAM APPLIED TO SKIN ON BOTTOM WITH EACH CLEANING. PT'S MOTHER CALLED AND WAS UPDATED.
--- NOTE | 2025-01-15 17:12 | NUR ---
SHIFT SUMMARY PT REMAINS INTUBATED, OFF OF SEDATION. PT IS CALM, ALERT BUT WITHDRAWN. STILL INCONSISTENT IN HER RESPONSES. LUNGS HAVE BEEN COARSE AT TIMES. COPIOUS AMOUNTS OF SPUTUM FROM THE ETT THIS AFTERNOON. SINUS TACH UP TO 130S HER FEVER THIS AFTERNOON, NOW BACK DOWN TO LOW 100S. MAP >65 THROUGHOUT THE DAY. TOLERATING TUBE FEEDS. 3 LOOSE STOOLS TODAY.
[2025-01-16] VITALS (39 sets, daily range): BP systolic 92–151; BP diastolic 53–79
[2025-01-16 04:21] LABS: BASOPHILS ABSOLUTE AUTO 0.01 K/mm3 (0.00-0.23); BASOPHILS PERCENT AUTO 0 % (0-2); EOSINOPHILS ABSOLUTE AUTO 0.14 K/mm3 (0.00-0.68); EOSINOPHILS PERCENT AUTO 1 % (0-6); Hematocrit 24.1 % (33.0-51.0); Hemoglobin 7.6 g/dL (11.5-16.0); IMMATURE GRAN ABSOLUTE AUTO 0.22 K/mm3 (0.00-0.10); IMMATURE GRAN PERCENT AUTO 2 % (0-1); LYMPHOCYTES ABSOLUTE AUTO 1.13 K/mm3 (0.84-5.20); LYMPHOCYTES PERCENT AUTO 11 % (21-46); MONOCYTES ABSOLUTE AUTO 0.25 K/mm3 (0.16-1.47); MONOCYTES PERCENT AUTO 3 % (4-13); Mean Corpuscular HGB 26.2 pg (26.0-34.0); Mean Corpuscular HGB Conc 31.5 g/dL (31.5-36.5); Mean Corpuscular Volume 83 fL (80-100); Mean Platelet Volume 11.1 fL (9.1-12.4); NEUTROPHILS ABSOLUTE AUTO 8.26 K/mm3 (1.96-9.15); NEUTROPHILS PERCENT AUTO 83 % (41-73); NRBC ABSOLUTE 0.02 K/mm3 (0.00-0.02); NRBC Auto 0.2 /100 WBC (0.0-0.2); Platelet Count 164 K/mm3 (150-400); RDW Coefficient Variation 16.6 % (11.7-14.2); RDW Standard Deviation 50.9 fL (35.1-46.3); White Blood Cell Count 10.01 K/mm3 (4.00-11.30)
[2025-01-16 04:40] LABS: Albumin, Blood 1.9 g/dL (3.4-5.0); Albumin/Globulin Ratio 0.7 (0.8-1.8); Bilirubin, Total 0.3 mg/dL (0.1-1.0); Bun/Creatinine Ratio 26.6 (12.0-20.0); Calcium, Blood 7.7 mg/dL (8.5-10.1); Creatinine, Blood 2.63 mg/dL (0.40-1.00); Globulin, Blood 2.9 g/dL (2.2-4.0); Potassium, Blood 3.5 mmol/L (3.5-5.5); Total Protein, Blood 4.8 g/dL (6.4-8.2)
--- NOTE | 2025-01-16 06:33 | NUR ---
SHIFT SUMMARY PT HAS TOLERATED SHIFT WITH NO CHANGES IN STATUS. PT HAD RECTAL TUBE PLACED AT BEGINNING OF SHIFT THAT HAS REMAINED IN PLACE THROUGHOUT. PT ABLE TO ANSWER YES NO QUESTIONS AND IS RESPONDING TO COMMANDS. PTS VITALS HAVE REMAINED WNL. WILL CONTINUE TO MONITOR UNTIL REPORT PASSED TO DAY SHIFT TEAM.
--- NOTE | 2025-01-16 08:48 | NUR ---
THIS RN ASSUMED CARE OF PT AT 0700. PT IS INTUBATED AND HAS BEEN OFF SEDATION FOR A COUPLE DAYS NOW. PT IS ABLE TO SHAKE HEAD TO YES AND NO QUESTIONS BUT STILL A LITTLE SLOW TO ANSWER, WAS ABLE TO FOLLOW INTERMITTENT COMMANDS. PT HEART RATE IN THE 115-130s, BLOOD PRESSURE STABLE AT 119/68, NO OBJECTIVE S/S OF CHEST PAIN, WAS NOT ABLE TO SHAKE HEAD NO OR YES TO CHEST PAIN. PT IS ON VENTILATOR, ON SBT AT 0815, SATTING >90%, PT SOUNDS CLEAR/DIMINISHED. PT HAS WARD CATHETER DRAINING TO GRAVITY. PICC LINE IS CLEAN/DRY/INTACT. PT HAS RECTAL TUBE DRAINING TO GRAVITY. LOVENOX WAS GIVEN PER EVEN WITH LOWERING HGB. PT HAS PIVOT RUNNING AT GOAL. NO OTHER INTERVENTIONS AT THIS TIME. PLAN OF CARE CONTINUED.
[2025-01-16] MEDS ORDERED: Piperacillin/Tazobactam Sod 3.375 GM in NS 100 ML IV SCH (09:00)
--- NOTE | 2025-01-16 14:22 | NUR ---
CASE CONFERENCE: SPOKE WITH PT'S MOM ANABELL BY PHONE TODAY. SHE IS THE PT'S PRIMARY DECISION-MAKER. SHE STATED SHE IS PLEASED THAT PT IS AWAKE AND OFF SEDATION. RELAYED TO HER THAT DR. BAKER LIKELY TO EXTUBATE PT TOMORROW IF HER CONDITION REMAINS STABLE. ANABELL STATES SHE DOESN'T CURRENTLY HAVE A VEHICLE, SO SHE WON'T BE COMING TO VISIT TOMORROW, BUT WOULD LIKE A CALL WITH AN UPDATE TOMORROW ONCE PT IS EXTUBATED. PLAN TO CALL HER WITH AN UPDATE AFTER EXTUBATION.
--- NOTE | 2025-01-16 18:09 | NUR ---
PT SUMMARY PT WAS BREATHING INTO THE 60s, AND SOUNDING MORE COURSE THROUGHOUT, WAS CALLED, PROVIDER DID NOT WANT TO DIURESIS DUE TO ELEVATED CREATININE, AND DID NOT WANT TO ADJUST PT 200 ML Q4HR FLUSH DUE TO ELEVATED SODIUM LEVEL, PROVIDER SAID TO PUT PT BACK ON FULL SUPPORT AND START SEDATION. NO OTHER ACUTE EVENTS TO REPORT THROUGHOUT THE DAY, PT HAVING GOOD URINE OUTPUT, WARD STILL DRAINING TO GRAVITY AND RECTAL BAG DRAINING TO GRAVITY. PT HEART RATE STILL IN THE 120s-140s, AWARE. NO OTHER INTERVENTIONS AT THIS TIME. PLAN OF CARE CONTINUED.
[2025-01-17] VITALS (54 sets, daily range): BP systolic 91–154; BP diastolic 55–90
[2025-01-17 04:23] LABS: BASOPHILS ABSOLUTE AUTO 0.02 K/mm3 (0.00-0.23); BASOPHILS PERCENT AUTO 0 % (0-2); EOSINOPHILS ABSOLUTE AUTO 0.15 K/mm3 (0.00-0.68); EOSINOPHILS PERCENT AUTO 2 % (0-6); Hematocrit 23.6 % (33.0-51.0); Hemoglobin 7.3 g/dL (11.5-16.0); IMMATURE GRAN ABSOLUTE AUTO 0.18 K/mm3 (0.00-0.10); IMMATURE GRAN PERCENT AUTO 2 % (0-1); LYMPHOCYTES ABSOLUTE AUTO 1.69 K/mm3 (0.84-5.20); LYMPHOCYTES PERCENT AUTO 17 % (21-46); MONOCYTES ABSOLUTE AUTO 0.46 K/mm3 (0.16-1.47); MONOCYTES PERCENT AUTO 5 % (4-13); Mean Corpuscular HGB Conc 30.9 g/dL (31.5-36.5); Mean Corpuscular Volume 84 fL (80-100); Mean Platelet Volume 10.5 fL (9.1-12.4); NEUTROPHILS ABSOLUTE AUTO 7.39 K/mm3 (1.96-9.15); NEUTROPHILS PERCENT AUTO 75 % (41-73); Platelet Count 171 K/mm3 (150-400); RDW Coefficient Variation 16.5 % (11.7-14.2); Red Blood Cell Count 2.81 M/mm3 (3.80-5.20); White Blood Cell Count 9.89 K/mm3 (4.00-11.30)
[2025-01-17 04:41] LABS: Bun/Creatinine Ratio 26.8 (12.0-20.0); Calcium, Blood 7.7 mg/dL (8.5-10.1); Creatinine, Blood 2.69 mg/dL (0.40-1.00); Potassium, Blood 3.5 mmol/L (3.5-5.5)
--- NOTE | 2025-01-17 05:02 | NUR ---
SHIFT SUMMARY PT HAS TOLERATED SHIFT WITH NO SIGNIFICANT CHANGES IN STATUS. PT HAS NEEDED FENTANYL PUSHES FREQUENTLY THROUGHOUT NIGHT, PT HAS SHAKEN HEAD CONFIRMING SHE IS IN PAIN WHEN ASKED. PT HAS TOLERATED VENT WELL AND SECRETIONS FROM ETT TUBE SEEM TO BE LOOSENING SINCE BEGINNING OF SHIFT. WILL CONTINUE TO MONITOR UNTIL REPORT PASSED TO DAY SHIFT TEAM.
--- NOTE | 2025-01-17 08:00 | NUR ---
Barry of care: She is awake & follows commands. Nods appropriately. Is on 5 mcgs/kg/min of propofol. In low sinus tach at 105-110. Blood pressures stable. 7.5 ETT at 25 cm. ON ACVC 18/400/5/30%. Lung sounds clear. TF infusing at goal. Rankin & rectal tube in place. PICC & powerglide. Will continue to monitor.
[2025-01-17] MEDS ORDERED: Furosemide 10 MG/ML 4ML Vial IV ONE (09:00)
--- NOTE | 2025-01-17 17:40 | NUR ---
Shift summary: Alert, calm, oriented to self but otherwise confused. Follows commands weakly. A bit difficult to understand d/t hoarseness of voice. In sinus tach 115-120 most of the day. Blood pressures stable. Extubated at 10:30 to 2L NC. Clear lung sounds but has some upper airway congestion that has cleared with a few rounds of deep oropharyngeal suctioning - thick, vee, mildly bloody secretions. Rectal tube & neves in place. TF infusing at goal. PICC & PIV. Up to chair for a couple of hours with the lift & also worked with PT. Mom updated by phone on her progress today. Will continue to monitor.
--- NOTE | 2025-01-17 19:30 | NUR ---
ASSUMED CARE ASSUMED CARE OF PATIENT AT 1900. PT IS AWAKE AND ALERT. SPEECH IS MUMBLED AND SOFT. ORIENTED TO SELF AND TO THE FACT THAT SHE IS IN THE HOSPITAL, BUT CAN NOT SAY WHERE. DISORIENTED TO TIME/DATE. MOVES ALL EXTREMITIES WEAKLY AND EQUALLY. FOLLOWS COMMANDS. DENIED C/O PAIN AT THIS TIME. MONITOR SHOWS ST, RATE 115-120. BP STABLE. AFEBRILE. O2 3L NC- SATS STABLE. DOBHOFF WITH PIVOT 1.5 INFUSING AT GOAL RATE OF 40MLS/HR. 200ML H20 FLUSH Q4H PER ORDER. WARD PATENT AND DRAINING TO GRAVITY- YELLOW URINE. ZULEIMA PICC PATENT, DRSG C/D/I. NATASHA POWERGLIDE PATENT, DRSG C/D/I. SCDs TO BLE. PT REMAINS IN CONTACT ISOLATION FOR C.DIFF. SEE SHIFT ASSESSMENT FOR FULL ASSESSMENT.
[2025-01-18] VITALS (19 sets, daily range): BP systolic 120–167; BP diastolic 70–87
[2025-01-18] MEDS ORDERED: ALPRAZolam 0.25 MG Tab PT ONE (04:25)
[2025-01-18 05:03] LABS: Base Excess Venous 2.2 mmol/L; PCO2 Venous 40.8 mmHg (38-42); pH Blood Venous 7.42 (7.34-7.37)
[2025-01-18 05:05] LABS: BASOPHILS ABSOLUTE AUTO 0.03 K/mm3 (0.00-0.23); BASOPHILS PERCENT AUTO 0 % (0-2); EOSINOPHILS ABSOLUTE AUTO 0.15 K/mm3 (0.00-0.68); EOSINOPHILS PERCENT AUTO 1 % (0-6); Hematocrit 25.2 % (33.0-51.0); Hemoglobin 7.7 g/dL (11.5-16.0); IMMATURE GRAN ABSOLUTE AUTO 0.25 K/mm3 (0.00-0.10); IMMATURE GRAN PERCENT AUTO 2 % (0-1); LYMPHOCYTES ABSOLUTE AUTO 1.99 K/mm3 (0.84-5.20); LYMPHOCYTES PERCENT AUTO 15 % (21-46); MONOCYTES ABSOLUTE AUTO 0.64 K/mm3 (0.16-1.47); MONOCYTES PERCENT AUTO 5 % (4-13); Mean Corpuscular HGB 25.8 pg (26.0-34.0); Mean Corpuscular HGB Conc 30.6 g/dL (31.5-36.5); Mean Corpuscular Volume 84 fL (80-100); Mean Platelet Volume 10.7 fL (9.1-12.4); NEUTROPHILS ABSOLUTE AUTO 10.61 K/mm3 (1.96-9.15); NEUTROPHILS PERCENT AUTO 78 % (41-73); Platelet Count 250 K/mm3 (150-400); RDW Coefficient Variation 16.2 % (11.7-14.2); Red Blood Cell Count 2.99 M/mm3 (3.80-5.20); White Blood Cell Count 13.67 K/mm3 (4.00-11.30)
[2025-01-18 05:25] LABS: Bun/Creatinine Ratio 31.7 (12.0-20.0); Creatinine, Blood 2.52 mg/dL (0.40-1.00); Potassium, Blood 3.6 mmol/L (3.5-5.5)
--- NOTE | 2025-01-18 05:53 | NUR ---
SHIFT SUMMARY NO ACUTE CHANGES DURING NOC. SLEPT VERY LITTLE. ORIENTED TO SELF AND TO THE FACT THAT SHE IS IN THE HOSPITAL. NOT ORIENTED TO CITY, DATE, OR TIME. SPEECH IS SOFT AND MUMBLED. ANXIOUS AT TIMES. MEDICATED WITH XANAX 0.25MG PT X 1 DOSE. MEDICATED WITH FENTANYL 50MCG IV X 4 DOSES FOR C/O "ALL OVER" PAIN. MONITOR SHOWS ST, RATE 110-120s. BP STABLE. AFEBRILE. O2 SATS STABLE WITH O2 3L NC. PT BECOMES DYSPNEIC AT TIMES- INCREASED WITH ANXIETY. WEAK COUGH. DEEP SUCTIONING DONE X 1 BY RT. ENCOURAGED USE OF FLUTTER VALVE, BUT EFFORT IS WEAK. DOBHOFF WITH PIVOT 1.5 AT GOAL RATE OF 40MLS/HR. 200MLS H20 FLUSH Q4H PER ORDER. RECTAL TUBE IN PLACE WITH LOOSE/LIQUID BROWN STOOL. WARD PATENT AND DRAINING TO GRAVITY. ZULEIMA PICC LINE PATENT, DRSG C/D/I. NATASHA POWERGLIDE PATENT, DRSG C/D/I. EVELIA TKO. PLAN OF CARE ONGOING. WILL REPORT TO ONCOMING RN WHEN AVAILABLE.
--- NOTE | 2025-01-18 09:18 | NUR ---
AM NOTE... ASSUMED CARE OF PT AT 0700, PT IS A&O TO SELF, STAFF AND FOLLOWING COMMANDS. SPEECH IS SLOW AND MUMBLED. PT IS ON 3L NC WITH O2 SATS>92%. L/S VERY COARSE RHONCHI T/O DIM AND COARSE IN THE BILATERAL BASES. PT HAS A VERY WEAK COUGH WITH THICK ALANIZ/PINK SECRETIONS WHEN THE PT IS ABLE TO COUGH THEM UP. PT IS IN ST IN THE 100'S-120'S BP IS STABLE WITH MAPS>65. PT HAS 1+ EDEMA TO HER BLE, DEPENDENT EDEMA IS NOTED TO THE PT'S LABIA. DOBHOFF IS IN PLACE 65CM AT THE RIGHT NARE WITH TF RUNNING AT 40MLS/HR WHICH IS GOAL. BT ARE PRESENT AND HYPOACTIVE, PT HAS A RECTAL TUBE THAT IS PATENT AND DRAINING LIQUID BROWN/GREEN STOOLS TO GRAVITY. TEMP WARD IS IN PLACE DRAINING CLEAR YELLOW URINE TO GRAVITY.
[2025-01-18] MEDS ORDERED: HYDROcodone 5-APAP 325 TAB PO PRN (09:20)
--- NOTE | 2025-01-18 10:23 | NUR ---
Spiritual Care Visit. As pt. identifies coming from a Religious background, this push connector assembler asked the Pt. if she would want to have this push connector assembler contact the [facility] Liaison. Pt. clearly communicated "No". pt. displayed evidence of understanding. This push connector assembler remains available to the Pt.
[2025-01-18] MEDS ORDERED: Piperacillin/Tazobactam Sod 3.375 GM in NS 100 ML IV SCH (16:00)
--- NOTE | 2025-01-18 18:26 | NUR ---
SHIFT SUMMARY.... PT'S VS HAVE BEEN STABLE T/O THIS SHIFT. PT HAS BEEN TITRATED DOWN FROM 3L NC TO RA THE PAST HOUR. L/S CONTINUE TO BE VERY COARSE BUT PT'S COUGH HAS IMPROVED AND SHE IS ABLE TO CLEAR MORE SECRETIONS. PT'S VOICE IS ALSO STRONGER THAN FIRST THING THIS MORNING. PT WAS UP IN THE CHAIR FOR SEVERAL HOURS THIS SHIFT. RECTAL TUBE WAS D/C'D PER ORDERS AND PER THE PT'S COMFORT. PT HAS NOT HAD A BM SINCE THE RECTAL TUBE WAS D/C'D AROUND 1200. PT HAS BEEN MEDICATED FOR PAIN PER EMAR WITH GOOD RESULTS. TUBE FEEDS CONTINUE TO RUN PER ORDERS. WARD IS PATENT AND DRAINING TO GRAVITY.
[2025-01-19] VITALS (8 sets, daily range): BP systolic 109–144; BP diastolic 59–81
[2025-01-19 03:33] LABS: BASOPHILS ABSOLUTE AUTO 0.04 K/mm3 (0.00-0.23); BASOPHILS PERCENT AUTO 0 % (0-2); EOSINOPHILS ABSOLUTE AUTO 0.16 K/mm3 (0.00-0.68); EOSINOPHILS PERCENT AUTO 1 % (0-6); Hematocrit 22.9 % (33.0-51.0); Hemoglobin 6.9 g/dL (11.5-16.0); IMMATURE GRAN ABSOLUTE AUTO 0.21 K/mm3 (0.00-0.10); IMMATURE GRAN PERCENT AUTO 2 % (0-1); LYMPHOCYTES ABSOLUTE AUTO 2.11 K/mm3 (0.84-5.20); LYMPHOCYTES PERCENT AUTO 19 % (21-46); MONOCYTES ABSOLUTE AUTO 0.62 K/mm3 (0.16-1.47); MONOCYTES PERCENT AUTO 6 % (4-13); Mean Corpuscular HGB 25.6 pg (26.0-34.0); Mean Corpuscular HGB Conc 30.1 g/dL (31.5-36.5); Mean Corpuscular Volume 85 fL (80-100); Mean Platelet Volume 10.1 fL (9.1-12.4); NEUTROPHILS PERCENT AUTO 72 % (41-73); Platelet Count 268 K/mm3 (150-400); RDW Coefficient Variation 16.4 % (11.7-14.2); RDW Standard Deviation 50.6 fL (35.1-46.3); White Blood Cell Count 11.24 K/mm3 (4.00-11.30)
[2025-01-19 03:53] LABS: Calcium, Blood 7.8 mg/dL (8.5-10.1); Creatinine, Blood 2.28 mg/dL (0.40-1.00); Potassium, Blood 3.4 mmol/L (3.5-5.5)
--- NOTE | 2025-01-19 05:19 | NUR ---
SHIFT SUMMARY PT A/OX3, RESPONDS APPROPRIATLY, FOLLOWS COMMANDS, MAKES NEEDS KNOWN. ON 3L NC, SATS >90%, RHONCHI HEARD T/O, HAS LOTS OF SECRETIONS AND A WEAK COUGH. PT WAS NT SUCTIONED BY RT, COPIOUS AMOUNT OF BLOODY SECRETIONS SUCTIONED. ON COMMUTATOR PRESSER, HR 90-100'S, MAPS >65. PT HAD ONE LARGE LIQUID BM THIS SHIFT, LINEN CHANGE DONE. WARD PULLED W/O COMPLICATION, ATTENDS IN PLACE. GOOD UOP. EXCORIATION IN RONY AREA NOTED. PG DRESSING CHANGED THIS SHIFT. PTS POTASSIUM WAS 3.4 ON AM LABS, REPLACEMENT ORDERED. HGB CAME BACK LOW THIS AM, POLST IN CHART SAYS PT DECLINEDS BLOOD. NO ACUTE EVENTS.
[2025-01-19] MEDS ORDERED: Potassium Chloride 40 MEQ in NS 250 ML IV ONE (05:20)
--- NOTE | 2025-01-19 08:21 | NUR ---
AM NOTE... ASSUMED CARE OF PATIENT AT APPROX 0700. PATIENT A&O TO SELF, STAFF, AND FOLLOWS COMMANDS. SPEECH IS SLOW AND MUMBLED. PATIENT IS ON 3L O2 VIA NC WITH SATS >90%, L/S RHONCHI IN THE UPPER LOBES AND DIM AND COARSE THROUGHOUT. PATIENT HAS A WEAK COUGH. HR SINUS TACH IN THE 100'S TO 110'S. PATIENT HAS 1+ EDEMA TO HER UPPER AND LOWER EXTREMETIES AND DEPENDENT EDEMA TO HER LABIA. DOBHOFF IN PLACE 65CM AT THE RIGHT NARE WITH TF RUNNING AT GOAL OF 40MLS/HR. BT ARE PRESENT AND HYPOACTIVE. LAST BM THIS MORNING 01/19, WATERY LIQUID. PATIENT INCONTINENT OF URINE.
[2025-01-19] MEDS ORDERED: Miconazole Nitrate 2% 85 GM PWD TOP PRN (12:20)
[2025-01-19 12:38] LABS: Hemoglobin 7.3 g/dL (11.5-16.0)
[2025-01-19] MEDS ORDERED: Furosemide 10 MG/ML 4ML Vial IV ONE (15:55)
--- NOTE | 2025-01-19 17:28 | NUR ---
SHIFT SUMMARY... PATIENT A&O TO SELF, STAFF, AND FOLLOWS COMMANDS. SLOW TO ANSWER QUESTIONS. PATIENT IN SINUS TACH AT 100'S-110'S. PATIENT ON ROOM AIR WITH SATS >92%, L/S COARSE AND DIM THROUGHOUT. DOBHOFF TO ALEKSANDR HUMPHRIES PATENT AND RUNNING TF AT GOAL OF 45ML/HR. PATIENT HAS BEEN 1 PERSON ASSIST TO BSC THROUGHOUT THE SHIFT. PATIENT HAD LOOSE, WATERY STOOLS X4 TODAY. AROUND 1600 PATIENT HAD A CHANGE IN BREATHING PATTERN, RT DID NT SUCTION AND PATIENT TOLERATED WELL AND HER BREATHING PATTERN BACAME LESS LABORED. PATIENT HAS DEPENDENT EDEMA TO LABIA AND 1+ EDEMA TO THE EXTREMETIES. NO OTHER ACUTE CHANGES THIS SHIFT.
--- NOTE | 2025-01-19 17:46 | NUR ---
ELECTRO TECH CHARTING/NOTES.... THIS RN HAS WITNESSED AND AGREES WITH ALL OF THE CHARTING AND NOTES FROM STUDENT NURSE VIDES.
[2025-01-20] VITALS: BP 121/72
[2025-01-20 01:00] VITALS: BP 121/71
[2025-01-20 04:29] VITALS: BP 145/84
[2025-01-20 04:45] LABS: BASOPHILS ABSOLUTE AUTO 0.05 K/mm3 (0.00-0.23); BASOPHILS PERCENT AUTO 1 % (0-2); EOSINOPHILS ABSOLUTE AUTO 0.21 K/mm3 (0.00-0.68); EOSINOPHILS PERCENT AUTO 2 % (0-6); Hematocrit 22.4 % (33.0-51.0); Hemoglobin 6.9 g/dL (11.5-16.0); IMMATURE GRAN ABSOLUTE AUTO 0.19 K/mm3 (0.00-0.10); IMMATURE GRAN PERCENT AUTO 2 % (0-1); LYMPHOCYTES ABSOLUTE AUTO 2.34 K/mm3 (0.84-5.20); LYMPHOCYTES PERCENT AUTO 21 % (21-46); MONOCYTES ABSOLUTE AUTO 0.66 K/mm3 (0.16-1.47); MONOCYTES PERCENT AUTO 6 % (4-13); Mean Corpuscular HGB 26.2 pg (26.0-34.0); Mean Corpuscular HGB Conc 30.8 g/dL (31.5-36.5); Mean Corpuscular Volume 85 fL (80-100); NEUTROPHILS ABSOLUTE AUTO 7.64 K/mm3 (1.96-9.15); NEUTROPHILS PERCENT AUTO 69 % (41-73); Platelet Count 328 K/mm3 (150-400); RDW Coefficient Variation 16.2 % (11.7-14.2); RDW Standard Deviation 50.2 fL (35.1-46.3); Red Blood Cell Count 2.63 M/mm3 (3.80-5.20); White Blood Cell Count 11.09 K/mm3 (4.00-11.30)
[2025-01-20 05:27] LABS: Bun/Creatinine Ratio 32.5 (12.0-20.0); Calcium, Blood 8.4 mg/dL (8.5-10.1); Creatinine, Blood 2.12 mg/dL (0.40-1.00); Magnesium, Blood 2.4 mg/dL (1.6-2.4); Percent Saturation 14.3 % (15.0-50.0); Phosphorus, Blood 3.5 mg/dL (2.5-4.9); Potassium, Blood 3.8 mmol/L (3.5-5.5)
--- NOTE | 2025-01-20 06:20 | NUR ---
SHIFT SUMMARY: NO SIGNIFICANT CHANGES OVERNIGHT. PT HAS BEEN RESPONSIVE AND FOLLOWING DIRECTION, STILL CONFUSED AND EXHIBITING SOME ELEMENTARY RESPONSES AND BEHAVIORS. SHE HAS BEEN NOTIFYING STAFF NEEDED TO USE THE BATHROOM AND REQUIRES LITTLE NURSING ASSISTANCE TO DO SO. SHE IS USING THE WALKER. STILL SOME WEAKNESS AND LACK OF COORDINATION ON THE RIGHT SIDE. STILL HAVING LIQUID BM'S. BREATHING SEEMS LESS LABORED, SHE IS ATTEMPTING TO COUGH AT TIMES.
[2025-01-20 07:46] VITALS: BP 148/85
[2025-01-20] MEDS ORDERED: Protein Supplement 30 ML UD PT SCH (09:00)
[2025-01-20 14:02] VITALS: BP 146/86
--- NOTE | 2025-01-20 19:08 | NUR ---
SHIFT SUMMARY NEURO: PATIENT ALERT AND ORIENTED X 3, DISORIENTED TO TIME. AFEBRILE. ABLE TO MAKE HER NEEDS KNOWN. DID NOT UTILIZE CALL LIGHT TODAY. MOVING EXTREMITIES WELL BUT R SIDE SLIGHTLY WEAKER. CARDIAC: SR-STACH, HR 90-100S. LUNGS: UPPER LOBES COARSE OTHERWISE CLEAR AND DIM. WEAK COUGH AND WEAK GAG. REFUSED NT SUCTION BUT AGREEABLE X 1 AT END OF SHIFT. THICK, CREAM COLORED SECREATIONS. SPO2 >92 ON 3LPM. FLUTTER VALVE AND SPIROMETER AT BEDSIDE. GI: BM X 2 TODAY, NORMOACTIVE BOWEL TONES. LIQUID BROWN : YELLOW, UP TO COMMODED TO URINATE. SKIN: SOME REDNESS TO GLUTEAL CLEFT AND VAGINA. MBSS COMPLETED TODAY PT REMAINS MOD NPO, DOBHOFF REMAINS IN PLACE. SEE FILE CLERK NOTE FOR DETAILS.
[2025-01-21 00:30] VITALS: BP 153/97
[2025-01-21 03:30] VITALS: BP 138/100
[2025-01-21 04:34] LABS: BASOPHILS ABSOLUTE AUTO 0.07 K/mm3 (0.00-0.23); BASOPHILS PERCENT AUTO 1 % (0-2); EOSINOPHILS ABSOLUTE AUTO 0.21 K/mm3 (0.00-0.68); EOSINOPHILS PERCENT AUTO 2 % (0-6); Hematocrit 22.6 % (33.0-51.0); Hemoglobin 6.9 g/dL (11.5-16.0); IMMATURE GRAN ABSOLUTE AUTO 0.16 K/mm3 (0.00-0.10); IMMATURE GRAN PERCENT AUTO 1 % (0-1); LYMPHOCYTES ABSOLUTE AUTO 2.57 K/mm3 (0.84-5.20); LYMPHOCYTES PERCENT AUTO 23 % (21-46); MONOCYTES ABSOLUTE AUTO 0.68 K/mm3 (0.16-1.47); MONOCYTES PERCENT AUTO 6 % (4-13); Mean Corpuscular HGB 26.2 pg (26.0-34.0); Mean Corpuscular HGB Conc 30.5 g/dL (31.5-36.5); Mean Corpuscular Volume 86 fL (80-100); Mean Platelet Volume 9.7 fL (9.1-12.4); NEUTROPHILS ABSOLUTE AUTO 7.66 K/mm3 (1.96-9.15); NEUTROPHILS PERCENT AUTO 68 % (41-73); Platelet Count 338 K/mm3 (150-400); RDW Coefficient Variation 16.4 % (11.7-14.2); RDW Standard Deviation 50.8 fL (35.1-46.3); Red Blood Cell Count 2.63 M/mm3 (3.80-5.20); White Blood Cell Count 11.35 K/mm3 (4.00-11.30)
[2025-01-21 04:55] LABS: Bun/Creatinine Ratio 31.8 (12.0-20.0); Calcium, Blood 8.3 mg/dL (8.5-10.1); Creatinine, Blood 1.92 mg/dL (0.40-1.00)
--- NOTE | 2025-01-21 06:37 | NUR ---
ASSUMPTION OF CARE/SHIFT SUMMARY CARE OF PT ASSUMED FROM ALISON CALIXTO AT 0430 FOLLOWING REPORT. PT STAYED IN SINUS RHYTHM RATE IN 90'S. NO CHEST PAIN/PRESSURE, SOB. BP STABLE BEFORE ASSUMPTION OF CARE. NO CHECKED AT END OF SHIFT DUE TO PT SLEEPING. PT RESPIRATIONS SOMEWHAT LABORED THOUGH NORMAL RATE. MUCOUS AUDIBLE IN UPPER AIRWAY, PT WEAK COUGH, PT DECLINED NG SUCTIONING. 2L NC PRODUCING >92% SATURATIONS. BS ACTIVE. PT CAN REPORTEDLY TAKE MEDS CRUSHED IN APPLESAUCE FOLLOWING SCREEN AND CYCLONE REPAIRER EVAL. NO N/V, NO AB PAIN. DOBHOFF IN PLACE WITH dbTwangITY TF AT GOAL. JEVITY IS OUT IN ICU SUPPLY- NEED MORE. PT HAS BEING USING BEDSIDE COMMODE WITH WALKER AND SBA. PT GIVEN ONE DOSE OF FENTANYL FOR PAIN AT 0600. PT DOES NOT USE CALL LIGHT BUT INSTEAD RELIES ON OTHER FORMS OF COMMUNICATION TO GET HELP. BEDISDE REPORT GIVEN TO EZEQUIEL AVINA RN.
[2025-01-21 07:52] VITALS: BP 151/101
[2025-01-21 14:45] VITALS: BP 149/93
--- NOTE | 2025-01-21 18:48 | NUR ---
SHIFT SUMMARY PATIENT ALERT AND ORIENTED 3-4. ABLE TO MAKE HER NEEDS KNOWN BUT DOES NOT ALWAYS CALL APPROPRIATELY. MOVES ALL EXTREMITIES WELL. COMPLAINTS OF FATIGUE TODAY DECLINED TO SIT UP IN THE RECLINER OR GO FOR A WALK. GAG AND COUGH IMPROVED TODAY, LUNGS: UPPER LOBES COARSE OTHERWISE CLEAR TO AUSCULATATION. SMALL BROWN LIQUID BM WITH EACH URINATION. NYSTATIN APPLIED. SKIN TO GROIN FOLDS IMPROVING WELL GLUTEAL CLEFT. SPOKE WITH HER MOTHER ON THE PHONE. SBP 110-120S HR 90-110S.
--- NOTE | 2025-01-21 19:00 | NUR ---
ASSUMPTION OF CARE CARE OF PT ASSUMED FOLLOWING BEDSIDE SHIFT REPORT. PT IN SINUS RHYTHM RATE IN 90'S. NO CORONARY TYPE CHEST PAIN/PRESSURE, SOB. PT DOES C/O OF LOWER CHEST/EPIGASTRIC PAIN, DULL, CONSTANT, WORSE WITH COUGHING, NOT RELIEVED WITH BOWEL MOVEMENTS. WILL TREAT WITH PHARMACOLOGIC AND NONPHARMICOLOGIC INTERVENTIONS. BP STABLE. PT RESPIRATIONS SOMEWHAT LABORED THOUGH NORMAL RATE. MUCOUS AUDIBLE IN UPPER AIRWAY, THOUGH DECREASED FROM LAST NIGHT, PT WEAK COUGH. 1L NC PRODUCING >92% SATURATIONS. BS ACTIVE. PT CAN REPORTEDLY TAKE MEDS CRUSHED IN APPLESAUCE FOLLOWING RADIO SPORTSCASTER EVAL. NO N/V, NO AB PAIN (OTHER THAN EPIGASTIC PAIN). DOBHOFF IN PLACE WITH JEVITY TF AT GOAL. PT HAS BEING USING BEDSIDE COMMODE WITH WALKER AND SBA. PT DOES NOT USE CALL LIGHT BUT INSTEAD RELIES ON OTHER FORMS OF COMMUNICATION TO GET HELP. CALL LIGHT IS IN BED WITH PT HOWEVER. WILL REVIEW AND CONTINUE PLAN OF CARE.
[2025-01-21 21:06] VITALS: BP 137/84
[2025-01-21 21:08] LABS: Bun/Creatinine Ratio 31.9 (12.0-20.0); Calcium, Blood 8.3 mg/dL (8.5-10.1); Creatinine, Blood 1.85 mg/dL (0.40-1.00); Potassium, Blood 4.1 mmol/L (3.5-5.5)
[2025-01-22 04:45] VITALS: BP 141/85
[2025-01-22 04:55] LABS: BASOPHILS ABSOLUTE AUTO 0.04 K/mm3 (0.00-0.23); BASOPHILS PERCENT AUTO 0 % (0-2); EOSINOPHILS ABSOLUTE AUTO 0.17 K/mm3 (0.00-0.68); EOSINOPHILS PERCENT AUTO 2 % (0-6); Hematocrit 22.6 % (33.0-51.0); Hemoglobin 6.9 g/dL (11.5-16.0); IMMATURE GRAN ABSOLUTE AUTO 0.13 K/mm3 (0.00-0.10); IMMATURE GRAN PERCENT AUTO 1 % (0-1); LYMPHOCYTES ABSOLUTE AUTO 2.67 K/mm3 (0.84-5.20); LYMPHOCYTES PERCENT AUTO 24 % (21-46); MONOCYTES PERCENT AUTO 6 % (4-13); Mean Corpuscular HGB 26.3 pg (26.0-34.0); Mean Corpuscular HGB Conc 30.5 g/dL (31.5-36.5); Mean Corpuscular Volume 86 fL (80-100); Mean Platelet Volume 9.8 fL (9.1-12.4); NEUTROPHILS ABSOLUTE AUTO 7.61 K/mm3 (1.96-9.15); NEUTROPHILS PERCENT AUTO 67 % (41-73); Platelet Count 347 K/mm3 (150-400); RDW Coefficient Variation 16.4 % (11.7-14.2); RDW Standard Deviation 50.7 fL (35.1-46.3); Red Blood Cell Count 2.62 M/mm3 (3.80-5.20); White Blood Cell Count 11.32 K/mm3 (4.00-11.30)
[2025-01-22 05:20] LABS: Bun/Creatinine Ratio 31.5 (12.0-20.0); Calcium, Blood 8.5 mg/dL (8.5-10.1); Creatinine, Blood 1.78 mg/dL (0.40-1.00); Potassium, Blood 4.2 mmol/L (3.5-5.5)
--- NOTE | 2025-01-22 06:09 | NUR ---
SHIFT SUMMARY PT ALERT AND ORIENTED TO ALL BUT DATE. SPEECH IS SOFT. PT STAYED IN SINUS RHYTHM RATE IN 90'S. NO CORONARY TYPE CHEST PAIN/PRESSURE, SOB. BP STABLE. PT RESPIRATIONS SOMEWHAT LABORED THOUGH NORMAL RATE. MUCOUS AUDIBLE IN UPPER AIRWAY, PT WEAK BUT IMPROVING COUGH, PT DECLINED NG SUCTIONING. 1L NC PRODUCING >92% SATURATIONS. BS ACTIVE. PT CAN REPORTEDLY TAKE MEDS CRUSHED IN APPLESAUCE FOLLOWING RN LPN LVN EVAL, BUT NONE GIVEN DURING SHIFT. NO N/V, NO AB PAIN- BESIDES EPIGASTIC/CHEST PAIN THAT IS CONSTANT AND DULL. PT WAS MEDICATED PER NOV. DOBHOFF IN PLACE WITH JEVITY TF AT GOAL. PT ESCORTED TO TOILET WITH WALKER AND 1 SBA. PT DOES NOT USE CALL LIGHT BUT INSTEAD RELIES ON OTHER FORMS OF COMMUNICATION TO GET HELP. PT EDUCATED AESTHETICS INSTRUCTOR LIGHT USE SINCE HER MENTATION HAS IMPROVED. NADYAE REPORT GIVEN TO ONCOMING DAY RN.
--- NOTE | 2025-01-22 07:30 | NUR ---
PT FOUND SITTING AT SIDE OF BED AT START OF SHIFT. DOBHOFF TUBE NO LONGER IN NARE. PT STATED SHE NEEDED TO USE THE RESTROOM. ASSISTED HER UP TO THE BEDSIDE COMMODE. WHEN ASKED HOW HER FEEDING TUBE CAME TO BE OUT SHE SAID SHE TOOK IT OUT SHE NO LONGER NEEDED IT TO BREATH. EDUCATION PROVIDED ON DOBHOFF. CALL TO DR COLLINS, NOTIFIED. PT REFUSED REPLACEMENT OF DOBHOFF. DECLINED PEG TUBE PER DR COLLINS YESTERDAY. CALL TO [facility] TO DISCUSS GOALS OF CARE TODAY.
--- NOTE | 2025-01-22 11:20 | NUR ---
PT TRANSFER TO PCU BED 4. REPORT CALLED TO SALAS CALIXTO.
[2025-01-22 11:24] VITALS: BP 156/92
[2025-01-22 15:27] VITALS: BP 161/104
--- NOTE | 2025-01-22 16:33 | NUR ---
LEFT MESSAGE FOR PT'S MOTHER/POA FOR RETURN CALL TO THIS PC RN OR CURRENT PRIMARY RN IN PCU. LEFT PCU NUMBER OF [phone] IF PC NOT AVAILABLE. GOAL: ATTEMPT GOALS OF CARE CONVERSATION TOMORROW 01/23 RE: NUTRITION.
--- NOTE | 2025-01-22 18:04 | NUR ---
PT SUMMARY PT TRANSFERED OVER FROM ICU 2 TO PCU 4, PT HEART RATE IN THE 100s, BLOOD PRESSURE STABLE AT 147/98, PT DENIES CHEST PAIN. PT IS ON ROOM AIR, SOUNDS CLEAR EXCEPT FOR SOME SECRETIONS IN UPPER AIRWAY, PT IS USING SUCTION TO CLEAR OUT SECRETIONS, PT DENIES SHORTNESS OF BREATH. PT DID GET MRI DONE TODAY AND RESULTS ARE IN. PT PULLED DOBHOFF OUT AND STATED THEY DO NOT WANT ONE PUT BACK IN, IS AWARE AND PLAN IS TO HAVE A GOALS OF CARE TALK TOMORROW. NO OTHER INTERVENTIONS AT THIS TIME. PLAN OF CARE CONTINUED.
[2025-01-22 21:13] VITALS: BP 138/91
[2025-01-23 00:31] VITALS: BP 138/91
--- NOTE | 2025-01-23 04:13 | NUR ---
Shift Summary: pt is alert x3, able to make her needs known, on 1 L NC at noc shift for comfort, pt is NPO and is complaint, uses commode to void, one loose BM noted this shift, pt is cont of both bab, NSR to ST, pt is NPO rt failure of her barrium swallow exam, oral medication has not been given pt has been sleepy and it is not safe to administer, plan for day is to have a goals of care conversation rt pt not being willing to place feeding tube for food fluids or medication.
[2025-01-23 04:38] VITALS: BP 140/90
[2025-01-23 04:52] LABS: BASOPHILS ABSOLUTE AUTO 0.06 K/mm3 (0.00-0.23); BASOPHILS PERCENT AUTO 1 % (0-2); EOSINOPHILS ABSOLUTE AUTO 0.13 K/mm3 (0.00-0.68); EOSINOPHILS PERCENT AUTO 1 % (0-6); Hematocrit 21.9 % (33.0-51.0); Hemoglobin 6.5 g/dL (11.5-16.0); IMMATURE GRAN ABSOLUTE AUTO 0.12 K/mm3 (0.00-0.10); IMMATURE GRAN PERCENT AUTO 1 % (0-1); LYMPHOCYTES ABSOLUTE AUTO 2.56 K/mm3 (0.84-5.20); LYMPHOCYTES PERCENT AUTO 24 % (21-46); MONOCYTES ABSOLUTE AUTO 0.58 K/mm3 (0.16-1.47); MONOCYTES PERCENT AUTO 5 % (4-13); Mean Corpuscular HGB 25.3 pg (26.0-34.0); Mean Corpuscular HGB Conc 29.7 g/dL (31.5-36.5); Mean Corpuscular Volume 85 fL (80-100); Mean Platelet Volume 9.5 fL (9.1-12.4); NEUTROPHILS PERCENT AUTO 68 % (41-73); Platelet Count 333 K/mm3 (150-400); RDW Coefficient Variation 16.5 % (11.7-14.2); RDW Standard Deviation 50.6 fL (35.1-46.3); Red Blood Cell Count 2.57 M/mm3 (3.80-5.20); White Blood Cell Count 10.65 K/mm3 (4.00-11.30)
[2025-01-23 05:14] LABS: Bun/Creatinine Ratio 29.5 (12.0-20.0); Calcium, Blood 8.7 mg/dL (8.5-10.1); Creatinine, Blood 1.66 mg/dL (0.40-1.00); Potassium, Blood 4.1 mmol/L (3.5-5.5)
[2025-01-23] MEDS ORDERED: Pantoprazole Sodium 40 MG Injection IV SCH (06:00)
--- NOTE | 2025-01-23 11:12 | NUR ---
UPDATED [facility]KHISM PREFERENCE TO NO PREFERENCE PER PT REQUEST.
--- NOTE | 2025-01-23 11:53 | NUR ---
PALLIATIVE CARE VISIT: GOALS OF CARE DISCUSSED WITH PT IN HER ROOM AND MOTHER ANABELL ON THE PHONE TOGETHER. EDUCATED PT/MOTHER ON LAB RESULTS REGARDING REASON NEEDING BLOOD TRANSFUSION AND REASONS NEEDING A PEG TUBE. EDUCATED PT/MOTHER ON WHAT A PEG TUBE IS. ALSO DISCUSSED WHAT HOSPICE SERVICES PROVIDE. PT/MOTHER DECIDED TO MOVE FORWARD WITH OBTAINING A PEG TUBE AND ARE OKAY WITH HAVING BLOOD TRANSFUSIONS. PT STATES SHE IS NO LONGER A JEHOVA WITNESS AND WANTS TO HAVE HER WORSHIP STATUS UPDATED AND HAVE JEHOVA WITNESS REMOVED FROM HER RECORD. MOTHER STATED THEY HAD STOPPED FOLLOWING JEHOVA WITNESS EPISCOPAL PRIOR TO HER DAUGHTER BEING HOSPITALIZED STATING "IT WASN'T THE EPISCOPAL FOR US". PT STATES "I WANT TO LIVE, I DON'T WANT TO " WHEN DISCUSSING OPTION OF HOSPICE CARE VS PEG TUBE AND NEEDING A BLOOD TRANSFUSION. PT ALSO C/O 10/10 STOMACH PAIN DESCRIBING "CRAMPING" RADIATES TO CHEST. REQUESTED PT TO POINT WHERE SHE WAS CRAMPING AND SHE WAVES HER HAND ACROSS HER WHOLE ABDOMEN. NOTIFIED PRIMARY RN AND DR. DOVE OF REPORT OF PAIN AND ABOVE CONVERSATION.
[2025-01-23 13:14] VITALS: BP 143/93
[2025-01-23 17:32] VITALS: BP 170/86
--- NOTE | 2025-01-23 18:52 | NUR ---
SHIFT SUMMARY S/P ACUTE HYPOXEMIA, A/OX 4 THOUGH SHE IS INTERMITTENTLY FORGETFUL, PASSED SWALLOW EVAL TODAY AND STARTED PUREE DIET, SHE HAD A DINNER TRAY AND WAS ABLE TO EAT THAT WITH NO DIFFICULTIES, PO MEDS RESUMED AFTER CLEARED BY ST. NO ACUTE EVENTS THIS SHIFT.
[2025-01-23 20:44] VITALS: BP 153/89
[2025-01-24] VITALS (12 sets, daily range): BP systolic 130–161; BP diastolic 70–99
[2025-01-24] MEDS ORDERED: PARO20 PO (01:22)
[2025-01-24] MEDS ORDERED: ANORO ELLIPTA1 EACH INH (01:26)
[2025-01-24 04:24] LABS: BASOPHILS ABSOLUTE AUTO 0.06 K/mm3 (0.00-0.23); BASOPHILS PERCENT AUTO 1 % (0-2); EOSINOPHILS ABSOLUTE AUTO 0.18 K/mm3 (0.00-0.68); EOSINOPHILS PERCENT AUTO 2 % (0-6); Hematocrit 20.3 % (33.0-51.0); Hemoglobin 6.2 g/dL (11.5-16.0); IMMATURE GRAN PERCENT AUTO 1 % (0-1); LYMPHOCYTES ABSOLUTE AUTO 2.29 K/mm3 (0.84-5.20); LYMPHOCYTES PERCENT AUTO 27 % (21-46); MONOCYTES ABSOLUTE AUTO 0.51 K/mm3 (0.16-1.47); MONOCYTES PERCENT AUTO 6 % (4-13); Mean Corpuscular HGB 25.7 pg (26.0-34.0); Mean Corpuscular HGB Conc 30.5 g/dL (31.5-36.5); Mean Corpuscular Volume 84 fL (80-100); Mean Platelet Volume 9.4 fL (9.1-12.4); NEUTROPHILS ABSOLUTE AUTO 5.41 K/mm3 (1.96-9.15); NEUTROPHILS PERCENT AUTO 63 % (41-73); Platelet Count 308 K/mm3 (150-400); RDW Coefficient Variation 16.7 % (11.7-14.2); RDW Standard Deviation 50.7 fL (35.1-46.3); Red Blood Cell Count 2.41 M/mm3 (3.80-5.20); White Blood Cell Count 8.55 K/mm3 (4.00-11.30)
[2025-01-24 04:50] LABS: Bun/Creatinine Ratio 21.7 (12.0-20.0); Calcium, Blood 8.4 mg/dL (8.5-10.1); Creatinine, Blood 1.84 mg/dL (0.40-1.00); Potassium, Blood 4.2 mmol/L (3.5-5.5)
--- NOTE | 2025-01-24 06:15 | NUR ---
SHIFT SUMMARY PATIENT A&O X4 BUT CAN BE FORGETFULL. PATIENT ON 2L O2 VIA NC. VITAL SIGNS STABLE. PATIENT STATED FEELING SHORT OF BREATH AND CHEST PAIN, RT NOTIFIED FOR BREATHING TREATMENT, PAIN RELIEVED. PATIENT ALSO STATED HAVING A HEADACHE, MEDICATED PER EMAR.
[2025-01-24 06:40] LABS: Percent Saturation 8.7 % (15.0-50.0)
[2025-01-24] MEDS ORDERED: Sod Ferric Gluc Complx/Sucrose 125 MG in NS 100 ML IV SCH (09:00)
[2025-01-24] MEDS ORDERED: Enoxaparin 40 MG/0.4 ML SYR SC SCH (09:00)
[2025-01-24] MEDS ORDERED: Ipratropium/Albuterol SulF 2.5-0.5MG/3 ML Amp INH SCH (09:45)
--- NOTE | 2025-01-24 11:26 | NUR ---
Spiritual Care Visit. Pt. is sitting up in a chair and is pleasant when she welcomes my visit. Facilitated an update as pt. had previously been a Pt. in ICU. Pt. verbalized that she wanted to do what ever it takes to get better. With pastoral care this provisioning specialist affirmed that the Pt. and family were in agreement, and that she no longer held to the medical limitations of her former episcopal. Faciltated more life review. Pt. verbalized that she was anxious about her surgery. This cahplain listened with empathy and a calming presence and prayed for the Pt. Pt. verbalized gratitude for the spiritual care visit and welcomed this provisioning specialist to return.
[2025-01-24 13:22] LABS: Hematocrit 25.3 % (33.0-51.0); Hemoglobin 7.9 g/dL (11.5-16.0)
--- NOTE | 2025-01-24 16:05 | NUR ---
TRANSFER OF CARE PT IS A/OX3-4,FORGETFUL AT TIMES. PT RECIEVED 1 UNIT PACKED RBC. HGB INCREAESED FROM 6.2 TO 7.9. PT IS SBA TO BSC/CHAIR. PT CALLS APPROPRIATELY TO MAKE NEEDS KNOWN. PT WAS ABLE TO TOLERATE RA T/O SHIFT STAYING ABOVE 95% ABLE TO DEMONSTRATE USE OF FLUTTER VALVE AT BEDSIDE. BREATHING TREATMENT PER RT. DIET ADVANCED TO MINCED AND MOIST, PER SPEECH THERAPIST. SINUS TACH 110'S. WILL REPORT TO MEDICAL FLOOR RN.
--- NOTE | 2025-01-24 17:24 | NUR ---
ASSUMED CARE OF PT. REPORT RECIEVED FROM BREAK RN. ABLE TO EXPRESS NEEDS, R/A AT THIS TIME. CONTACT ISO
--- NOTE | 2025-01-24 18:09 | NUR ---
THIS RN NOTIFIED BY TELE PT HAS BEEN ST 110-120. PT HAD 5 SEC RUN RVR UP TO ALMOST 200. PT RETURNED TO BASELINE.
[2025-01-24] MEDS ORDERED: Darbepoetin Alfa in Polysorbat 25 MCG/0.42 ML Syringe SC SCH (21:10)
[2025-01-25 01:07] VITALS: BP 151/81
[2025-01-25 04:16] VITALS: BP 146/81
[2025-01-25 04:49] LABS: BASOPHILS ABSOLUTE AUTO 0.06 K/mm3 (0.00-0.23); BASOPHILS PERCENT AUTO 1 % (0-2); EOSINOPHILS ABSOLUTE AUTO 0.16 K/mm3 (0.00-0.68); EOSINOPHILS PERCENT AUTO 2 % (0-6); Hematocrit 25.1 % (33.0-51.0); Hemoglobin 7.9 g/dL (11.5-16.0); IMMATURE GRAN ABSOLUTE AUTO 0.08 K/mm3 (0.00-0.10); IMMATURE GRAN PERCENT AUTO 1 % (0-1); LYMPHOCYTES ABSOLUTE AUTO 2.14 K/mm3 (0.84-5.20); LYMPHOCYTES PERCENT AUTO 25 % (21-46); MONOCYTES ABSOLUTE AUTO 0.61 K/mm3 (0.16-1.47); MONOCYTES PERCENT AUTO 7 % (4-13); Mean Corpuscular HGB 26.2 pg (26.0-34.0); Mean Corpuscular HGB Conc 31.5 g/dL (31.5-36.5); Mean Corpuscular Volume 83 fL (80-100); Mean Platelet Volume 9.1 fL (9.1-12.4); NEUTROPHILS ABSOLUTE AUTO 5.64 K/mm3 (1.96-9.15); NEUTROPHILS PERCENT AUTO 65 % (41-73); Platelet Count 304 K/mm3 (150-400); RDW Coefficient Variation 16.1 % (11.7-14.2); RDW Standard Deviation 48.6 fL (35.1-46.3); Red Blood Cell Count 3.01 M/mm3 (3.80-5.20); White Blood Cell Count 8.69 K/mm3 (4.00-11.30)
[2025-01-25 05:07] LABS: Albumin, Blood 2.3 g/dL (3.4-5.0); Anion Gap 11 mmol/L (3-11); Blood Urea Nitrogen 35 mg/dL (8-24); Bun/Creatinine Ratio 18.7 (12.0-20.0); CO2, Blood 22 mmol/L (21-32); Calcium, Blood 8.8 mg/dL (8.5-10.1); Chloride, Blood 109 mmol/L (98-108); Creatinine, Blood 1.87 mg/dL (0.40-1.00); Glomerular Filtration Rate 31 (60-); Glucose, Blood 84 mg/dL (70-99); Magnesium, Blood 1.9 mg/dL (1.6-2.4); Phosphorus, Blood 4.2 mg/dL (2.5-4.9); Potassium, Blood 4.1 mmol/L (3.5-5.5); Sodium, Blood 138 mmol/L (136-145)
--- NOTE | 2025-01-25 05:19 | NUR ---
SHIFT SUMMARY NOC PT A/O X 3-4. CONFUSED AND FORGETFUL AT TIMES. ON TELE AND HR STILL SINUS TACH IN LOW 100'S-110'S, BUT NO CALLS FROM TELE. RHTYHM STRIP REVIEWED BY RN. PT WAS ON 2L/NC AT BEGINNING OF SHIFT AND TOOK IT OFF MID SHIFT, WHEN SPOT CHECKED SPO2 >95% ON RA. PT RECEIVED 1 UNIT PRBC YESTERDAY WELL DOSE OF DARBEPOETIN THIS AM, HGB 7.[address] BLOCK CAME TO SEE PT AND WILL ORDER IVF IF RENAL FUNCTION NOT IMPROVED. PT ALSO PREFERS FEMALE NURSING STAFF FOR ALL PERSONAL CARE. PT HAS POWER PICC IN NATASHA AND POWERGLIDE IN ZULEIMA THAT BOTH DRAW. PT ALSO HAD SOME VAGINAL BLEEDING, AND PT STATED THAT THEY WERE ON MENSTRUAL CYCLE. PT ON ENTERIC ISLOLATION FOR C DIFF. PT CURRENTLY RESTING WITH BED IN LOWEST POSITION, AND CALL LIGHT WITHIN REACH.
[2025-01-25] MEDS ORDERED: D5W-NS 1,000 ML IV SCH (05:25)
[2025-01-25 07:42] VITALS: BP 155/84
--- NOTE | 2025-01-25 16:03 | NUR ---
PT DISCHARGED TO [facility] ON 2L NC. PT ANXIOUS. REPORT GIVEN TO RN AT FACILITY.
[2025-01-25] MEDS ORDERED: [UNRECOGNIZED DRUG - OTHER] PT (16:55)
[2025-01-25] MEDS ORDERED: MULTIVITAMIN PT (16:55)
[2025-01-25] MEDS ORDERED: B-1100 M2 PT (16:56)
[2025-01-25] MEDS ORDERED: HYDR1TAB94 PO (16:57)
[2025-01-25] MEDS ORDERED: VANCOCIN HCL125 MG PT (16:58)
== END 2025-01-25 14:28 | DRG 870 ==
LOC: ER 15:10 → PCU 19:29 → MEDS 19:29 → ICUE 19:29 → MEDS 19:29 → ICUE 21:12 → PCU 01-22 11:23 → MEDS 01-24 16:28
PROVIDERS: Emergency Medicine; Family Medicine; Internal Medicine; Internal Medicine Critical Care Medicine; Internal Medicine Nephrology; Student in an Organized Health Care Education/Training Program; ADMIT Internal Medicine
PROC: 5A1945Z Respiratory Ventilation, 24-96 Consecutive Hours (ICD-10-PCS; principal; 2025-01-06)
PROC: 0BH17EZ Insertion of Endotracheal Airway into Trachea, Via Natural or Artificial Opening (ICD-10-PCS; 2025-01-06)
PROC: 5A09357 Assistance with Respiratory Ventilation, Less than 24 Consecutive Hours, Continuous Positive Airway Pressure (ICD-10-PCS; 2025-01-06)
PROC: 5A12012 Performance of Cardiac Output, Single, Manual (ICD-10-PCS; 2025-01-06)
PROC: 02HV33Z Insertion of Infusion Device into Superior Vena Cava, Percutaneous Approach (ICD-10-PCS; 2025-01-06)
PROC: 3E043XZ Introduction of Vasopressor into Central Vein, Percutaneous Approach (ICD-10-PCS; 2025-01-06)
PROC: 4A133R1 Monitoring of Arterial Saturation, Peripheral, Percutaneous Approach (ICD-10-PCS; 2025-01-06)
PROC: 3E03329 Introduction of Other Anti-infective into Peripheral Vein, Percutaneous Approach (ICD-10-PCS; 2025-01-06)
PROC: 0BH17EZ Insertion of Endotracheal Airway into Trachea, Via Natural or Artificial Opening (ICD-10-PCS; 2025-01-13)
PROC: 02HV33Z Insertion of Infusion Device into Superior Vena Cava, Percutaneous Approach (ICD-10-PCS; 2025-01-13)
PROC: 5A1955Z Respiratory Ventilation, Greater than 96 Consecutive Hours (ICD-10-PCS; 2025-01-13)
PROC: 30233N1 Transfusion of Nonautologous Red Blood Cells into Peripheral Vein, Percutaneous Approach (ICD-10-PCS; 2025-01-24)
DX: A40.3 Sepsis due to Streptococcus pneumoniae (principal); G92.8 Other toxic encephalopathy; G93.41 Metabolic encephalopathy; R65.21 Severe sepsis with septic shock; R40.20 Unspecified coma; J96.21 Acute and chronic respiratory failure with hypoxia; J96.22 Acute and chronic respiratory failure with hypercapnia; J13 Pneumonia due to Streptococcus pneumoniae; Z66 Do not resuscitate; J15.1 Pneumonia due to Pseudomonas; I46.2 Cardiac arrest due to underlying cardiac condition; A04.72 Enterocolitis due to Clostridium difficile, not specified as recurrent; E87.0 Hyperosmolality and hypernatremia; N17.9 Acute kidney failure, unspecified; N39.0 Urinary tract infection, site not specified; D83.9 Common variable immunodeficiency, unspecified; E87.20 Acidosis, unspecified; J44.0 Chronic obstructive pulmonary disease with (acute) lower respiratory infection; J44.1 Chronic obstructive pulmonary disease with (acute) exacerbation; D80.2 Selective deficiency of immunoglobulin A [IgA]; Z16.29 Resistance to other single specified antibiotic; M96.A3 Multiple fractures of ribs associated with chest compression and cardiopulmonary resuscitation; M96.A1 Fracture of sternum associated with chest compression and cardiopulmonary resuscitation; D64.9 Anemia, unspecified; N18.9 Chronic kidney disease, unspecified; F17.210 Nicotine dependence, cigarettes, uncomplicated; E87.70 Fluid overload, unspecified; R00.1 Bradycardia, unspecified; B95.2 Enterococcus as the cause of diseases classified elsewhere; I12.9 Hypertensive chronic kidney disease with stage 1 through stage 4 chronic kidney disease, or unspecified chronic kidney disease; E88.09 Other disorders of plasma-protein metabolism, not elsewhere classified; R13.10 Dysphagia, unspecified; E86.9 Volume depletion, unspecified; E87.6 Hypokalemia; E83.51 Hypocalcemia; Z88.2 Allergy status to sulfonamides; Z88.8 Allergy status to other drugs, medicaments and biological substances; Z79.899 Other long term (current) drug therapy; Z99.81 Dependence on supplemental oxygen; Z85.038 Personal history of other malignant neoplasm of large intestine; Z78.1 Physical restraint status
CPT/HCPCS: 0241U; 31500; 31720; 36415; 36430; 36556; 36569; 36600; 51702; 70450; 70551; 71045; 71260; 74230; 76770; 80047; 80048; 80053; 80069; 80202; 81001; 82330; 82607; 82728; 82746; 82803; 82947; 83540; 83550; 83605; 83735; 83880; 84100; 84132; 84484; 85014; 85018; 85025; 86850; 86900; 86901; 86923; 87040; 87070; 87077; 87086; 87186; 87205; 87324; 87507; 92526; 92610; 92611; 92950; 93005; 93010; 93308; 93321; 94002; 94003; 94640; 94644; 94660; 94664; 94760; 94762; 96365-59; 96367-59; 96368; 97110; 97110-CQ; 97161; 97162; 97166; 97530; 97535; 99285-25; A9270; C1751; J0171; J0612; J0692; J0696; J0881; J1650; J1720; J1938; J2250; J2371; J2405; J2470; J2543; J2704; J3010; J3370; J3475; J3480; J7030; J7040; J7042; J7050; J7060; J7070; J7120; P9016; P9045; P9047; Q9967

== ENCOUNTER 2025-02-13 09:03 | Emergency (ER) | payer OTHER ==
[~2025-02-13] VITALS: Ht 154.9 cm; Wt 60.8 kg
[~2025-02-13 09:03] MED LIST changes: +ANORO ELLIPTA1 EACH INH; +B-1100 M2 PT; +HYDR1TAB94 PO; +MULTIVITAMIN PT; +PARO20 PO; +VANCOCIN HCL125 MG PT; +[UNRECOGNIZED DRUG - OTHER] PT
[2025-02-13 11:36] LABS: BASOPHILS ABSOLUTE AUTO 0.08 K/mm3 (0.00-0.23); BASOPHILS PERCENT AUTO 1 % (0-2); EOSINOPHILS ABSOLUTE AUTO 0.07 K/mm3 (0.00-0.68); EOSINOPHILS PERCENT AUTO 1 % (0-6); Hematocrit 27.5 % (33.0-51.0); Hemoglobin 8.6 g/dL (11.5-16.0); IMMATURE GRAN ABSOLUTE AUTO 0.12 K/mm3 (0.00-0.10); IMMATURE GRAN PERCENT AUTO 1 % (0-1); LYMPHOCYTES ABSOLUTE AUTO 3.19 K/mm3 (0.84-5.20); LYMPHOCYTES PERCENT AUTO 25 % (21-46); MONOCYTES ABSOLUTE AUTO 0.83 K/mm3 (0.16-1.47); MONOCYTES PERCENT AUTO 6 % (4-13); Mean Corpuscular HGB 26.3 pg (26.0-34.0); Mean Corpuscular HGB Conc 31.3 g/dL (31.5-36.5); Mean Corpuscular Volume 84 fL (80-100); Mean Platelet Volume 8.9 fL (9.1-12.4); NEUTROPHILS ABSOLUTE AUTO 8.64 K/mm3 (1.96-9.15); NEUTROPHILS PERCENT AUTO 67 % (41-73); Platelet Count 481 K/mm3 (150-400); RDW Coefficient Variation 15.2 % (11.7-14.2); RDW Standard Deviation 46.2 fL (35.1-46.3); Red Blood Cell Count 3.27 M/mm3 (3.80-5.20); White Blood Cell Count 12.93 K/mm3 (4.00-11.30)
[2025-02-13 12:18] LABS: Albumin, Blood 3.2 g/dL (3.4-5.0); Bilirubin, Total 0.3 mg/dL (0.1-1.0); Bun/Creatinine Ratio 7.9 (12.0-20.0); Calcium, Blood 9.5 mg/dL (8.5-10.1); Creatinine, Blood 1.26 mg/dL (0.40-1.00); Globulin, Blood 3.1 g/dL (2.2-4.0); Potassium, Blood 3.9 mmol/L (3.5-5.5); Thyroid Stimulating Hormone 1.19 uIU/mL (0.360-4.800); Total Protein, Blood 6.3 g/dL (6.4-8.2)
[2025-02-13 13:18] LABS: Source, Urine Voided
[2025-02-13 13:21] LABS: Appearance, Urine Clear (Clear); Bilirubin, Urine Neg (Neg); Blood, Urine Neg (Neg); Glucose Qualitative, Urine Neg (Neg); Ketones, Urine Neg (Neg); Leukocyte Esterase, Urine 1+ (Neg); Nitrite, Urine Neg (Neg); Protein, Urine Neg (Neg); Urobilinogen, Urine NORM (Normal)
[2025-02-13 13:22] LABS: Base Excess Venous -0.4 mmol/L; PCO2 Venous 44.9 mmHg (38-42); pH Blood Venous 7.36 (7.34-7.37)
[2025-02-13 13:32] LABS: Bacteria Rare /hpf; Color, Urine Pale Yellow (P-Yellow); Red Blood Cells, Urine Not Seen /hpf (0-2); Squamous Epithelial Cells Rare /hpf (Few)
[2025-02-13 15:15] VITALS: BP 116/67
== END 2025-02-13 16:20 | disposition home or self-care (01) ==
LOC: ER 09:03
PROVIDERS: Emergency Medicine
DX: R41.0 Disorientation, unspecified (principal); J44.9 Chronic obstructive pulmonary disease, unspecified; F17.200 Nicotine dependence, unspecified, uncomplicated; Z99.81 Dependence on supplemental oxygen; Z88.2 Allergy status to sulfonamides; Z88.8 Allergy status to other drugs, medicaments and biological substances; Z79.899 Other long term (current) drug therapy
CPT/HCPCS: 70450; 71046; 80053; 80320; 81001; 82140; 82803; 84443; 85025; 87086; 99285-25

== ENCOUNTER 2025-07-23 14:48 | Emergency (ER) | payer OTHER ==
[~2025-07-23] VITALS: Ht 154.9 cm; Wt 53.1 kg
[2025-07-23 15:44] LABS: BASOPHILS ABSOLUTE AUTO 0.08 K/mm3 (0.00-0.23); BASOPHILS PERCENT AUTO 1 % (0-2); EOSINOPHILS ABSOLUTE AUTO 0.16 K/mm3 (0.00-0.68); EOSINOPHILS PERCENT AUTO 1 % (0-6); Hematocrit 36.8 % (33.0-51.0); Hemoglobin 12.0 g/dL (11.5-16.0); IMMATURE GRAN ABSOLUTE AUTO 0.18 K/mm3 (0.00-0.10); IMMATURE GRAN PERCENT AUTO 2 % (0-1); LYMPHOCYTES ABSOLUTE AUTO 2.69 K/mm3 (0.84-5.20); LYMPHOCYTES PERCENT AUTO 24 % (21-46); MONOCYTES ABSOLUTE AUTO 0.36 K/mm3 (0.16-1.47); MONOCYTES PERCENT AUTO 3 % (4-13); Mean Corpuscular HGB Conc 32.6 g/dL (31.5-36.5); Mean Corpuscular Volume 80 fL (80-100); NEUTROPHILS ABSOLUTE AUTO 7.72 K/mm3 (1.96-9.15); NEUTROPHILS PERCENT AUTO 69 % (41-73); NRBC ABSOLUTE 0.00 K/mm3 (0.00-0.02); NRBC Auto 0.0 /100 WBC (0.0-0.2); Platelet Count 503 K/mm3 (150-400); RDW Coefficient Variation 14.5 % (11.7-14.2); RDW Standard Deviation 42.2 fL (35.1-46.3)
[2025-07-23 16:01] LABS: Alanine Aminotransfer (ALT/SGP 15.0 U/L (12-78); Albumin, Blood 3.3 g/dL (3.4-5.0); Albumin/Globulin Ratio 1.1 (0.8-1.8); Anion Gap 8.0 mmol/L (3-11); Aspartate Aminotrans (AST/SGOT 15.0 U/L (12-37); Bilirubin, Total 0.2 mg/dL (0.1-1.0); Blood Urea Nitrogen 8.0 mg/dL (8-24); CO2, Blood 28.0 mmol/L (21-32); Calcium, Blood 9.2 mg/dL (8.5-10.1); Chloride, Blood 105.0 mmol/L (98-108); Creatinine, Blood 1.08 mg/dL (0.40-1.00); Globulin, Blood 3.0 g/dL (2.2-4.0); Glucose, Blood 87.0 mg/dL (70-99); Potassium, Blood 3.6 mmol/L (3.5-5.5); Sodium, Blood 137.0 mmol/L (136-145); Total Protein, Blood 6.3 g/dL (6.4-8.2)
[2025-07-23] MEDS ORDERED: OMEP20ER PO (16:02)
[2025-07-23 16:19] LABS: Source, Urine Clean Catch
[2025-07-23] MEDS ORDERED: DiphenhydrAMINE HCl 50 MG/ML 1ML Vial IV ONE (16:25)
[2025-07-23] MEDS ORDERED: NS 1,000 ML IV SCH (16:25)
[2025-07-23 17:03] LABS: Color, Urine Yellow (P-Yellow); Glucose Qualitative, Urine Neg (Neg); Ketones, Urine 2+ (Neg); Leukocyte Esterase, Urine 3+ (Neg); Protein, Urine 2+ (Neg); Specific Gravity, Urine 1.025 (1.003-1.022); Urobilinogen, Urine NORM (Normal)
[2025-07-23 17:27] LABS: Bilirubin, Urine 1+ (Neg)
[2025-07-23 17:28] LABS: Red Blood Cells, Urine 0-2 /hpf (0-2)
[2025-07-23] MEDS ORDERED: CEPH500 PO (18:16)
[2025-07-23 18:30] VITALS: BP 122/72
== END 2025-07-23 18:55 | disposition home or self-care (01) ==
LOC: ER 14:48
PROVIDERS: Student in an Organized Health Care Education/Training Program
DX: N30.00 Acute cystitis without hematuria (principal); R19.7 Diarrhea, unspecified; J44.89 Other specified chronic obstructive pulmonary disease; Z99.81 Dependence on supplemental oxygen; Z79.899 Other long term (current) drug therapy; Z88.2 Allergy status to sulfonamides; Z88.8 Allergy status to other drugs, medicaments and biological substances; Z87.891 Personal history of nicotine dependence
CPT/HCPCS: 71046; 80053; 81001; 83690; 85025; 87086; 93005; 93010; 96361; 96374; 96375; 99284-25; A9270; J1200; J1790; J7030